=== PATIENT | female | born 1940 | race Caucasian/White ===

== ENCOUNTER → 2018-12-01 15:09 | Outpatient (CLI) | payer MEDICARE, OTHER, SELFPAY ==
[2018-12-01 16:13] LABS: Alanine Aminotransferase 44 U/L (12-78); Albumin/Globulin Ratio 1.3 (1.1-1.8); Alkaline Phosphatase 106 U/L (46-116); Anion Gap 15.4 mEq/L (5-15); Aspartate Amino Transferase 22 U/L (15-37); Bilirubin,Total 0.2 mg/dL (0.2-1.0); Blood Urea Nitrogen 13 mg/dL (7-18); Calcium 9.5 mg/dL (8.5-10.1); Carbon Dioxide 28 mmol/L (21.0-32.0); Chloride 101 mmol/L (98-107); Creatinine,Serum 0.69 mg/dL (0.55-1.02); Estimated Glomerular Filt Rate 83 ml/min (>60); GFR (African American) 100 ML/MIN (>60); Glucose 114 mg/dL (74-106); Potassium 5.4 mmoL/L (3.5-5.1); Sodium 139 mmol/L (136-145)
== END ==
PROVIDERS: Visit Provider Nurse Practitioner Family
DX: R10.32 Left lower quadrant pain (principal)
CPT/HCPCS: 36415; 80053

== ENCOUNTER → 2018-12-03 09:04 | Outpatient (CLI) | payer MEDICARE, OTHER, SELFPAY ==
--- NOTE | 2018-12-03 09:08 | CT_ITS ---
CT abdomen pelvis w con INDICATION: ITS.REASON: LLQ PAIN, HEMATOCHEZIA ORDERING PHYSICIAN: Jennifer Faulkner PATIENT AGE: 78 years COMPARISON: No previous . TECHNIQUE: 75 cc Optiray 350 followed IV contrast utilized. Oral contrast also utilized Axial images obtained with sagittal and coronal reformats. All CT scans at the facility use one or more dose reduction, viz: automated exposure control, ma/kV adjustment per patient size (including targeted exams where dose is matched to indication, i.e. head), or iterative reconstruction technique. FINDINGS: Lung bases. Nothing acute no significant findings. Abdomen/pelvis. Liver appears satisfactory. Spleen unremarkable. Previous cholecystectomy. No biliary duct dilatation. Pancreas. No significant findings. Modest volume and size pancreas with the upper normal caliber common duct as it passes of the head of pancreas likely reflecting postcholecystectomy changes. Diffuse at atherosclerotic calcification aorta and common iliac vessels with no dilatation Left adrenal mass, nodule measures up to 3.3 cm x 2.7 cm.. This is fairly low-density but does measure 60 hu on this postcontrast study-thus cannot confirm benign adenoma.. Will benefit from a follow-up CT with and without contrast on subsequent studies. Right adrenal unremarkable tract Kidneys appear normal size and appearance with no calculi nor obstruction. Ureters unremarkable Pelvis previous hysterectomy. No free fluid in cul-de-sac. Urinary bladder unremarkable GI TRACT The prominent colonic diverticulosis most pronounced & extensive throughout sigmoid colon. There are a few scattered diverticula at the descending colon. There is prominent diffuse wall thickening throughout the sigmoid colon. This involves up to over 12 cm length of colon. This diffuse involvement is more suggestive of a colitis however there are a few slightly slightly thickened diverticulum in some scant paracolic fat stranding superior to the proximal sigmoid colon, coronal 23 days 22 and sagittal slice 57, 56, which may reflect an area of diverticulitis associated with a more diffuse colitis. Once the current acute episode is resolved this segment warrants further evaluation with endoscopy to further evaluate. Proximal this point there is moderate to generous stool throughout the right and transverse colon and flexures. The terminal ileum appears normal. Appendix not discretely visualized but no appendicitis. Distal small bowel is normalProximal small bowel upper normal with increased fluid and gas in the moderate scattered air-fluid levels at the proximal small bowel. Stomach with upper normal wall thickness. Degenerative changes throughout the spine . Prominent degenerative disc space during most pronounced at L4/5 T12/L1 and L1/L2. IMPRESSION 1. Prominent colonic diverticulosis most extensive in pronounced at the sigmoid colon. 2. However there is very prominent diffuse wall thickening throughout the entire sigmoid colon. Suspect this reflects more diffuse underlying Sigmoid Inflammation/Colitis. . I would note minimal pericolic stranding above the proximal sigmoid colon, associated a few slightly thickened diverticulum. This may reflect may reflect an associated minimal acute diverticulitis component is well Follow-up endoscopy of this area was a current acute episode resolves recommended. 3. Incidental 3.3 cm left adrenal mass. Fairly low-density cannot confirm benign adenoma on this postcontrast study Recommend follow-up pre-and postcontrast CT study in follow-up to further evaluate. (Or follow-up CT adrenal protocol CT)
== END ==
PROVIDERS: PCP Nurse Practitioner Family; Visit Provider Nurse Practitioner Family
DX: R10.32 Left lower quadrant pain (principal); K92.1 Melena
CPT/HCPCS: 74177; Q9967

== ENCOUNTER → 2020-02-07 16:20 | Outpatient (CLI) | payer MEDICARE, OTHER, SELFPAY | PROVIDERS: Visit Provider Nurse Practitioner Family | DX: R19.7 Diarrhea, unspecified (principal) | CPT/HCPCS: 87045; 87177; 87493 ==

== ENCOUNTER 2020-02-15 10:27 | Observation (INO) | payer MEDICARE, OTHER, SELFPAY ==
--- NOTE | 2020-02-15 | US_ITS ---
APPROVED REPORT Exam Type: Ankle to Brachial Index Slater Apprentice: Maya Rios CRT Indications Claudication: Rest Pain: Current Smoker Risk Factors Hypertension Current Smoker Pressures/Indices Right Indices Left Indices Brachial 199.00 mmHg Brachial 194.00 mmHg Low Thigh 128.00 mmHg 0.64 Low Thigh 50.00 mmHg 0.25 Calf 131.00 mmHg 0.66 Calf 57.00 mmHg 0.29 Ankle(PT) 133.00 mmHg 0.67 Ankle(PT) 62.00 mmHg 0.31 Ankle(DP) 128.00 mmHg 0.64 Ankle(DP) 58.00 mmHg 0.29 Digit 86.00 mmHg 0.43 Digit Findings R ANTHONY 0.7 L ANTHONY 0.3 R TBI 0.4 L TBI Unobtainable Waveforms and pulses diminished Conclusion R ANTHONY 0.7 L ANTHONY 0.3 R TBI 0.4 L TBI Unobtainable Waveforms and pulses diminished Moderate right arterial disease Severe left arterial disease Critical Notification Critical Value: Yes Physician Notified Date: 02/15/2020 Time: 10:07 Physician Name: Jennifer Faulkner Report Read Back Electronically signed by : Roland Balbuena MD 02/15/2020 17:28:08
[2020-02-15 10:33] VITALS: BMI 17.1
--- NOTE | 2020-02-15 11:29 | ECG_ITS ---
APPROVED REPORT Exam: Resting ECG HR:69 bpm ECG Measurements Heart Rate 69 AXES OH 142 P 66 QRSd 78 QRS 83 QT 404 T 60 QTc 432 <Conclusion> Normal sinus rhythm Normal ECG Electronically signed by : Iglesia Silva, 02/16/2020 17:09:19
[2020-02-15 11:56] VITALS: PULSE 71; RESP 18; TEMP 36.6; O2SAT 97
--- NOTE | 2020-02-15 12:04 | P.CONPHA_ITS ---
[facility] Pharmacy VTE Monitoring - Patient Demographics Admission date: 02/15/20 Report Date: 02/15/20 Time: 12:04 Allergies/Adverse Reactions: Patient Allergies No Known Allergies Allergy (Verified 02/15/20 12:00) Height: 1.7 m Weight: 49.612 kg - VTE Risk VTE Score: 5 VTE Risk Level: Low Risk - Prophylaxis VTE Prophylaxis Ordered?: Yes Types of VTE Prophylaxis: TEDS Knee High Location of Applied Device: Bilateral Lower Extremeties
--- NOTE | 2020-02-15 12:20 | HMH.CNCARD ---
History of Present Illness Consult date: 02/15/20 Requesting physician: Iglesia Alcantar Chief complaint: Left leg pain Additional Medical History:: 1. Tobacco use 2. PAD A. ANTHONY, 02/15/2020, left 0.3, right 0.7 3. HTN 4. History of breast cancer, 2005 5. Colonic diverticulosis and possible colitis, CT of the abdomen 11/2018 6. 3.3 cm left adrenal mass, CT of the abdomen 11/2018 IMPRESSION 1. Prominent colonic diverticulosis most extensive in pronounced at the sigmoid colon. 2. However there is very prominent diffuse wall thickening throughout the entire sigmoid colon. Suspect this reflects more diffuse underlying Sigmoid Inflammation/Colitis. . I would note minimal pericolic stranding above the proximal sigmoid colon, associated a few slightly thickened diverticulum. This may reflect may reflect an associated minimal acute diverticulitis component is well Follow-up endoscopy of this area was a current acute episode resolves recommended. 3. Incidental 3.3 cm left adrenal mass. Fairly low-density cannot confirm benign adenoma on this postcontrast study Recommend follow-up pre-and postcontrast CT study in follow-up to further evaluate. (Or follow-up CT adrenal protocol CT) Dictated By: Terrance Zuniga Signed By: <Electronically signed by Terrance Zuniga in OV> 12/03/18 [id number] History of present illness: 79-year-old white female admitted by Dr. Alcantar after having an ANTHONY this morning for left leg pain with walking. Patient's ANTHONY on the left leg noted to be 0.3 and on the right leg 0.7. She relates increasing episodes of discomfort in the left ankle and lower calf area over the last several months (just walking from room to room in her house). She also relates discoloration of the ankle area. She denies any discomfort in the thighs or buttocks area. She does continue to smoke. She denies diabetes. [facility] History Medical History: Reports:: Cancer (BREAST IN 2005), Hypertension Denies:: Diabetes Mellitus Type 1, Diabetes Mellitus Type 2, MRSA *Have you ever received a pneumonia vaccine?: Yes *Have you received a flu vaccine this season?: Yes Other Surgeries: Yes: Cholecystectomy, Colonoscopy, Hysterectomy-Total Amputation: No - *Social History Smoking Status: Current every day smoker # Packs/Day (cigarettes): 1 Alcohol Intake: never *Occupational Status:: retired *Travel in the last 8 weeks: None Family Hx:: No significant family history Meds Home Medications Medication Instructions Recorded Confirmed Type Diphenoxylate HCl/Atropine 1 tab PO TIDP PRN 02/15/20 02/15/20 History [Lomotil 2.5-0.025 mg Tablet] Multivitamin 1 each PO DAILY 02/15/20 02/15/20 History atenoloL [Atenolol 100mg Tab] 100 mg PO DAILY 02/15/20 02/15/20 History Allergies Allergy/AdvReac Type Severity Reaction Status Date / Time No Known Allergies Allergy Verified 02/15/20 12:00 Review of Systems - Review of Systems Review of systems:: pertinent systems reviewed and negative unless documented below - *Cardiovascular Reports shortness of breath with activity, Denies chest pain - *Respiratory Reports shortness of breath with activity, Denies cough - *Gastrointestinal Denies bright, red blood in stools, Denies nausea, Denies vomiting - *Genitourinary Denies blood in urine - *Musculoskeletal Denies joint pain, Denies back pain - *Neurologic Denies dizziness, Denies fainting Exam Vital signs and Labs for Last 24 Hours: Temp Pulse Resp Pulse Ox 97.9 F 71 18 97 02/15/20 11:56 02/15/20 11:56 02/15/20 11:56 02/15/20 11:56 I & O for Last 24 hours: Intake & Output 02/13/20 02/14/20 02/15/20 02/16/20 11:59 11:59 11:59 11:59 Weight 109 lb 6 oz - *Routine HEENT Exam Head: Present: normocephalic Eye: Present: EOMI, PERRL ENT: Present: mucous membranes moist - *Routine Neck Exam Present: supple. Absent: JVD, carotid bruit - *Routine Respiratory Exam Present: CTA b
[2020-02-15 12:28] LABS: Basophils % 0.4 % (0.1-2.0); Chloride 96 mmol/L (98-107); Eosinophils # 0.1 K/mm3 (0.0-0.4); Eosinophils % 0.7 % (0.1-12.0); Hematocrit 51.4 % (37.0-47.0); Hemoglobin 17.6 g/dL (12.2-16.2); Lymphocytes # 1.9 K/mm3 (0.7-4.5); Lymphocytes % 16.9 % (10-50); Mean Corpuscular HGB Conc 34.3 g/dL (31.8-35.4); Mean Corpuscular Hemoglobin 35.3 pg (27.0-31.2); Mean Corpuscular Volume 102.9 fl (81-99); Mean Platelet Volume 7.6 fl (7.4-10.4); Monocytes # 0.6 K/mm3 (0.1-1.0); Monocytes % 4.9 % (1.7-9.3); Neutrophils # 8.6 K/mm3 (1.8-7.8); Neutrophils % 77.2 % (37.0-80.0); Platelet Count 453 K/mm3 (142-424); Potassium 4.2 mmoL/L (3.5-5.1); Red Blood Count 4.99 M/mm3 (4.20-5.40); Red Cell Distribution Width 12.7 % (11.5-17.5); Sodium 135 mmol/L (136-145); White Blood Count 11.2 K/mm3 (4.8-10.8)
[2020-02-15 12:31] LABS: Anion Gap 12.2 mEq/L (5-15); Blood Urea Nitrogen 13 mg/dl (7-17); Carbon Dioxide 31 mmol/L (22.0-30.0); Creatinine Clearance Estimated 37 mL/min (50-200); Estimated Glomerular Filt Rate 97 ml/min (>60); GFR (African American) 117 ML/MIN (>60)
[2020-02-15 12:32] LABS: Calcium 9.4 mg/dl (8.4-10.2); Glucose 102 mg/dl (74-100)
--- NOTE | 2020-02-15 12:52 | PC.NURSE ---
Jesus AGUILAR CALLED THIS RN AND STATED PT WOULD NOT HAVE PROCEDURE TODAY SO SHE CAN HAVE A REGULAR DIET TRAY. PROCEDURE IS PLANNED FOR TOMORROW.
[2020-02-15 16:00] VITALS: BP 145/95; PULSE 72; RESP 14; TEMP 36.6; O2SAT 98
--- NOTE | 2020-02-15 16:50 | HMH.HP ---
*Admission Date: 02/15/20 *Chief complaint: Left foot pain *History of present illness: 79-year-old female with history of hypertension and cigarette use was admitted to the hospital after abnormal ANTHONY revealed severe peripheral arterial disease in the left lower leg. Patient does not have rest pain but does have pain in the left lower leg with standing and light activity. She has no personal history of ulcerations or vascular disease. Due to severity of disease patient was admitted for cardiology consultation. Patient has been evaluated by cardiology and is scheduled for catheterization and potential intervention in the morning [facility] History I have reviewed the patient's past medical history: Yes Medical History: Reports:: Cancer (BREAST IN 2005), Hypertension Denies:: Diabetes Mellitus Type 1, Diabetes Mellitus Type 2, MRSA *Have you ever received a pneumonia vaccine?: Yes *Have you received a flu vaccine this season?: Yes Other Surgeries: Yes: Cholecystectomy, Colonoscopy, Hysterectomy-Total Amputation: No - *Social History Smoking Status: Current every day smoker # Packs/Day (cigarettes): 1 Alcohol Intake: never *Occupational Status:: retired *Travel in the last 8 weeks: None Family Hx:: No significant family history Review of Systems - Review of Systems Review of systems:: pertinent systems reviewed and negative unless documented below - *Neurologic Denies dizziness, Denies fainting Meds Home Medications Medication Instructions Recorded Confirmed Type Diphenoxylate HCl/Atropine 1 tab PO TIDP PRN 02/15/20 02/15/20 History [Lomotil 2.5-0.025 mg Tablet] Multivitamin 1 each PO DAILY 02/15/20 02/15/20 History atenoloL [Atenolol 100mg Tab] 100 mg PO DAILY 02/15/20 02/15/20 History Allergies Allergy/AdvReac Type Severity Reaction Status Date / Time No Known Allergies Allergy Verified 02/15/20 12:00 Exam Vital signs and Labs for Last 24 Hours: Temp Pulse Resp BP Pulse Ox 97.8 F 72 14 145/95 H 98 02/15/20 16:00 02/15/20 16:00 02/15/20 16:00 02/15/20 16:00 02/15/20 16:00 Laboratory Results - last 24 hr 02/15/20 11:30: WBC 11.2 H, RBC 4.99, Hgb 17.6 H, Hct 51.4 H, MCV 102.9 H, MCH 35.3 H, MCHC 34.3, RDW 12.7, Plt Count 453 H, MPV 7.6, Neut % (Auto) 77.2, Lymph % (Auto) 16.9, [place] % (Auto) 4.9, Eos % (Auto) 0.7, Baso % (Auto) 0.4, Neut # (Auto) 8.6 H, Lymph # (Auto) 1.9, [place] # (Auto) 0.6, Eos # (Auto) 0.1, Baso # (Auto) 0.0 02/15/20 11:30: Sodium 135 L, Potassium 4.2, Chloride 96 L, Carbon Dioxide 31 H, Anion Gap 12.2, BUN 13, Creatinine 0.60, Estimated Creat Clear 37, Estimated GFR 97, Est GFR ( Amer) 117, Glucose 102 H, Calcium 9.4 I & O for Last 24 hours: Intake & Output 02/13/20 02/14/20 02/15/20 02/16/20 11:59 11:59 11:59 11:59 Weight 109 lb 6 oz Narrative: Patient is awake and alert sitting up in bed. Lungs are clear. Heart has a regular rate and rhythm. Abdomen is soft. Patient has active range of motion in the lower extremities. There is some faint erythema of the skin of the left foot and ankle. Patient has palpable pulses in both femoral arteries, right popliteal artery at 1+, I am unable to elicit a left popliteal arterial pulse, faintly palpable dorsalis pedis pulse in the right foot, nonpalpable pulse in the left foot Assessment and Plan (1) Claudication of both lower extremities Current visit: Yes Status: Acute Category: Medical Code(s): I73.9 - Peripheral vascular disease, unspecified (2) Peripheral arterial disease Current visit: Yes Status: Acute Category: Medical Code(s): I73.9 - Peripheral vascular disease, unspecified (3) Tobacco use Current visit: Yes Status: Acute Category: Social Hx Code(s): Z72.0 - Tobacco use (4) Hypertension Current visit: Yes Status: Acute Category: Medical Code(s): I10 - Essential (primary) hypertension - Assessment and plan all Dx Assessment and Plan for all problems:: Stacey
[2020-02-15 19:52] VITALS: BP 158/82; PULSE 73; RESP 16; TEMP 36.9; O2SAT 96
[2020-02-15 20:00] VITALS: O2SAT 96
[2020-02-16] VITALS (45 sets, daily range): BP systolic 105–186; BP diastolic 58–104; PULSE 56–78; RESP 16–18; TEMP 36.3–36.8; O2SAT 91–100; BMI 17.4
--- NOTE | 2020-02-16 | IR_ITS ---
APPROVED REPORT Patient Location: Inpatient PROCEDURES Right femoral arterial access Right retrograde femoral angiogram Catheter placement in the abdominal aorta Abdominal aortography Repositioning of the catheter in the abdominal aorta Bilateral iliofemoral runoff Left femoral arterial access Left retrograde femoral angiogram Bare-metal stent deployment to the distal abdominal aorta extending to the right and left common iliac artery Bare-metal stent deployment to the left external iliac artery INDICATION Limb threatening ischemia left leg 0.3 [place] class IV, Occluded left common and external iliac artery, Severe stenosis in the right common iliac artery, Peripheral artery disease Informed consent was obtained prior to the procedure. COMPLICATIONS none Estimated Blood Loss: less than 10 mls TECHNIQUE 1% lidocaine used anesthetize the right groin the right femoral artery was accessed via the Salinger technique and retrograde angiography was performed. An advantage wire was used to traverse the tortuosity and atherosclerosis in the right common iliac artery and the pigtail catheter was placed into the distal abdominal aorta. Abdominal aortography was performed. Following this bilateral runoff was performed. The catheter was repositioned for the bilateral iliofemoral runoff. Following this 1% lidocaine was used to anesthetize the left groin and the left femoral artery was accessed via the Salinger technique. Retrograde angiography was performed. Therapeutic heparin was administered. 6 Nepali sheaths were placed over the wire into the right and left femoral artery. Two 8 mm x 100 mm self-expanding stents were deployed in the distal abdominal aorta extending into the bilateral common iliac arteries. An additional 7 mm x 80 mm self-expanding stent was placed in the left external iliac artery followed by an additional 6 mm x 40 mm self-expanding stent into the distal portion of the left external iliac artery. Following this to 7 mm x 80 mm balloons were deployed in the distal abdominal aorta at 12 janice each to post dilate. A 7 mm x 20 mm balloon was deployed at 14 janice in the right common iliac artery to post dilate the eccentric lesion. Excellent angiographic results were obtained. At the end of the procedure the patient was transferred to the postop holding her in stable condition for sheath removal ANGIOGRAPHIC RESULTS The distal abdominal aorta is mildly calcified with no significant stenosis greater than 20%. The left common internal and external iliac artery is completely occluded. There is reconstitution at the left common femoral artery. The right common iliac artery has an ostial complex calcified concentric 80% stenosis followed by 40% additional stenoses right internal iliac arteries patent and the right external iliac artery has a 50% eccentric stenosis. The right profunda femoris artery is a small atretic artery barely visualized. The right superficial femoral artery is a large-caliber vessel giving branches out to the thigh muscles. Proximally there are 30 and 40% stenoses with mid vessel 50% stenosis. The SFA is a large caliber vessel which extends into a widely patent right popliteal artery with mild atheromatous plaque. Distally the anterior tibialis posterior tibialis and peroneal artery are severely diseased. There appears to be scant two-vessel flow into the foot from the peroneal artery and posterior tibialis artery. The left profunda femoris artery is widely patent. The left superficial femoral artery is proximally occluded and occluded through its entire course. There is reconstitution at Terry's canal. The left popliteal artery is a small caliber artery but mac
--- NOTE | 2020-02-16 03:27 | PC.NURSE ---
Pt is A&Ox4 and has ambulated independently in room and tolerated well. Pt denies any pain, N/V/D, or SOA. LLE foot cool to touch, light purple in color, and increased cap refill time compared to right foot. Doppler used to detect dorsalis pedis and posterior tibia artery pulses. Faint pulses noted to right foot. Lungs CTA and sats 96-98% on room air. Pt has been NPO for anticipated BLE angiogram in am. VSS, call light within reach, will continue to monitor.
--- NOTE | 2020-02-16 07:23 | P.PN_ITS ---
Internal Medicine - PN: Subj *Date: 02/16/20 *Time: 07:23 Interval history: Patient has no complaints. She denies any discomfort from the left foot overnight. Exam Vital signs and Labs for Last 24 Hours: Temp Pulse Resp BP Pulse Ox 97.7 F 60 16 156/64 H 94 L 02/16/20 04:00 02/16/20 04:00 02/16/20 04:00 02/16/20 04:00 02/16/20 04:00 Laboratory Results - last 24 hr 02/15/20 11:30: WBC 11.2 H, RBC 4.99, Hgb 17.6 H, Hct 51.4 H, MCV 102.9 H, MCH 35.3 H, MCHC 34.3, RDW 12.7, Plt Count 453 H, MPV 7.6, Neut % (Auto) 77.2, Lymph % (Auto) 16.9, [place] % (Auto) 4.9, Eos % (Auto) 0.7, Baso % (Auto) 0.4, Neut # (Auto) 8.6 H, Lymph # (Auto) 1.9, [place] # (Auto) 0.6, Eos # (Auto) 0.1, Baso # (Auto) 0.0 02/15/20 11:30: Sodium 135 L, Potassium 4.2, Chloride 96 L, Carbon Dioxide 31 H, Anion Gap 12.2, BUN 13, Creatinine 0.60, Estimated Creat Clear 37, Estimated GFR 97, Est GFR ( Amer) 117, Glucose 102 H, Calcium 9.4 I & O for Last 24 hours: Intake & Output 02/13/20 02/14/20 02/15/20 02/16/20 11:59 11:59 11:59 11:59 Intake Total 260 / 260 Balance 260 / 260 Weight 109 lb 6 oz 111 lb 1 oz Narrative: Patient appears comfortable. Lungs are distant but clear. Heart has a regular rate and rhythm. Assessment and Plan (1) Claudication of both lower extremities Current visit: Yes Status: Acute Category: Medical Code(s): I73.9 - Peripheral vascular disease, unspecified (2) Peripheral arterial disease Current visit: Yes Status: Acute Category: Medical Code(s): I73.9 - Peripheral vascular disease, unspecified (3) Tobacco use Current visit: Yes Status: Acute Category: Social Hx Code(s): Z72.0 - Tobacco use (4) Hypertension Current visit: Yes Status: Acute Category: Medical Code(s): I10 - Essential (primary) hypertension - Assessment and plan all Dx Assessment and Plan for all problems:: Patient will have angiogram with bilateral runoffs today with attention to the left lower leg.
--- NOTE | 2020-02-16 09:08 | HMH.PNCARD ---
Subjective Date: 02/16/20 Time: 09:05 Principal diagnosis: severe PAD Interval history: This is a 79-year-old white female who was admitted to the hospital with severe PAD, abnormal ANTHONY and claudication. The patient states that she has been having discomfort in her left leg, ankle and lower calf over the last several months. She states that she has the pain in her left lower extremity when she is just walking around her house from room to room. She states that the pain does start with walking about 50 yards or so. She states that she does have some discoloration in her left ankle area at times. The patient states that she does have aching in her right lower extremity as well but it is not as bad as her left lower extremity. She denies any chest pain or pressure. She denies any shortness of breath or edema. She denies any fever, chills, nausea, vomiting, diarrhea, PND or orthopnea. She does continue to smoke. ANTHONY showed left leg noted to be 0.3 and on the right leg 0.7. Exam Vital signs and Labs for Last 24 Hours: Temp Pulse Resp BP Pulse Ox 98.2 F 69 16 155/79 H 95 02/16/20 08:00 02/16/20 08:00 02/16/20 08:00 02/16/20 08:00 02/16/20 08:00 Laboratory Results - last 24 hr 02/15/20 11:30: WBC 11.2 H, RBC 4.99, Hgb 17.6 H, Hct 51.4 H, MCV 102.9 H, MCH 35.3 H, MCHC 34.3, RDW 12.7, Plt Count 453 H, MPV 7.6, Neut % (Auto) 77.2, Lymph % (Auto) 16.9, [place] % (Auto) 4.9, Eos % (Auto) 0.7, Baso % (Auto) 0.4, Neut # (Auto) 8.6 H, Lymph # (Auto) 1.9, [place] # (Auto) 0.6, Eos # (Auto) 0.1, Baso # (Auto) 0.0 02/15/20 11:30: Sodium 135 L, Potassium 4.2, Chloride 96 L, Carbon Dioxide 31 H, Anion Gap 12.2, BUN 13, Creatinine 0.60, Estimated Creat Clear 37, Estimated GFR 97, Est GFR ( Amer) 117, Glucose 102 H, Calcium 9.4 I & O for Last 24 hours: Intake & Output 02/13/20 02/14/20 02/15/20 02/16/20 23:59 23:59 23:59 23:59 Intake Total 260 / 260 0 / 0 Balance 260 / 260 0 / 0 Weight 109 lb 6 oz 111 lb 1 oz - Constitutional no acute distress, thin - *Routine HEENT Exam Head: Present: normocephalic, atraumatic Eye: Present: EOMI, PERRL ENT: Present: mucous membranes moist - *Routine Neck Exam Present: supple, full ROM, normal carotid upstroke. Absent: JVD, carotid bruit, lymphadenopathy - *Routine Respiratory Exam Present: CTA bilaterally - *Routine Cardiovascular Exam Present: RRR, Normal S1, Normal S2. Absent: murmur - *Routine Abdominal Exam Present: soft, normoactive bowel sounds. Absent: tenderness, distended - *Routine Extremities Exam Present: full ROM, pulses intact (Except right and left PT and DP pulses are diminished), normal capillary refill. Absent: cyanosis, clubbing, edema - *Routine Skin Exam Present: intact, warm. Absent: erythema, rash - *Routine Neurological Exam Present: alert, oriented X3, CN II-XII intact. Absent: sensory deficit, motor deficit Progress Note: A&P (1) Claudication of both lower extremities Status: Acute Current Visit: Yes (2) Abnormal ankle brachial index (ANTHONY) Status: Acute Current Visit: Yes (3) Peripheral arterial disease Status: Acute Current Visit: Yes (4) Tobacco use Status: Acute Current Visit: Yes (5) Hypertension Status: Acute Current Visit: Yes Assessment and Plan for All Diagnoses:: Plan 1. The patient was admitted to the hospital secondary to claudication and PAD. She does have an abnormal ANTHONY, Patient's ANTHONY on the left leg noted to be 0.3 and on the right leg 0.7. She is scheduled to undergo bilateral iliofemoral runoff today secondary to her claudication, severe PAD and abnormal ANTHONY. If the patient requires any intervention will start on her left leg first as her left leg is more painful than her right. 2. The patient is educated the risk and benefits of proceeding with bilateral iliofemoral runoff. The patient verbalized understanding and is agreeable to proceeding with the procedure. 3. PAD is present.
--- NOTE | 2020-02-16 12:12 | PC.NURSE ---
1202 patient off floor
[2020-02-16 15:11] LABS: Microscopic, Urine URINE MICROSCOPIC (MICROSCOPIC)
[2020-02-16 15:18] LABS: Appearance,Urine CLEAR (Clear); Bilirubin,Urine Negative (Negative); Blood, Urine TRACE-L (Negative); Color,Urine YELLOW (Yellow); Glucose,Urine (UA) Negative (Negative); Ketones,Urine Negative (Negative); Leukocyte Esterase,Urine Negative (Negative); Nitrate,Urine Negative (Negative); Protein,Urine Negative (Negative); Specific Gravity, Urine <= 1.005 (1.005-1.030); Urobilinogen,Urine 0.2 EU/dl (0.2)
--- NOTE | 2020-02-16 15:21 | PC.NURSE ---
1500 PATIENT BACK ON FLOOR. A&O X4, LUNGS DIMINSHED, BUE PULSES +2, BLE PULSES +1. DRESSING ON RIGHT GROIN IS CLEAN, DRY AND INTACT. DRESSING ON LEFT GROIN HAS A SCANT AMOUNT OF BLOODY DRAINAGE. THIS RN ENCIRCLED AREA TO BETTER MONITOR. SPOUSE AT BEDSIDE. NO NEEDS OR CONCERNS AT THIS TIME.
[2020-02-16 15:42] LABS: Bacteria,Urine Trace /lpf; Squamous Epithelial Cell,Urine Occasional #/hpf (0-5)
[2020-02-16 16:03] LABS: CATHL Activated Clotting Time 286 SEC (74-125)
--- NOTE | 2020-02-16 19:11 | PC.NURSE ---
report given to hiram
[2020-02-17 04:00] VITALS: BP 134/75; PULSE 66; RESP 17; TEMP 36.8; O2SAT 94
[2020-02-17 05:00] VITALS: BMI 17.4
[2020-02-17 06:45] LABS: Basophils # 0.1 K/mm3 (0-0.2); Basophils % 0.4 % (0.1-2.0); Eosinophils # 0.1 K/mm3 (0.0-0.4); Eosinophils % 0.8 % (0.1-12.0); Hematocrit 43.9 % (37.0-47.0); Hemoglobin 14.9 g/dL (12.2-16.2); Lymphocytes # 1.8 K/mm3 (0.7-4.5); Lymphocytes % 13.9 % (10-50); Mean Corpuscular HGB Conc 34.1 g/dL (31.8-35.4); Mean Corpuscular Hemoglobin 35.7 pg (27.0-31.2); Mean Corpuscular Volume 104.9 fl (81-99); Mean Platelet Volume 6.7 fl (7.4-10.4); Monocytes # 0.6 K/mm3 (0.1-1.0); Monocytes % 4.8 % (1.7-9.3); Neutrophils # 10.4 K/mm3 (1.8-7.8); Neutrophils % 80.1 % (37.0-80.0); Platelet Count 319 K/mm3 (142-424); Red Blood Count 4.18 M/mm3 (4.20-5.40); Red Cell Distribution Width 12.8 % (11.5-17.5); White Blood Count 12.9 K/mm3 (4.8-10.8)
[2020-02-17 06:58] LABS: Chloride 102 mmol/L (98-107); Potassium 4.1 mmoL/L (3.5-5.1); Sodium 135 mmol/L (136-145)
[2020-02-17 07:00] LABS: Alanine Aminotransferase 30 U/L (12-78); Anion Gap 6.1 mEq/L (5-15); Aspartate Amino Transferase 43 U/L (14-36); Bilirubin,Unconjugated 0.4 mg/dL (0.0-1.1); Blood Urea Nitrogen 15 mg/dl (7-17); Carbon Dioxide 31 mmol/L (22.0-30.0); Creatinine Clearance Estimated 37 mL/min (50-200); Estimated Glomerular Filt Rate 120 ml/min (>60); GFR (African American) 145 ML/MIN (>60)
--- NOTE | 2020-02-17 07:00 | PC.NURSE ---
Pt is A&Ox4 and has ambulated well in room. Bilateral groin cath sites remain soft, slight bruising noted below dressings, and right groin site is C/D/I. The left groin site has some bleeding on previous shift and 2 border lines are marked. No further bleeding this shift.
[2020-02-17 07:01] LABS: Alkaline Phosphatase 81 U/L (38-126); Bilirubin,Direct 0.1 mg/dl (0.0-0.4); Bilirubin,Indirect 0.4 mg/dL (0.0-0.9); Bilirubin,Total 0.5 mg/dl (0.2-1.3); Calcium 8.9 mg/dl (8.4-10.2); Chol/HDL Ratio 2.6 (1-3.5); Cholesterol 166 mg/dl (140-200); Glucose 112 mg/dl (74-100); HDL Cholesterol 64 mg/dl (40-60); Total Protein,Serum 6.5 g/dl (6.3-8.2); Triglycerides 105 mg/dl (30-150); VLDL Cholesterol 21 mg/dL (0-40)
[2020-02-17 07:12] LABS: Direct LDL Cholesterol 83.24 mg/dL (100-129)
--- NOTE | 2020-02-17 07:15 | HMH.DCSUM ---
General - General Admission date:: 02/15/20 Discharge date: 02/17/20 HPI HPI: 79-year-old female with history of hypertension and cigarette use was admitted to the hospital after abnormal ANTHONY revealed severe peripheral arterial disease in the left lower leg. Patient does not have rest pain but does have pain in the left lower leg with standing and light activity. She has no personal history of ulcerations or vascular disease. Due to severity of disease patient was admitted for cardiology consultation. Patient has been evaluated by cardiology and is scheduled for catheterization and potential intervention in the morning Hospital Course Hospital Course: Patient was admitted. Cardiology was consulted. Angiogram with bilateral runoff with attention to the left was scheduled. On February 15 patient had angiogram by Dr. Coates. Findings are as follows: NGIOGRAPHIC RESULTS The distal abdominal aorta is mildly calcified with no significant stenosis greater than 20%. The left common internal and external iliac artery is completely occluded. There is reconstitution at the left common femoral artery. The right common iliac artery has an ostial complex calcified concentric 80% stenosis followed by 40% additional stenoses right internal iliac arteries patent and the right external iliac artery has a 50% eccentric stenosis. The right profunda femoris artery is a small atretic artery barely visualized. The right superficial femoral artery is a large-caliber vessel giving branches out to the thigh muscles. Proximally there are 30 and 40% stenoses with mid vessel 50% stenosis. The SFA is a large caliber vessel which extends into a widely patent right popliteal artery with mild atheromatous plaque. Distally the anterior tibialis posterior tibialis and peroneal artery are severely diseased. There appears to be scant two-vessel flow into the foot from the peroneal artery and posterior tibialis artery. The left profunda femoris artery is widely patent. The left superficial femoral artery is proximally occluded and occluded through its entire course. There is reconstitution at Terry's canal. The left popliteal artery is a small caliber artery but patent and gives rise to a small but patent anterior tibialis artery and posterior tibialis artery. The peroneal artery is barely identifiable. There does appear to be some scant flow with two-vessel runoff into the left foot. IMPRESSION Peripheral artery disease as described above most notably with occluded left common iliac artery internal and external iliac artery with successful reconstruction of the common and external iliac artery reducing the complete occlusion to less than 10% with 3 self-expanding stents as described above Successful reconstruction of the right common iliac artery severe disease reduced to less than 10% with one self-expanding bare-metal stent PLAN 1. Aspirin Plavix for 1 month followed by aspirin 81 daily combined with Xarelto 2.5 twice daily 2. Medical management 3. Physical therapy with rehabilitation 4. LDL less than 55 5. Avoidance of tobacco products 6. No attempt will be made to open the left superficial femoral artery unless limb threatening ischemia persists. By increasing inflow through the common and external iliac artery there should be significant improvement in the lower extremity ischemia Patient was observed overnight. She reported improvement in warmth of the foot. She denied any pain with ambulation. Patient was discharged home. She will follow-up in my office in [address] Coates as instructed Objective Vital signs: Temp Pulse Resp BP Pulse Ox 98.2 F 66 17 134/75 94 L 02/17/20 04:00 02/17/20 04:00 02/17/20 04:00 02/17/20 04:00 02/17/20 04:00 no acute distress - *Routine Respiratory Exam Present: CTA bilaterally - *Routine Cardiovascular Exam Present: RRR
[2020-02-17 07:32] VITALS: BP 131/55; PULSE 70; RESP 17; TEMP 36.6; O2SAT 94
--- NOTE | 2020-02-17 08:19 | HMH.PHACLD ---
April Leary has received discharge medication counseling on the following medications: NEW MEDICATIONS FOR PERIPHERAL STENT: ASPIRIN, PLAVIX, LIPITOR ANSWERED PATIENT'S QUESTIONS ABOUT SIDE EFFECTS.
[2020-06-13 09:29] LABS: CATHL Activated Clotting Time 164 SEC (74-125)
== END 2020-02-17 08:26 | disposition home or self-care (01) ==
LOC: 2ND 10:27
PROVIDERS: Internal Medicine; Nurse Practitioner Family; Admitting Provider Family Medicine; PCP Nurse Practitioner Family; Visit Provider Family Medicine
DX: I70.223 Atherosclerosis of native arteries of extremities with rest pain, bilateral legs (principal); I70.213 Atherosclerosis of native arteries of extremities with intermittent claudication, bilateral legs; I10 Essential (primary) hypertension; Z72.0 Tobacco use; I74.5 Embolism and thrombosis of iliac artery; I70.92 Chronic total occlusion of artery of the extremities; Z79.899 Other long term (current) drug therapy; I77.1 Stricture of artery
CPT/HCPCS: 36415; 37221; 37223; 80048; 80061; 80076; 81001; 85025; 85347; 93005; 93923; 99152; 99153; C1725; C1769; C1876; C1894; G0378; J1644; Q9966

== ENCOUNTER → 2021-04-16 15:22 | Outpatient (CLI) | payer MEDICARE, OTHER, SELFPAY ==
--- NOTE | 2021-04-16 15:29 | XR_ITS ---
PROCEDURE: XR CHEST 2V CLINICAL HISTORY: HTN,COUGH COMPARISON: CT ABDPELW CT abdomen pelvis w con from 12/03/2018 FINDINGS: The cardiomediastinal silhouette and pulmonary vascularity are within normal limits. There is hyperinflation with attenuation of the peripheral pulmonary vessels consistent with COPD/small airway disease. No lobar consolidation or collapse. Degenerative changes thoracolumbar junction. IMPRESSION: No acute findings. Dictated by: Roland Balbuena MD 04/16/2021 16:18 Roland Balbuena MD in [facility] 04/16/2021 16:18
== END ==
PROVIDERS: PCP Nurse Practitioner Family; Visit Provider Nurse Practitioner Family
DX: I10 Essential (primary) hypertension (principal); R05 Cough
CPT/HCPCS: 71046

== ENCOUNTER → 2021-04-24 09:04 | Outpatient (CLI) | payer MEDICARE, OTHER, SELFPAY ==
--- NOTE | 2021-04-24 09:08 | XR_ITS ---
PROCEDURE: XR DEXA AXIAL SKELETON CLINICAL HISTORY: OSTEOPOROSIS,SCREENING COMPARISON: No exams were available for comparison FINDINGS: The right hip BMD is 0.790 with a T-score of -1.2. The left hip BMD is 0.711 with a T-score of -1.9. The lumbar spine BMD is 1.123 with a T-score of 0.7. IMPRESSION: This patient is considered osteopenic according to the World Health Organization criteria. Bone density is between 10 and 25 percent below young normal. Fracture risk is moderate. Treatment is advised. Based on these results a follow-up exam is recommended in 2 year. Dictated by: Roland Balbuena MD 04/24/2021 15:34 Roland Balbuena MD in [facility] 04/24/2021 15:34
--- NOTE | 2021-04-24 09:26 | CA_ITS ---
APPROVED REPORT Recreation Programmer: EDOUARD Laterality: Bilateral Study Quality: Good Indications: bilateral bruits, PAD Risk Factors Hypertension: Hyperlipidemia PAD Smoking Doppler Spectral Velocity Analysis ECA (R) 135.40/12.00 cm/s ECA (L) 80.30/9.60 cm/s dICA (R) 99.40/34.30 cm/s dICA (L) 116.50/33.70 cm/s Una (R) 87.40/27.40 cm/s Una (L) 81.90/19.30 cm/s pICA (R) 53.10/16.30 cm/s pICA (L) 59.10/18.60 cm/s dCCA (R) 58.30/17.10 cm/s dCCA (L) 91.80/12.80 cm/s pCCA (R) 76.30/15.40 cm/s pCCA (L) 78.80/17.10 cm/s Vert (R) 64.30/8.60 cm/s Vert (L) 29.50/7.70 cm/s ICA/CCA 1.71 ICA/CCA 1.27 Findings Duplex evaluation demonstrates stenosis of the right proximal internal carotid artery <20%. Duplex evaluation demonstrates stenosis of the left proximal internal carotid artery <20%. Conclusion Duplex evaluation demonstrates stenosis of the right proximal internal carotid artery <20%. Duplex evaluation demonstrates stenosis of the left proximal internal carotid artery <20%. Electronically signed by : Roland Balbuena MD 04/24/2021 16:42:28
== END ==
PROVIDERS: PCP Nurse Practitioner Family; Visit Provider Nurse Practitioner Family
DX: R42 Dizziness and giddiness (principal); I73.9 Peripheral vascular disease, unspecified; Z13.6 Encounter for screening for cardiovascular disorders; Z13.820 Encounter for screening for osteoporosis; Z78.0 Asymptomatic menopausal state
CPT/HCPCS: 77080; 93880

== ENCOUNTER → 2021-06-25 07:16 | Outpatient (CLI) | payer MEDICARE, OTHER, SELFPAY ==
--- NOTE | 2021-06-25 | CA_ITS ---
APPROVED REPORT Exam: Pharmacologic Technologist: Elen Paez, Ht: 5 ft 7 in Wt: 110 lbs BSA: 1.57 m2 HR: 59 bpm BP: 160/90 mmHg Medical History Medications: Aspirin,,,,, Atenolol,,,,, Atorvastatin,,,,, XaRELTO,,,,, Multivitamin,,,,, VitaminC,,,,, Stress Test Details Test: LEXISCAN HR Resting HR: 64 bpm Max Heart Rate (APMHR): 142.498891 bpm Max HR Achieved: 85 bpm Target HR (85% APMHR): 120.795369 bpm % of APMHR: 59.86 Recovery HR: 82 bpm BP Resting BP: 160/90 mmHg Max BP: 160/90 mmHg Recovery BP: 133.0/74.0 mmHg ECG Resting ECG: Sinus Shay Clinical Reason for Termination: Completed Protocol Exercise duration: 04:04 min Highest Stage Achieved: Exercise capacity: 1.0 METs Stress ECG Conclusion Symptoms: None. Arrhythmias/Ectoy: None. ST-T Changes: <1.5mm ST Segment changes. Conclusion: Non-Diagnostic. Electronically signed by : Kevne Coates MD 06/27/2021 13:56:07
--- NOTE | 2021-06-25 07:16 | NM_ITS ---
APPROVED REPORT Exam: Nuclear Stress Test Indication: HTN, High cholesterol, Tobacco use, Chest pain, SOB Patient Location: Outpatient Stress Tech: Elen Paez [place] Tech:Elizabeth Parker, ARRT, RT (R)(N) Ht: 5 ft 6 in Wt: 112 lbs Bra Size: 34B HR: 64 bpm BP: 160/90 mmHg BSA: 1.56 m2 BMI: 18.0 History: HTN, High cholesterol, Tobacco use, Chest pain, SOB Procedure: Patient received a 0.4 mg of intravenous Lexiscan, resting heart rate 64 bpm, resting blood pressure 160/90 mmHg, with Lexiscan maximum heart rate achived was 85 bpm which is Less than 85 % of the maximum predicted heart rate and blood pressure was 160/90 mmHg. With Lexiscan, patient denied any complaint of chest pain. Electrocardiogram Resting electrocardiogram shows sinus rhythm, with Lexiscan there is less than 1.[address] segment depression noted from the baseline EKG. The EKG portion of the Lexiscan is nondiagnostic. Cardiac Stress and Resting SPECT Images: Cardiac Stress and Resting SPECT images were obtained using technetium 99m Myoview 30.5 mCi stress and 10.11 mCi at rest. Gated SPECT for analysis of segmental wall motion calculation of the ejection fraction also done. Prone images were also obtained. Cardiac stress and resting SPECT images show uniform myocardial activity without segmental perfusion abnormality, computer derived ejection fraction is 58% with no regional wall motion abnormality, right ventricle is normal size and contractility. Conclusion: 1. The EKG portion of the Lexiscan is nondiagnostic. 2. No scintigraphic evidence of reversible ischemia seen, computer derived ejection fraction 58% with no regional wall motion abnormality, right ventricle is normal size and contractility. 3. Normal Lexiscan Myoview study. Electronically signed by : Jemal Castañeda MD 07/05/2021 10:25:48
--- NOTE | 2021-06-25 09:14 | HMH.ITSHM ---
Current Home Medications as stated by this patient April Leary or veterans employment representative. []VITAMIN C RIVAROXABAN ATENOLOL MULTIVITAMIN ATORVASTATIN ASA
== END ==
PROVIDERS: PCP Nurse Practitioner Family; Visit Provider Physician Assistant
DX: R06.02 Shortness of breath (principal)
CPT/HCPCS: 78452; 93017; 93306; A9502; J2785

== ENCOUNTER 2022-08-08 20:54 | Emergency (ER) | payer MEDICARE, OTHER, SELFPAY ==
[2022-08-08 20:56] VITALS: BP 182/98; PULSE 62; RESP 16; TEMP 37; O2SAT 97; BMI 18.1
--- NOTE | 2022-08-08 21:23 | CT_ITS ---
PROCEDURE INFORMATION: Exam: CT Head Without Contrast Exam date and time: 08/08/2022 9:39 PM Age: 81 years old Clinical indication: Injury or trauma; Fall; Additional info: Head injury TECHNIQUE: Imaging protocol: Computed tomography of the head without contrast. Radiation optimization: All CT scans at this facility use at least one of these dose optimization techniques: automated exposure control; mA and/or kV adjustment per patient size (includes targeted exams where dose is matched to clinical indication); or iterative reconstruction. COMPARISON: US CA CAROTID DUPLEX BI 04/24/2021 9:34 AM FINDINGS: Brain: A nonacute lacunar infarct is visualized within the left thalamus. Artifact limits evaluation of the filemon. No acute intracranial hemorrhage is visualized. Hypodensity is identified within the anterior right temporal lobe, likely contributed by artifact, although edema/infarction cannot be excluded. Artifact also limits evaluation of the anterior left temporal lobe. There are scattered foci/areas of white matter hypodensity, likely representing small vessel ischemic disease. The acuity of the white matter disease is indeterminate. There is no midline shift. There is mild prominence of sulci, compatible with atrophy. Cerebral ventricles: No ventriculomegaly. Paranasal sinuses: Visualized sinuses are unremarkable. No fluid levels. Mastoid air cells: Minimal effusions within left mastoid air cells. Bones/joints: The calvarium demonstrates no evidence for a depressed fracture. Soft tissues: Soft tissue swelling/hematoma of the right parietal scalp. Vasculature: Nonspecific increased density of the intracranial arteries, with symmetric density of the middle cerebral arteries. This is of indeterminate clinical significance. Intracranial atherosclerosis visualized. IMPRESSION: 1. No acute intracranial hemorrhage. 2. Soft tissue swelling/hematoma of the right parietal scalp. 3. Hypodensity is identified within the anterior right temporal lobe, likely contributed by artifact, although edema/infarction cannot be excluded. If further evaluation is clinically indicated, an MRI of the brain is recommended. 4. A nonacute lacunar infarct is visualized within the left thalamus. 5. There are scattered foci/areas of white matter hypodensity, likely representing small vessel ischemic disease. 6. Mild atrophy. 7. Additional findings described above.
--- NOTE | 2022-08-08 21:41 | HMH.EDGENADL ---
Discharge Plan Disposition Patient Disposition: Home, Self-Care Condition: Good Prescriptions Prescriptions: No Action vit C-vitamin D3-herb no.313 250 mg-3.75 mcg -212.5 mg capsule PO Xarelto 2.5 mg tablet See Rx Instructions .ROUTE .COMPLEX Qty: 180 1RF Dose Instruction: Take 1 tablet by mouth twice daily Rx Instructions: Take 1 tablet by mouth twice daily atenolol 100 MG tablet 100 mg PO DIRECTED Rx Instructions: PT STATES SHE TAKES 100MG IN AM, AND 50MG IN THE EVENING. multivitamin 1 EACH tablet 1 each PO DAILY aspirin 81 MG tablet,chewable 81 mg PO DAILY atorvastatin 40 MG tablet 40 mg PO HS Referrals Follow up/Referrals: Deanne Sanon MD [Primary Care Provider] - See instructions Activity Restrictions/Add. Instructions Additional Instructions/Restrictions: Follow-up with your family doctor within 72 hours to ensure improvement symptoms. Careful monitoring over the next 24 to 48 hours will be important, delayed bleeds are uncommon, but happen. Look for symptoms of confusion, numbness/weakness/tingling anywhere in your body, vision changes, extreme sleepiness, or other changes from patient's baseline. Return to the ED if you have any other concerning signs or symptoms. Clinical Impressions Clinical Impression: Closed head injury Discharge ED Provider: Logan Morales General Adult HPI General Chief complaint: Head Injury Stated complaint: ao 08/08@2030 fell hit head on concreate Time Seen by Provider: 08/08/22 21:00 Mode of Arrival: Ambulatory Source of Information: Patient Limitations: No Limitations Description of Symptoms (Recalled from ER Triage Doc. by RN): pt fell off stair and hit back of the head on the concrete the pt states that she is on xerelto does have a goose egg on the top of the right side of her head. pt states no LOC no vison changes History of Present Illness HPI narrative: This is a 81-year-old female with history of ACS, tobacco use, hypertension, PAD status post lower extremity stenting on Xarelto who is presenting with fall from standing. Patient states that she was walking up steps when she lost her footing and fell backwards striking the right side of her posterior head. Did not lose consciousness. Denies vision changes, neurologic deficits, confusion, headache, nausea, vomiting, neck or back pain, or any other concerns. It was a mechanical fall, denies feelings of dizziness, lightheadedness, or any other findings. Related Data Home Medications Medication Instructions Recorded Confirmed atenolol 100 mg tablet 100 mg PO DIRECTED High blood 02/15/20 06/11/21 pressure multivitamin 1 each PO DAILY Supplement 02/15/20 06/11/21 aspirin 81 mg chewable tablet 81 mg PO DAILY Blood thinner 06/01/20 06/11/21 atorvastatin 40 mg tablet 40 mg PO HS Heartburn 06/01/20 06/11/21 vitamin C 250 mg-vitamin D3 3.75 cap PO 06/11/21 06/11/21 mcg-herbal complex 212.5 mg capsule Previous Rx's Medication Instructions Recorded rivaroxaban 2.5 mg tablet (Xarelto) See Rx Instructions .Route 07/08/22 .COMPLEX #180 tabs Allergies Allergy/AdvReac Type Severity Reaction Status Date / Time No Known Allergies Allergy Verified 06/11/21 14:29 [facility] Disclaimer: The information contained in this section may have been updated after the patient was seen, as this information can be updated by other users. Social History Smoking Status: Current every day smoker tobacco type: cigarettes packs per day: 1 alcohol intake: current current occupational status: retired Travel in the last 8 weeks: Inside the [place] caffeine: No ROS Obtained: Yes All systems reviewed & no additional complaints except as documented Physical Exam General General appearance: alert and in no apparent distress Head Head exam: normocephalic, normal inspection and other (Traumatic hematoma overlying occipitoparietal scalp withou
--- NOTE | 2022-08-08 21:59 | PC.NURSE ---
Dr. Morales speaking with [facility]
[2022-08-08 22:25] VITALS: BP 180/88; PULSE 91; RESP 18; TEMP 36.6; O2SAT 99
== END 2022-08-08 22:28 | disposition home or self-care (01) ==
PROVIDERS: Emergency Provider Emergency Medicine; PCP Family Medicine
DX: S09.90XA Unspecified injury of head, initial encounter (principal); I10 Essential (primary) hypertension; I24.9 Acute ischemic heart disease, unspecified; I73.9 Peripheral vascular disease, unspecified; F17.210 Nicotine dependence, cigarettes, uncomplicated; Z79.01 Long term (current) use of anticoagulants; Z79.82 Long term (current) use of aspirin; Z79.899 Other long term (current) drug therapy; Z95.5 Presence of coronary angioplasty implant and graft; W10.9XXA Fall (on) (from) unspecified stairs and steps, initial encounter
CPT/HCPCS: 70450; 99285

== ENCOUNTER 2023-08-16 16:35 | Emergency (ER) | payer MEDICARE, OTHER, SELFPAY ==
[2023-08-16] VITALS (10 sets, daily range): BP systolic 142–174; BP diastolic 69–90; PULSE 68–92; RESP 18–25; TEMP 36.4–36.7; O2SAT 64–100; BMI 17.4
--- NOTE | 2023-08-16 16:45 | ECG_ITS ---
APPROVED REPORT Exam: Resting ECG HR:82 bpm ECG Measurements Heart Rate 82 AXES QRSd 116 QRS 98 QT 383 T 50 QTc 422 Conclusion ATRIAL FIBRILLATION BORDERLINE RIGHT AXIS DEVIATION [QRS AXIS > 90] PATTERN CONSISTENT WITH PULMONARY DISEASE MODERATE INTRAVENTRICULAR CONDUCTION DELAY [110+ ms QRS DURATION] ABNORMAL ECG UNCONFIRMED REPORT Electronically signed by : Iglesia Silva MD 08/17/2023 07:33:51
--- NOTE | 2023-08-16 16:52 | XR_ITS ---
PROCEDURE INFORMATION: Exam: XR Chest Exam date and time: 08/16/2023 4:55 PM Age: 82 years old Clinical indication: Shortness of breath; Additional info: SOA, decreased L lung sounds TECHNIQUE: Imaging protocol: Radiologic exam of the chest. Views: 1 view. COMPARISON: CR XR CHEST 2V 04/16/2021 3:30 PM FINDINGS: Tubes, catheters and devices: EKG leads. Lungs: Right lung clear. Left lung atelectasis. Pleural spaces: Very large left pneumothorax. Heart/Mediastinum: Unremarkable. No cardiomegaly. Vasculature: Atherosclerosis. Bones/joints: Degenerative changes of the spine. Thoracolumbar junction region spinal dextrocurvature. IMPRESSION: Very large left pneumothorax.
--- NOTE | 2023-08-16 16:57 | HMH.EDCP ---
Discharge Plan Disposition Patient Disposition: Home, Self-Care Chief Complaint: Shortness of Breath/Dyspnea Prescriptions Prescriptions: No Action multivitamin Tablet 1 tab PO DAILY cholecalciferol (vitamin D3) 10 mcg (400 unit) capsule 10 mcg PO DAILY atenolol 100 mg tablet 50 mg PO TID 90 Days Qty: 135 0RF aspirin 81 mg tablet,chewable 81 mg PO DAILY 90 Days Qty: 90 1RF atorvastatin 40 mg tablet 40 mg PO HS 90 Days Qty: 90 1RF clopidogrel 75 mg tablet 75 mg PO DAILY 90 Days Qty: 90 1RF citalopram 20 mg tablet 20 mg PO DAILY 90 Days Qty: 90 1RF hydroxyzine HCl 25 mg tablet 25 mg PO Q8H PRN (Reason: anxiety) 90 Days Qty: 270 1RF multivitamin 1 EACH tablet 1 each PO DAILY Referrals Follow up/Referrals: Jennifer Faulkner APRN [Primary Care Provider] - See instructions Clinical Impressions Clinical Impression: Acute respiratory failure with hypoxia and hypercapnia, Elevated troponin Multiple fractures of ribs of left side Qualifiers: Encounter type: initial encounter Fracture type: closed Qualified Code(s): S22.42XA - Multiple fractures of ribs, left side, initial encounter for closed fracture Pneumothorax, traumatic Qualifiers: Encounter type: initial encounter Qualified Code(s): S27.0XXA - Traumatic pneumothorax, initial encounter Discharge ED Provider: Logan Morales HPI General Chief Complaint: Shortness of Breath/Dyspnea Stated Complaint: shortness of breath and rib pain Time Seen by Provider: 08/16/23 16:39 History of Present Illness HPI narrative: 82-year-old female history of hypertension, high blood, see, PAD on Plavix presenting with shortness of breath. Started 2 days ago when she fell. Landed on her left side. Has had difficulty breathing since that time. Denies loss of consciousness or pain at this time. States that her hands look a little more blue than usual. No fevers or chills, productive cough, nausea or vomiting, or any other concerns. Related Data Home Medications Medication Instructions Recorded Confirmed multivitamin 1 each PO DAILY Supplement 02/15/20 07/04/23 cholecalciferol (vitamin D3) 10 10 mcg PO DAILY 07/04/23 07/04/23 mcg (400 unit) capsule multivitamin 1 tab PO DAILY 07/04/23 07/04/23 Previous Rx's Medication Instructions Recorded aspirin 81 mg chewable tablet 81 mg PO DAILY Blood thinner 90 07/04/23 days #90 tabs atenolol 100 mg tablet 50 mg PO TID High blood pressure 07/04/23 90 days #135 tabs atorvastatin 40 mg tablet 40 mg PO HS Heartburn 90 days #90 07/04/23 tabs citalopram 20 mg tablet 20 mg PO DAILY 90 days #90 tabs 07/04/23 clopidogrel 75 mg tablet 75 mg PO DAILY 90 days #90 tabs 07/04/23 hydroxyzine HCl 25 mg tablet 25 mg PO Q8H PRN anxiety 90 days 07/04/23 #270 tabs Allergies Allergy/AdvReac Type Severity Reaction Status Date / Time acetaminophen [From Lortab] Allergy Intermediate Hives Verified 07/04/23 13:57 hydrocodone [From Lortab] Allergy Intermediate Hives Verified 07/04/23 13:57 PFSH PFSH Disclaimer: The information contained in this section may have been updated after the patient was seen, as this information can be updated by other users. Medical History (Updated 08/16/23 @ 19:12 by Logan Morales MD) Breast cancer Surgical History (Updated 07/04/23 @ 13:59 by Whit Carranza CMA) H/O knee surgery History of hysterectomy Hx of cholecystectomy Social History Smoking Status: Current every day smoker tobacco type: cigarettes packs per day: 1 alcohol intake: current current occupational status: retired Travel in the last 8 weeks: Inside the [place] caffeine: No ROS Obtained: Yes All systems reviewed & no additional complaints except as documented Physical Exam General General appearance: alert and in distress (resp) Neck Neck exam: Present normal inspection, full ROM and trachea midli
--- NOTE | 2023-08-16 17:00 | PC.NURSE ---
XR AT BEDSIDE
--- NOTE | 2023-08-16 17:00 | PC.NURSE ---
rad at bedside
[2023-08-16 17:04] LABS: Basophils # 0.1 K/mm3 (0-0.2); Basophils % 0.3 % (0.1-2.0); Eosinophils % 0.2 % (0.1-12.0); Hematocrit 51.7 % (37.0-47.0); Hemoglobin 16.9 g/dL (12.2-16.2); Lymphocytes # 1.3 K/mm3 (0.7-4.5); Lymphocytes % 5.7 % (10-50); Mean Corpuscular HGB Conc 32.6 g/dL (31.8-35.4); Mean Corpuscular Hemoglobin 33.9 pg (27.0-31.2); Mean Corpuscular Volume 104.1 fl (81-99); Mean Platelet Volume 7.6 fl (7.4-10.4); Monocytes # 1.1 K/mm3 (0.1-1.0); Monocytes % 4.9 % (1.7-9.3); Neutrophils # 20.1 K/mm3 (1.8-7.8); Neutrophils % 88.8 % (37.0-80.0); Platelet Count 399 K/mm3 (142-424); Red Blood Count 4.96 M/mm3 (4.20-5.40); Red Cell Distribution Width 12.8 % (11.5-17.5); White Blood Count 22.6 K/mm3 (4.8-10.8)
[2023-08-16 17:05] LABS: MANUAL DIFFERENTIAL MANUAL DIFFERENTIAL (MANUAL DIFF)
[2023-08-16 17:05] LABS: VBG Base Excess -6.1 mmol/L (-2.4-2.3); VBG HCO3 22.7 mmol/L (23-30); VBG PO2 35.5 mmol/L (28-40); VBG Total CO2 24.7 mmol/L (23-27)
[2023-08-16 17:07] LABS: VBG PCO2 66.1 mmol/L (35-51); VBG PH 7.15 mmol/L (7.31-7.41)
[2023-08-16 17:08] LABS: Chloride 93 mmol/L (98-107); Potassium 4.9 mmoL/L (3.5-5.1); Sodium 131 mmol/L (136-145)
[2023-08-16 17:10] LABS: Alanine Aminotransferase 67 U/L (12-78); Aspartate Amino Transferase 78 U/L (14-36); Blood Urea Nitrogen 31 mg/dl (7-17); Estimated Glomerular Filt Rate 81 ml/min (>60); GFR (African American) 97 ML/MIN (>60)
[2023-08-16 17:11] LABS: Albumin Level 4.8 g/dl (3.5-5.0); Albumin/Globulin Ratio 1.5 (1.1-1.8); Alkaline Phosphatase 106 U/L (38-126); Anion Gap 16.9 mEq/L (5-15); Bilirubin,Total 0.7 mg/dl (0.2-1.3); Calcium 8.9 mg/dl (8.4-10.2); Carbon Dioxide 26 mmol/L (22.0-30.0); Globulin 3.3 g/dL (1.3-3.2); Glucose 236 mg/dl (74-100); Total Protein,Serum 8.1 g/dl (6.3-8.2)
[2023-08-16 17:17] LABS: Lactic Acid 4.6 mmol/L (0.7-2.1)
--- NOTE | 2023-08-16 17:19 | PC.NURSE ---
Dr Morales spoke with dhara
[2023-08-16 17:23] LABS: Lymphocytes % 11 % (10-50); Macrocytosis 1+; Monocytes % 3 % (2-9); Neutrophils % 86 % (42-76); Platelet Estimate Normal; Total Cells Counted 100
--- NOTE | 2023-08-16 18:08 | PC.NURSE ---
Dr Morales and RNs at bedside for Chest tube placement
--- NOTE | 2023-08-16 18:35 | XR_ITS ---
PROCEDURE INFORMATION: Exam: XR Chest Exam date and time: 08/16/2023 6:35 PM Age: 82 years old Clinical indication: Device placement; Chest tube; Additional info: CT placement TECHNIQUE: Imaging protocol: Radiologic exam of the chest. Views: 1 view. COMPARISON: CR XR CHEST PORTABLE 08/16/2023 4:55 PM FINDINGS: Tubes, catheters and devices: Placement of left pleural pigtail catheter at the mid to upper chest. Lungs: Unremarkable. No consolidation. Pleural spaces: Small residual left pneumothorax. Heart/Mediastinum: Unremarkable. No cardiomegaly. Vasculature: Atherosclerosis. Bones/joints: Osteopenia. Degenerative changes of the spine. Thoracolumbar junction region spinal dextrocurvature. Intraperitoneal space: Right upper quadrant clips. IMPRESSION: 1. Placement of left pleural pigtail catheter at the mid to upper chest. 2. Small residual left pneumothorax.
--- NOTE | 2023-08-16 18:51 | CT_ITS ---
PROCEDURE INFORMATION: Exam: CT Chest Without Contrast; Diagnostic Exam date and time: 08/16/2023 6:55 PM Age: 82 years old Clinical indication: Pain; Shortness of breath; Other: Pneumo; Additional info: Pneumo and ribs TECHNIQUE: Imaging protocol: Diagnostic computed tomography of the chest without contrast. Radiation optimization: All CT scans at this facility use at least one of these dose optimization techniques: automated exposure control; mA and/or kV adjustment per patient size (includes targeted exams where dose is matched to clinical indication); or iterative reconstruction. REPORTING DATA: Count of CT and Cardiac NM exams in prior 12 months: This patient has received 0 known CTs and 0 known cardiac nuclear medicine studies in the 12 months prior to the current study. COMPARISON: 1. CR XR CHEST PORTABLE 08/16/2023 6:35 PM 2. CR XR CHEST PORTABLE 08/16/2023 4:55 PM 3. CR XR CHEST 2V 04/16/2021 3:30 PM FINDINGS: Tubes, catheters and devices: Left chest pigtail catheter in place. Lungs: Calcified granuloma at the left lung base. There are scattered areas of emphysema throughout the lungs. Scattered areas of bronchial wall thickening which are likely chronic inflammatory. A few areas of subpleural reticulation are noted, nonspecific. Pleural spaces: Trace left anterior and apical pneumothorax. Heart: The heart size is within normal limits, and the pericardium appears clear with no signs of pericardial effusion or thickening. Coronary arteries: There is moderate coronary atherosclerotic disease/calcification although evaluation is limited secondary to the non gated nature of the study. Mediastinal space: The mediastinum appears unremarkable with no evidence of masses, lymphadenopathy, or mediastinal widening. Hilar structures including the major bronchi and vessels appear intact. Lymph nodes: Unremarkable. No enlarged lymph nodes. Vasculature: Partially visualized endograft repair of the aorta. There is atherosclerotic disease of the visualized aorta and its major branch vessels. Gallbladder and bile ducts: The patient is status post cholecystectomy. Bones/joints: There is diffuse degenerative disease of the visualized osseous structures. Soft tissues: Subcutaneous emphysema over the anterior left chest wall. Other findings: Motion artifact mildly limits evaluation. IMPRESSION: Left-sided pigtail catheter with a tiny residual pneumothorax.
--- NOTE | 2023-08-16 18:51 | PC.NURSE ---
Dr. Morales s/w Dr. Downs for consult.
--- NOTE | 2023-08-16 19:00 | PC.NURSE ---
placed call to [facility] for trauma surgeon for transfer
--- NOTE | 2023-08-16 19:02 | PC.NURSE ---
Dr Morales speaking with Dr Alicea
--- NOTE | 2023-08-16 19:29 | PC.NURSE ---
Gave report to Humaira Kerr ER Charge Nurse
--- NOTE | 2023-08-16 19:39 | PC.NURSE ---
called EMS spoke to Kyle about tx to . He advised other truck was out on a transfer to [place] and when they get back they will come up
[2023-08-16 20:55] LABS: Reflex Lactic Add Lactic Reflex
--- NOTE | 2023-08-19 06:27 | PC.NURSE ---
Addendum entered by Brittney Osorio RN 08/19/23 10:22: aware, no further action at this time needed Original Note: received call of positive blood cultures on the prelim result. phoned [employer], spoke with ICU, faxed a copy to [phone]
== END 2023-08-16 21:06 | disposition home or self-care (01) ==
PROVIDERS: Emergency Provider Emergency Medicine; PCP Nurse Practitioner Family
DX: J96.01 Acute respiratory failure with hypoxia (principal); J96.02 Acute respiratory failure with hypercapnia; S27.0XXA Traumatic pneumothorax, initial encounter; R77.8 Other specified abnormalities of plasma proteins; S22.42XA Multiple fractures of ribs, left side, initial encounter for closed fracture; I10 Essential (primary) hypertension; I73.9 Peripheral vascular disease, unspecified; F17.210 Nicotine dependence, cigarettes, uncomplicated; Z79.02 Long term (current) use of antithrombotics/antiplatelets; W19.XXXA Unspecified fall, initial encounter
CPT/HCPCS: 32551; 71045; 71250; 80053; 82803; 83605; 84484; 85007; 85025; 87040; 93005; 96361; 96365; 96366; 96367; 96375; 99291; J3370

== ENCOUNTER 2023-11-13 12:55 | Outpatient (CLI) | payer MEDICARE, OTHER, SELFPAY ==
--- NOTE | 2023-11-13 12:57 | CA_ITS ---
FINAL REPORT TECHNIQUE: Axial and color Doppler waveform evaluation of the left and right upper extremity was performed. Spectral analysis was performed. CLINICAL HISTORY: PAD, HTN, HLD, current smoker, cold hands with discoloration bilaterally. COMPARISON: None FINDINGS: Right upper extremity Velocities cm/sec: Subcla: 85 Axil A: 52 Brach A P: 61 Brach A M: 46 Brach A D: 25 Rad A P: 35 Rad A M: 32 Rad A D: 34 Uln A P: 40 Uln A M: 30 Uln A D: 32 Waveforms are biphasic. Left upper extremity Velocities cm/sec: Subcla: 79 Axil A: 66 Brach A P: 49 Brach A M: 61 Brach A D: 58 Rad A P: 66 Rad A M: 50 Rad A D: 44 Uln A P: 46 Uln A M: 52 Uln A D: 35 Waveforms are biphasic. IMPRESSION: No evidence of significant peripheral vascular disease. Reviewed, Interpreted and Dictated by Ramesh Ortega III, MD Transcribed by Maira Curtis Authenticated and [facility][1]
--- NOTE | 2023-11-13 12:57 | CA_ITS ---
FINAL REPORT CLINICAL HISTORY: PAD, history of peripheral stents 20+ years ago, current smoker, HTN, HLD, cold hands and feet, bilateral claudication. COMPARISON: None FINDINGS: BILATERAL LOWER EXTREMITY DUPLEX DOPPLER Color Doppler and duplex Doppler of the bilateral lower extremity was performed. Spectral analysis was also performed. Velocities were measured at multiple levels. All velocities are in centimeters per second. RIGHT AUTO HAULER: 159 Prof A: 45 SFA Prox: 99 SFA Mid: 208 SFA Distal: 96 EMERGENCY ROOM NURSE: 46 Per A Dist: 35 Waveforms are biphasic throughout. Some waveforms are suboptimal. LEFT AUTO HAULER: 430 Prof A: 134 SFA Prox: 71 SFA Mid: 96 SFA Distal: 75 EMERGENCY ROOM NURSE: 44 Per A Dist: 16 Waveforms are monophasic. Findings consistent with inflow disease. IMPRESSION: Biphasic waveforms on the right and monophasic waveforms on the left. Findings consistent with inflow disease on the left. This could be further evaluated with CTA or catheter angiogram. Reviewed, Interpreted and Dictated by Ramesh Ortega III, MD Transcribed by Maira Curtis Authenticated and [facility]
== END 2023-11-13 23:59 ==
LOC: RT 12:57
PROVIDERS: PCP Nurse Practitioner Family; Visit Provider Nurse Practitioner Family
DX: I73.9 Peripheral vascular disease, unspecified (principal)
CPT/HCPCS: 93925; 93930

== ENCOUNTER 2023-12-17 12:31 | Outpatient (CLI) | payer MEDICARE, OTHER, SELFPAY ==
--- NOTE | 2023-12-17 12:31 | CT_ITS ---
FINAL REPORT CLINICAL HISTORY: PAD, Abn art duplex COMPARISON: None FINDINGS: Post contrast axial imaging of the aorta and bilateral lower extremity was obtained and reviewed. This study was performed with techniques to keep radiation doses as low as reasonably achievable (ALARA). Individualized dose reduction techniques using automated exposure control or adjustment of mA and/or kV according to the patient's size were employed. The origins of the celiac, SMA, and renal artery are outside the [id number]. There is dense calcification of the distal abdominal aorta. There appear to be vascular stents in the distal abdominal aorta. There are moderate vascular calcifications throughout the iliac vessels. A vascular stent is noted in the left external iliac system. Right: There is moderate calcification of the common femoral artery with approximately 50% stenosis. There are scattered calcifications throughout the superficial femoral artery with up to 50% stenosis at the adductor canal. The popliteal artery is patent. The trifurcation is patent with three-vessel runoff to the foot. Left: There is calcification of the common femoral artery with high-grade stenosis of 80 to 90%. The superficial femoral artery is occluded. There is constitution of the proximal left popliteal artery via multiple profunda collaterals. The popliteal artery is patent. The trifurcation is patent with three-vessel runoff to the foot. Review of the remaining abdomen and pelvis demonstrates incomplete visualization of the liver and spleen but the appearance is unremarkable. The pancreas is unremarkable. There is a probable left adrenal mass, incompletely visualized but measuring up to 3.3 cm. The kidneys are unremarkable. In the pelvis, there is relative lack of intra-abdominal fat. There are scattered diverticula throughout the sigmoid colon. The urinary bladder is decompressed. 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 50% stenosis right common femoral artery and right adductor canal. 3.3 cm partially visualized left adrenal mass favored to represent adenoma. Dedicated pre and postinfusion CT recommended. Reviewed, Interpreted and Dictated by Farhat Marcial MD Transcribed by Maira Curtis Authenticated and [facility]
[2023-12-17 13:12] LABS: Blood Urea Nitrogen 15 mg/dl (7-17); Estimated Glomerular Filt Rate 96 ml/min (>60); GFR (African American) 116 ML/MIN (>60)
[2023-12-17] MEDS: SODIUM CHLORIDE 0.9% 10ML SYR (RAD ONLY) 10 ML IV (13:48)
[2023-12-17] MEDS: 0.9 % SODIUM CHLORIDE 50 ML VIAL 100 ML IV (13:48)
[2023-12-17] MEDS: IOPAMIDOL-370 (76%);100ML BOTTLE 120 ML IV (13:48)
== END 2023-12-17 23:59 | disposition home or self-care (01) ==
LOC: RAD 12:31
PROVIDERS: PCP Nurse Practitioner Family; Visit Provider Nurse Practitioner Family
DX: I73.9 Peripheral vascular disease, unspecified (principal)
CPT/HCPCS: 36415; 73706; 82565; 84520; Q9967

== ENCOUNTER 2024-02-06 10:12 | Outpatient (CLI) | payer MEDICARE, OTHER, SELFPAY ==
--- NOTE | 2024-02-06 10:12 | CT_ITS ---
FINAL REPORT TECHNIQUE: Pre- and postcontrast images of the abdomen were performed by computed tomography. CLINICAL HISTORY: left adrenal mass COMPARISON: FINDINGS: The lung bases are clear. The liver is normal in size and attenuation. Patient is status postcholecystectomy. The spleen is unremarkable. There is a 3.4 cm cystic and solid left adrenal mass which demonstrates contrast-enhancement in appearance not consistent with atypical adenoma but is stable for 5 years. Findings represent a benign lesion such as atypical adenoma or other benign neoplasm. There are diffuse vascular calcifications. The pancreas is unremarkable. The kidneys enhance appropriately. Bilateral iliac stents are in place. IMPRESSION: 3.4 cm left adrenal mass, stable for 5 years consistent with benign lesion. Reviewed, Interpreted and Dictated by Ramesh Ortega III, MD Transcribed by Meghann Mc Authenticated and [facility]
[2024-02-06 10:36] LABS: Blood Urea Nitrogen 8 mg/dl (7-17); Estimated Glomerular Filt Rate 96 ml/min (>60); GFR (African American) 116 ML/MIN (>60)
== END 2024-02-06 23:59 | disposition home or self-care (01) ==
LOC: RAD 10:12
PROVIDERS: PCP Nurse Practitioner Family; Visit Provider Nurse Practitioner Family
DX: E27.8 Other specified disorders of adrenal gland (principal)
CPT/HCPCS: 36415; 74170; 82565; 84520; Q9967

== ENCOUNTER 2024-04-09 16:43 | Outpatient (CLI) | payer MEDICARE, OTHER, SELFPAY ==
[2024-04-09 17:02] LABS: Basophils % 0.6 % (0.1-2.0); Eosinophils # 0.1 K/mm3 (0.0-0.4); Eosinophils % 0.9 % (0.1-12.0); Hematocrit 51.1 % (37.0-47.0); Hemoglobin 16.3 g/dL (12.2-16.2); Lymphocytes # 1.4 K/mm3 (0.7-4.5); Lymphocytes % 20.5 % (10-50); Mean Corpuscular Hemoglobin 34.2 pg (27.0-31.2); Mean Corpuscular Volume 106.7 fl (81-99); Mean Platelet Volume 7.8 fl (7.4-10.4); Monocytes # 0.5 K/mm3 (0.1-1.0); Monocytes % 6.9 % (1.7-9.3); Neutrophils # 4.7 K/mm3 (1.8-7.8); Platelet Count 463 K/mm3 (142-424); Red Blood Count 4.79 M/mm3 (4.20-5.40); Red Cell Distribution Width 13.2 % (11.5-17.5); White Blood Count 6.6 K/mm3 (4.8-10.8)
[2024-04-09 17:25] LABS: Alanine Aminotransferase 26 U/L (12-78); Albumin Level 4.3 g/dl (3.5-5.0); Albumin/Globulin Ratio 1.7 (1.1-1.8); Alkaline Phosphatase 95 U/L (38-126); Anion Gap 8.4 mEq/L (5-15); Aspartate Amino Transferase 37 U/L (14-36); Bilirubin,Total 0.5 mg/dl (0.2-1.3); Blood Urea Nitrogen 12 mg/dl (7-17); Calcium 9.4 mg/dl (8.4-10.2); Carbon Dioxide 32 mmol/L (22.0-30.0); Chloride 99 mmol/L (98-107); Chol/HDL Ratio 1.8 (1-3.5); Cholesterol 133 mg/dl (140-200); Estimated Glomerular Filt Rate 118 ml/min (>60); GFR (African American) 143 ML/MIN (>60); Globulin 2.5 g/dL (1.3-3.2); Glucose 73 mg/dl (74-100); HDL Cholesterol 72 mg/dl (40-60); Potassium 4.4 mmoL/L (3.5-5.1); Sodium 135 mmol/L (136-145); Total Protein,Serum 6.8 g/dl (6.3-8.2); Triglycerides 83 mg/dl (30-150); VLDL Cholesterol 17 mg/dL (0-40)
[2024-04-09 18:34] LABS: Thyroid Stimulating Hormone 2.51 uIU/mL (0.465-4.68)
[2024-04-09 18:39] LABS: Ferritin 246 ng/ml (11.1-264)
== END 2024-04-09 23:59 | disposition home or self-care (01) ==
LOC: LAB.DROPOF 16:43
PROVIDERS: PCP Nurse Practitioner Family; Visit Provider Nurse Practitioner Family
DX: I10 Essential (primary) hypertension (principal); D64.9 Anemia, unspecified; R63.4 Abnormal weight loss; Z68.1 Body mass index [BMI] 19.9 or less, adult; F17.210 Nicotine dependence, cigarettes, uncomplicated
CPT/HCPCS: 80053; 80061; 82728; 84443; 85025

== ENCOUNTER 2024-05-14 13:10 | Outpatient (CLI) | payer MEDICARE, OTHER, SELFPAY ==
[2024-05-14 16:52] LABS: Basophils % 0.5 % (0.1-2.0); Eosinophils # 0.1 K/mm3 (0.0-0.4); Eosinophils % 0.8 % (0.1-12.0); Hematocrit 49.5 % (37.0-47.0); Hemoglobin 15.5 g/dL (12.2-16.2); Lymphocytes # 1.2 K/mm3 (0.7-4.5); Lymphocytes % 13.2 % (10-50); Mean Corpuscular HGB Conc 31.4 g/dL (31.8-35.4); Mean Corpuscular Hemoglobin 33.5 pg (27.0-31.2); Mean Corpuscular Volume 106.8 fl (81-99); Mean Platelet Volume 8.3 fl (7.4-10.4); Monocytes # 0.5 K/mm3 (0.1-1.0); Monocytes % 5.7 % (1.7-9.3); Neutrophils # 7.1 K/mm3 (1.8-7.8); Neutrophils % 79.8 % (37.0-80.0); Platelet Count 534 K/mm3 (142-424); Red Blood Count 4.63 M/mm3 (4.20-5.40); Red Cell Distribution Width 13.5 % (11.5-17.5); White Blood Count 8.9 K/mm3 (4.8-10.8)
== END 2024-05-14 23:59 | disposition home or self-care (01) ==
LOC: LAB.DROPOF 05-17 09:24
PROVIDERS: PCP Nurse Practitioner Family; Visit Provider Nurse Practitioner Family
DX: R79.89 Other specified abnormal findings of blood chemistry (principal)
CPT/HCPCS: 85025

== ENCOUNTER 2024-06-03 14:10 | Outpatient (CLI) | payer MEDICARE, OTHER, SELFPAY ==
[2024-06-03 14:43] LABS: Basophils # 0.1 K/mm3 (0-0.2); Basophils % 1.1 % (0.1-2.0); Eosinophils # 0.1 K/mm3 (0.0-0.4); Eosinophils % 0.6 % (0.1-12.0); Hemoglobin 16.3 g/dL (12.2-16.2); Lymphocytes % 9.1 % (10-50); Mean Corpuscular HGB Conc 32.5 g/dL (31.8-35.4); Mean Corpuscular Hemoglobin 33.9 pg (27.0-31.2); Mean Corpuscular Volume 104.2 fl (81-99); Mean Platelet Volume 6.2 fl (7.4-10.4); Monocytes # 0.4 K/mm3 (0.1-1.0); Monocytes % 3.7 % (1.7-9.3); Neutrophils # 9.4 K/mm3 (1.8-7.8); Neutrophils % 85.5 % (37.0-80.0); Platelet Count 445 K/mm3 (142-424); Red Cell Distribution Width 13.3 % (11.5-17.5)
[2024-06-03 14:48] LABS: MANUAL DIFFERENTIAL MANUAL DIFFERENTIAL (MANUAL DIFF)
[2024-06-03 15:17] LABS: Iron 176 ug/dL (37-170)
[2024-06-03 15:27] LABS: Total Iron Binding Capacity 261 ug/dL (265-497)
[2024-06-03 16:04] LABS: Vitamin B12 653 pg/mL (239-931)
[2024-06-03 16:43] LABS: Anisocytosis 1+; Eosinophils % 1 % (0-3); Lymphocytes % 12 % (10-50); Macrocytosis 1+; Monocytes % 5 % (2-9); Neutrophils % 82 % (42-76); Platelet Estimate Normal; Total Cells Counted 100
[2024-06-05 14:26] LABS: Peripheral Smear Review Scanned Result
== END 2024-06-03 23:59 | disposition home or self-care (01) ==
LOC: LAB 14:12
PROVIDERS: PCP Nurse Practitioner Family; Visit Provider Internal Medicine Medical Oncology
DX: D75.839 Thrombocytosis, unspecified (principal)
CPT/HCPCS: 36415; 82607; 82746; 83540; 83550; 85007; 85025; 85027

== ENCOUNTER 2024-11-19 13:49 | Outpatient (CLI) | payer MEDICARE, OTHER, SELFPAY ==
[2024-11-19 14:18] LABS: Basophils # 0.1 K/mm3 (0-0.2); Basophils % 0.6 % (0.1-2.0); Eosinophils % 0.3 % (0.1-12.0); Hematocrit 47.3 % (37.0-47.0); Hemoglobin 16.6 g/dL (12.2-16.2); Lymphocytes # 1.2 K/mm3 (0.7-4.5); Lymphocytes % 11.9 % (10-50); Mean Corpuscular HGB Conc 35.1 g/dL (31.8-35.4); Mean Corpuscular Hemoglobin 33.7 pg (27.0-31.2); Mean Corpuscular Volume 95.9 fl (81-99); Mean Platelet Volume 8.2 fl (7.4-10.4); Monocytes # 0.6 K/mm3 (0.1-1.0); Monocytes % 5.7 % (1.7-9.3); Neutrophils # 8.3 K/mm3 (1.8-7.8); Neutrophils % 81.1 % (37.0-80.0); Platelet Count 389 K/mm3 (142-424); Red Blood Count 4.93 M/mm3 (4.20-5.40); Red Cell Distribution Width 13.3 % (11.5-17.5); White Blood Count 10.3 K/mm3 (4.8-10.8)
[2024-11-19 14:43] LABS: Alanine Aminotransferase 29 U/L (12-78); Albumin Level 4.7 g/dl (3.5-5.0); Alkaline Phosphatase 92 U/L (38-126); Anion Gap 9.3 mEq/L (5-15); Aspartate Amino Transferase 38 U/L (14-36); Bilirubin,Total 0.6 mg/dl (0.2-1.3); Blood Urea Nitrogen 11 mg/dl (7-17); Calcium 9.5 mg/dl (8.4-10.2); Carbon Dioxide 30 mmol/L (22.0-30.0); Chloride 98 mmol/L (98-107); Estimated Glomerular Filt Rate 118 ml/min (>60); GFR (African American) 143 ML/MIN (>60); Globulin 2.3 g/dL (1.3-3.2); Glucose 113 mg/dl (74-100); Potassium 4.3 mmoL/L (3.5-5.1); Sodium 133 mmol/L (136-145)
[2024-11-19 15:21] LABS: Ferritin 279 ng/ml (11.1-264)
[2024-11-19 16:08] LABS: Iron 267 ug/dL (37-170)
[2024-11-19 16:16] LABS: Total Iron Binding Capacity 264 ug/dL (265-497)
== END 2024-11-19 23:59 | disposition home or self-care (01) ==
LOC: LAB 13:50
PROVIDERS: PCP Nurse Practitioner Family; Visit Provider Internal Medicine Medical Oncology
DX: D75.839 Thrombocytosis, unspecified (principal)
CPT/HCPCS: 36415; 80053; 82728; 83540; 83550; 85025

== ENCOUNTER 2025-02-02 23:17 | Inpatient (IN) | payer MEDICARE, OTHER, SELFPAY ==
[2025-02-02 23:18] VITALS: BP 112/73; PULSE 86; RESP 26; TEMP 36.2; O2SAT 93; BMI 15.5
--- NOTE | 2025-02-02 23:27 | ECG_ITS ---
APPROVED REPORT Exam: Resting ECG HR:86 bpm ECG Measurements Heart Rate 86 AXES OR 161 P 85 QRSd 129 QRS 92 QT 379 T 78 QTc 422 Conclusion SINUS RHYTHM BORDERLINE RIGHT AXIS DEVIATION [QRS AXIS > 90] MODERATE INTRAVENTRICULAR CONDUCTION DELAY [110+ ms QRS DURATION] MINIMAL ST DEPRESSION [0.025+ mV ST DEPRESSION] No STEMI Electronically signed by : NOLA MATAMOROS, 02/03/2025 06:40:35
--- NOTE | 2025-02-02 23:39 | XR_ITS ---
PROCEDURE INFORMATION: Exam: XR Chest Exam date and time: 02/03/2025 12:06 AM Age: 84 years old Clinical indication: Shortness of breath TECHNIQUE: Imaging protocol: Radiologic exam of the chest. Views: 1 view. COMPARISON: CT CHEST WO CON 08/16/2023 6:55 PM FINDINGS: Lungs: Unremarkable. No consolidation. Pleural spaces: Unremarkable. No pleural effusion. No pneumothorax. Heart/Mediastinum: Unremarkable. No cardiomegaly. Bones/joints: Unremarkable. IMPRESSION: No acute findings.
[2025-02-02 23:58] LABS: Coronavirus 19, PCR Not Detected (NotDetected); Influenza A, PCR Not Detected (NotDetected); Influenza B, PCR Not Detected (NotDetected)
[2025-02-02 23:59] LABS: Basophils # 0.1 K/mm3 (0-0.2); Basophils % 0.6 % (0.1-2.0); Eosinophils # 0.3 Kmm3 (0.0-0.4); Eosinophils % 1.3 % (0.1-12.0); Hematocrit 46.3 % (37.0-47.0); Hemoglobin 15.8 g/dL (12.2-16.2); Immature Granulocytes # 0.09 10^3uL; Immature Granulocytes % 0.5 %; Lymphocytes # 0.7 K/mm3 (0.7-4.5); Lymphocytes % 3.4 % (10-50); Mean Corpuscular HGB Conc 34.1 g/dL (31.8-35.4); Mean Corpuscular Hemoglobin 33.8 pg (27.0-31.2); Mean Corpuscular Volume 99.1 fl (81-99); Mean Platelet Volume 8.6 fl (7.4-10.4); Monocytes # 1.6 K/mm3 (0.1-1.0); Monocytes % 8.3 % (1.7-9.3); Neutrophils # 16.4 K/mm3 (1.8-7.8); Neutrophils % 85.9 % (37.0-80.0); Nucleated Red Blood Cells # 0 10^3/uL; Nucleated Red Blood Cells % 0 %; Platelet Count 385 K/mm3 (142-424); Red Blood Count 4.67 M/mm3 (4.20-5.40); Red Cell Distribution Width 13.1 % (11.5-17.5); Red Cell Distribution Width-SD 47.7 fL; White Blood Count 19.1 K/mm3 (4.8-10.8)
[2025-02-03] VITALS (31 sets, daily range): BP systolic 112–185; BP diastolic 51–124; PULSE 66–92; RESP 15–28; TEMP 36.4–37.4; O2SAT 90–99; BMI 16.6; BMI 16.5
[2025-02-03 00:02] LABS: MANUAL DIFFERENTIAL MANUAL DIFFERENTIAL (MANUAL DIFF)
[2025-02-03 00:07] LABS: VBG HCO3 25.5 mmol/L (23-30); VBG Oxygen Saturation 65.9 % (50-70); VBG PO2 35.3 mmol/L (28-40); VBG Total CO2 27.7 mmol/L (23-27)
[2025-02-03 00:15] LABS: Lactate Venous 4.7 mmol/L (0.4-2.0); VBG PCO2 71.3 mmol/L (35-51); VBG PH 7.17 mmol/L (7.31-7.41)
--- NOTE | 2025-02-03 00:15 | PC.NURSE ---
Received critical VBG results from RT. MD sergio Arshad.
[2025-02-03 00:21] LABS: Alanine Aminotransferase 34 U/L (12-78); Albumin Level 4.5 g/dl (3.5-5.0); Albumin/Globulin Ratio 1.5 (1.1-1.8); Alkaline Phosphatase 105 U/L (38-126); Anion Gap 16.5 mEq/L (5-15); Aspartate Amino Transferase 59 U/L (14-36); Blood Urea Nitrogen 17 mg/dl (7-17); Calcium 9.2 mg/dl (8.4-10.2); Carbon Dioxide 26 mmol/L (22.0-30.0); Chloride 92 mmol/L (98-107); Creatinine Clearance Estimated 30 mL/min (50-200); Estimated Glomerular Filt Rate 153 ml/min (>60); GFR (African American) 185 ML/MIN (>60); Glucose 207 mg/dl (74-100); Potassium 5.5 mmoL/L (3.5-5.1); Sodium 129 mmol/L (136-145); Total Protein,Serum 7.5 g/dl (6.3-8.2)
[2025-02-03] MEDS: IPRATROPIUM/ALBUTEROL 3 ML NEB IH ×5 (00:24→22:25)
[2025-02-03 00:29] LABS: Lymphocytes % 6 % (10-50); Monocytes % 9 % (2-9); Neutrophils % 85 % (42-76); Total Cells Counted 100
[2025-02-03 00:33] LABS: Troponin I 0.03 ng/ml (0.00-0.034)
[2025-02-03] MEDS: IPRATROPIUM/ALBUTEROL 3 ML NEB 6 ML IH (00:44)
--- NOTE | 2025-02-03 01:03 | ED_ITS ---
Discharge Plan Disposition Patient Disposition: Admitted Condition: Serious Clinical Impressions Clinical Impression: COPD exacerbation, Sepsis, Hyponatremia, Hyperkalemia, Acute respiratory failure with hypoxia and hypercarbia, Acidosis, lactic Discharge ED Provider: Samantha Fisher General Chief Complaint: Shortness of Breath/Dyspnea Stated Complaint: SOA Time Seen by Provider: 02/03/25 00:22 Mode of Arrival: Ambulatory Source of Information: Patient Description of Symptoms (Recalled from ER Triage Doc. by RN): Pt presents for evaluation of shortness of breath x 2 days and has a wet cough History of Present Illness HPI narrative: 84-year-old female who reportedly has no history of COPD but has previously used Trelegy and smokes presents to the ER with cough, shortness of breath. Family is at bedside and helps provide history. Patient is reportedly been ill for the last 2 to 3 days but had reported the family she actually became sick about 3 days prior to that, in total about 5 to 7 days of illness including cough and congestion. Patient does not have a baseline oxygen requirement at home but was placed on nasal cannula in the ER. She has had a wet, productive cough. She has become progressively short of breath despite patient's family picking up an inhaler from the PCP today which did not offer improvement of symptoms. Reportedly no abdominal pain or diarrhea, no documented fevers, no headache, dizziness, or numbness, tingling, or focal weakness. Patient states she does not feel well. No chest pain. Related Data Previous Rx's ?Medication ?Instructions ?Recorded hydroxyzine HCl 25 mg tablet 25 mg PO Q8H PRN anxiety 90 days 07/04/23 #270 tabs fluticasone fur. 100 mcg-umeclid 1 inh inhalation VANNESSA Y 30 days #60 10/03/23 62.5 mcg-vilant 25 mcg ea inhalat.powder (Trelegy Ellipta) albuterol 90 mcg-budesonide 80 2 inh inhalation 6XD UT N Asthma 04/09/24 mcg/actuation HFA aerosol inhaler #5.9 grams (Airsupra) aspirin 81 mg tablet,delayed 81 mg PO DAILY #90 tabs 1 release (Adult Low Dose Aspirin) atorvastatin 40 mg tablet 40 mg PO HS Heartburn 90 day s #90 07/02/24 tabs clopidogrel 75 mg tablet See Rx Instructions .Route 0 12/27/24 .COMPLEX #90 tabs atenolol 100 mg tablet See Rx Instructions .Route 0 01/05/25 .COMPLEX #135 tabs citalopram 20 mg tablet See Rx Instructions .Route 0 01/05/25 .COMPLEX #90 tabs albuterol sulfate 90 mcg/actuation 2 puff inhalation Q 4-6H PRN 02/02/25 aerosol inhaler shortness of breath or wheez ing #8.5 grams Allergies Allergy/AdvReac Type Severity Reaction Status Date / Time acetaminophen (From Lortab) Allergy Intermediate Hives Verified 11/19/24 13:29 hydrocodone (From Lortab) Allergy Intermediate Hives Verified 11/19/24 13:29 [facility] Disclaimer: The information contained in this section may have been updated after the patient was seen, as this information can be updated by other users. Medical History Breast cancer Surgical History Hx of cholecystectomy History of hysterectomy H/O knee surgery Social History Smoking Status: Current every day smoker tobacco type: cigarettes packs per day: 1 alcohol intake: current alcohol intake frequency: holidays/special occasions only current occupational status: retired Travel in the last 8 weeks?: Inside the [place] caffeine: No Have you lived/traveled outside [place] in past 30 days?: No Contact w/someone who lives/traveled outside US past 30 days?: No Exposure to someone with infectious disease in past 14 days?: No Do you have a fever (greater than 100.4 F or 38 C)?: No Have you tested positive for COVID-19?: No Exposed to someone with COVID-19 in past 14 days?: No Do you have a sore throat?: No Do you have a cough?: No Do you have any weakness?: Yes Do you have any diarrhea?: No Are you experiencing any unusual bleeding?: No Do you have any muscle aches/pain?: No Do you have any abdominal pain?: No Are you experiencing loss of taste or smell?: No Other Medical History Have you received the Flu Vaccine for this season: Yes Have you received the Pneumonia Vaccine: No ROS Obtained: Yes Systems reviewed as appropriate & no additional complaints except as documented Per HPI Physical Exam General General appearance: alert Comment: Ill-appearing Head Head exam: atraumatic and normocephalic Eye Eye exam: Present PERRL and EOMI ENT ENT exam: Present mucous membranes moist Neck Neck exam: Present normal inspection and full ROM Chest Chest inspection: Present symmetric chest wall rise Respiratory Respiratory exam: Present respiratory distress (Mild), wheezes and prolonged expiratory phase; Absent normal lung sounds bilaterally (Breath sounds diminished throughout with scattered rhonchi) or stridor Cardiovascular Cardiovascular exam: Present regular rate and normal rhythm Abdominal Exam Abdominal exam: Present soft; Absent distention, tenderness, guarding or rebound Extremities Exam Extremities exam: Present full ROM; Absent edema Neurological Exam Neurological exam: Present alert and other (GCS 14); Absent oriented X3 (Oriented to self and location, disoriented to time) or motor sensory deficit Psychiatric Psychiatric exam: Present normal affect and normal mood Skin Skin exam: Present warm and dry HEART Score HEART Score HEART Score assessment performed?: Yes History (anamnesis): Slightly suspicious ECG: Non-specific disturbance Age: >65 years Risk factors: 1-2 risk factors Troponin: </= normal limit HEART Score: 4 Critical Care Critical Care Time Critical Care Time: Yes Attestation: On 02/02/25, the high probability of a clinically significant, sudden or life threatening deterioration of the following system(s) (respiratory) required my full and direct attention, intervention and personal management. The time I documented below is in addition to time spent performing reported procedures but includes the following listed in this critical care notation. Total Time Total Critical Care Time: 35 Medical Decision Making Medical Records Medical records reviewed: Yes I reviewed the patient's medical records. MR Comment: Last office visit with Diandra Faulkner from April 2024 was reviewed demonstrating patient was there for follow-up of hypertension and COPD. She was on Trelegy inhaler at that time. She also had albuterol inhaler at that time and was newly prescribed Airsupra. Anirudh Inquiry Pt receiving controlled substance: No Vital Signs Vital Signs: 02/02/25 23:18 02/03/25 00:03 02/03/25 00:32 Temperature 97.1 F L Temperature Source Temporal Artery Scan Pulse Rate 83 86 Pulse Rate [Right] 86 Respiratory Rate 26 H 23 21 Blood Pressure 162/75 H 185/91 H Blood Pressure [Right Arm] 112/73 Blood Pressure Mean [Right Arm] 86 Blood Pressure Source [Right Arm] Automatic Cuff Blood Pressure Position [Right Arm] Sitting 02 Sat by Pulse Oximetry 93 L 95 98 Oxygen Delivery Method Room Air 02/03/25 01:01 Temperature Temperature Source Pulse Rate 84 Pulse Rate [Right] Respiratory Rate 19 Blood Pressure 112/94 H Blood Pressure [Right Arm] Blood Pressure Mean [Right Arm] Blood Pressure Source [Right Arm] Blood Pressure Position [Right Arm] 02 Sat by Pulse Oximetry 98 Oxygen Delivery Method Lab Data Labs: Lab Results 02/02/25 23:51: WBC 19.1 H, RBC 4.67, Hgb 15.8, Hct 46.3, MCV 99.1 H, MCH 33.8 H , MCHC 34.1, RDW 13.1, Plt Count 385, MPV 8.6, Neut % (Auto) 85.9 H, Lymph % (Auto) 3.4 L, [place] % (Auto) 8.3, Eos % (Auto) 1.3, Baso % (Auto) 0.6, Neut # (Auto) 16.4 H, Lymph # (Auto) 0.7, [place] # (Auto) 1.6 H, Eos # (Auto) 0.3, Baso # (Auto) 0.1, Total Counted 100, Neutrophils % (Manual) 85 H, Lymphocytes % (Manual) 6 L, Monocytes % (Manual) 9, Sodium 129 L, Potassium 5.5 H, Chloride 92 L, Carbon Dioxide 26, Anion Gap 16.5 H, BUN 17, Creatinine 0.40 L, Estimated Creat Clear 30, Estimated GFR 153, Est GFR ( Amer) 185, Glucose 207 H, Calcium 9.2, Total Bilirubin 1.0, AST 59 H, ALT 34, Alkaline Phosphatase 105, Troponin I 0.03, Total Protein 7.5, Albumin 4.5, Globulin 3.0, Albumin/Globulin Ratio 1.5, SARS-CoV-2 (PCR) Not detected, Influenza A Untype (PCR) Not detected, Influenza Type B (PCR) Not detected 02/03/25 00:00: VBG pH 7.17 L, VBG pCO2 71.3 H, VBG pO2 35.3, VBG HCO3 25.5, VBG Total CO2 27.7 H, VBG O2 Saturation 65.9, VBG Base Excess -3.0 L, VBG Lactic Acid 4.7 H 02/02/25 23:51 02/02/25 23:51 Response Orders (Tests/Meds): ED MEDICATIONS Generic Name Dose Route Start Last Admin Trade Name Aakashq PRN Reason Stop Dose Admin Albuterol/Ipratropium 3 ml 02/03/25 06:00 Ipratropium/Albuterol 3 Ml [facility] 03/05/25 05:59 Q6RT [facility] Azithromycin 250 mg 02/03/25 09:00 Azithromycin 250mg Tablet PO 02/13/25 08:59 DAILY ALIZA Budesonide 0.5 mg 02/03/25 06:00 Budesonide 0.5mg/2ml Neb 03/05/25 05:59 BIDRT [facility] Enoxaparin Sodium 40 mg 02/03/25 09:00 Enoxaparin 40mg/0.4ml Syringe SUBCUT 03/05/25 08:59 DAILY [facility] Guaifenesin 600 mg 02/03/25 09:00 Guaifenesin 600 Mg Tab.Er.12h PO 03/05/25 08:59 BID ALIZA Lactated Ringer's 1,310 mls @ 655 mls/hr 02/03/25 00:30 02/03/25 01:08 Lactated Ringer's 1000 Ml Bag 30 ml/kg infuse over 2 hr (1310 ml) 02/03/25 02:29 655 mls/hr IV Administration .Q2H ONE Ceftriaxone Sodium 1 gm/ 50 mls @ 100 mls/hr 02/03/25 00:30 02/03/25 01:05 Sodium Chloride IV 02/13/25 00:29 100 mls/hr Q24H ALIZA Administration Ceftriaxone Sodium 1 gm/ 50 mls @ 100 mls/hr 02/03/25 09:00 Sodium Chloride IV 02/13/25 08:59 Q24H ALIZA Sodium Chloride 1,000 mls @ 100 mls/hr 02/03/25 01:15 Sod Chlor 0.9% 1000ml Bag IV 03/05/25 01:14 .Q10H ALIZA Methylprednisolone Sodium Succinate 40 mg 02/03/25 01:15 Methylprednisolone Sod Succ 40mg Vial IV 03/05/25 09:00 Q12H ALIZA Montelukast Sodium 10 mg 02/03/25 21:00 Montelukast Sodium 10mg Tab PO 03/05/25 20:59 HS ALIZA Nicotine 21 mg 02/03/25 01:13 Nicotine 21mg/24hr Patch TD 03/05/25 01:12 DAILYP PRN Nicotine Cravings Ondansetron HCl 4 mg 02/03/25 01:13 Ondansetron 4mg/2ml Vial IV 03/05/25 01:12 Q8HP PRN Nausea Sodium Chloride 10 ml 02/03/25 01:13 Sodium Chloride 0.9% 10ml Flush Syringe IV 03/05/25 01:12 NEEDED PRN Maintain IV Site Discontinued Medications Generic Name Dose Route Start Last Admin Trade Name Freq PRN Reason Stop Dose Admin Albuterol/Ipratropium 3 ml 02/02/25 23:39 02/03/25 00:24 Ipratropium/Albuterol 3 Ml [facility] 02/02/25 23:40 3 ml ONCE ONE Administration Albuterol/Ipratropium 6 ml 02/03/25 00:30 02/03/25 00:44 Ipratropium/Albuterol 3 Ml [facility] 02/03/25 00:31 6 ml ONCE ONE Administration Azithromycin 500 mg 02/03/25 00:30 02/03/25 01:07 Azithromycin 250mg Tablet PO 02/03/25 00:31 500 mg ONCE ONE Administration Methylprednisolone Sodium Succinate 125 mg 02/03/25 00:30 02/03/25 01:05 Methylprednisolone Sod Succ 125mg Vial IV 02/03/25 00:31 125 mg ONCE ONE Administration ORDERS Category Date Time Status XR chest portable Stat Exams 02/02/25 23:39 Completed Complete Blood Count Auto Diff Stat Lab 02/02/25 23:51 Completed Comprehensive Metabolic Panel Stat Lab 02/02/25 23:51 Completed Rapid PCR Covid and Flu A/B Stat Lab 02/02/25 23:51 Completed Troponin I Q3H Lab 02/03/25 02:45 Ordered Troponin I Q3H Lab 02/03/25 05:45 Ordered Troponin I Stat Lab 02/02/25 23:51 Completed Urinalysis and Microscopic Stat Lab 02/03/25 00:32 Ordered Blood Culture Stat Micro 02/03/25 01:00 Received Venous Blood Gas Stat RT 02/03/25 00:00 Completed Tissue Perfus/Sepsis Re-Eval Sepsis Re-Evaluation Performed: Yes Date Performed: 02/03/25 Time Performed: 01:37 MDM Narrative Medical Decision Narrative: In summary, this 84 year old female with comorbidities described in the HPI not at goal therapy presents to the emergency department today with shortness of breath, productive cough. On initial evaluation patient is hemodynamically stable, afebrile, mild respiratory distress with new nasal cannula requirement, prolonged expiratory phase, wheezes, rhonchi throughout, GCS 14 with slight confusion but no localizing neurologic deficits. Differential diagnosis includes but is not limited to ACS, pneumonia, COPD exacerbation, hypercarbia, lactic acidosis, electrolyte abnormality, sepsis, viral syndrome, among others. Based on these concerns, I ordered serum labs, cardiac workup, chest x-ray, VBG. ECG personally interpreted demonstrates sinus rhythm, rate 86, borderline right axis deviation, normal UT and QTc, no STEMI. Patient received DuoNeb initially for treatment. Labs personally reviewed demonstrate leukocytosis WBC 19.1, no anemia, normal platelets, CMP with hyponatremia and hyperkalemia but no hyperacute changes appreciated on ECG, initial troponin 0.03, repeat troponin pending. VBG notable for respiratory and metabolic acidosis with pH 7.17, elevated pCO2, elevated lactic. With findings of elevated lactic, significant leukocytosis in the setting of suspected respiratory infection and new oxygen requirement meet criteria for sepsis. Patient was started on sepsis fluid bolus and appropriate broad-spectrum antibiotics for suspected respiratory infection after blood cultures were drawn. Patient was also placed on BiPAP and is receiving additional DuoNebs and IV steroids for COPD exacerbation. Chest x-ray personally interpreted does not demonstrate lobar infiltrate, see radiology read for final interpretation. On reassessment patient is tolerating BiPAP, she is resting comfortably at this time. I had extensive discussion with patient's family at bedside to indicate that she should be DNR, okay to intubate. I spent time counseling and educating them about sepsis, COPD exacerbation, etc. They were agreeable to my recommendation for admission. I discussed this case with the hospitalist and patient was accepted for admission in serious but improving condition.
[2025-02-03] MEDS: METHYLPREDNISOLONE SOD SUCC 125MG VIAL 125 MG IV (01:05)
[2025-02-03] MEDS: CEFTRIAXONE 1 GM 1 GM in 0.9 % SODIUM CHLORIDE 50 ML IV ×2 (01:05→20:15)
[2025-02-03] MEDS: AZITHROMYCIN 250MG TABLET 500 MG PO (01:07)
[2025-02-03] MEDS: LACTATED RINGERS 655 ML IV (01:08)
--- NOTE | 2025-02-03 01:16 | P.HP_ITS ---
<Statement entered by Hussein Aparicio MD - 02/07/25 17:40> Personally evaluated the patient and agree with the plan of care as outlined by the BUILDING COORDINATOR. History of Present Illness *Admission Date: 02/03/25 *Reason for visit:: Shortness of air *History of present illness: This is an 84-year-old female who has a past medical history significant for breast cancer and heart tension who presents with a chief complaint of shortness of breath. Due to patient's symptoms, patient presented to the emergency room for evaluation. While in emergency room, chest x-ray per my read shows chronic changes-is pending final read by radiologist. Patient had an elevated white blood cell count, elevated lactic acid, and her pCO2 was 71. Patient was placed on the BiPAP and hospital medicine was consulted for further management. During my evaluation of the patient, patient was resting comfortably on the BiPAP. The majority of information was obtained from family member at the bedside. Family at the bedside states patient has had a 2-4-day history of shortness of air that has progressively gotten worse. She mentions that patient has a 50-year pack and 1/2-day smoking history. Review of ER documentation shows family voiced patient's prior use of Trelegy-family member did not discuss this with me. Family member did state that she has noticed patient complaining of being feverish when she normally states that she is cold by nature. Patient herself endorses shortness of air with some wheezing. It is also worth mentioning that patient is normally not dependent on supplemental oxygen. Recently, she was evaluated by her primary care physician who prescribed her an inhaler which did not improve her symptomology. Patient is currently denying any chest pain, lightheadedness, dizziness, PND, orthopnea, nausea, vomiting, or diarrhea. Additional pertinent vitals obtained include a pH of 7.17, PCO2 of 71.3, white blood cell count of 19.1, neutrophils 85.9%, venous lactic acid of 4.7, sodium 129, potassium of 5.5, chloride of 92, blood glucose of 207, and AST of 59. [facility] Disclaimer: The information contained in this section may have been updated after the patient was seen, as this information can be updated by other users. Medical History Breast cancer Surgical History Hx of cholecystectomy History of hysterectomy H/O knee surgery Social History Smoking Status: Current every day smoker tobacco type: cigarettes packs per day: 1 alcohol intake: current alcohol intake frequency: holidays/special occasions only current occupational status: retired Travel in the last 8 weeks?: Inside the [place] caffeine: No Have you lived/traveled outside US in past 30 days?: No Contact w/someone who lives/traveled outside US past 30 days?: No Exposure to someone with infectious disease in past 14 days?: No Do you have a fever (greater than 100.4 F or 38 C)?: No Have you tested positive for COVID-19?: No Exposed to someone with COVID-19 in past 14 days?: No Do you have a sore throat?: No Do you have a cough?: No Do you have any weakness?: Yes Do you have any diarrhea?: No Are you experiencing any unusual bleeding?: No Do you have any muscle aches/pain?: No Do you have any abdominal pain?: No Are you experiencing loss of taste or smell?: No Other Medical History Have you received the Flu Vaccine for this season: Yes Have you received the Pneumonia Vaccine: No Review of Systems Review of Systems Review of systems:: pertinent systems reviewed and negative unless documented below Constitutional Constitutional: Reports chills Eyes Eyes: Reports system reviewed and no additional complaints, except as documented ENT Ears, Nose, Mouth, and Throat: Reports system reviewed and no additional complaints, except as documented *Cardiovascular Cardiovascular: Reports system reviewed and no additional complaints, except as documented and Reports dyspnea *Respiratory Respiratory: Reports cough, Reports dyspnea and Reports wheezing *Gastrointestinal Gastrointestinal: Reports system reviewed and no additional complaints, except as documented *Genitourinary Genitourinary: Reports system reviewed and no additional complaints, except as documented *Musculoskeletal Musculoskeletal: Reports system reviewed and no additional complaints, except as documented Integumentary/Breasts Skin/Breast: Reports system reviewed and no additional complaints, except as documented *Neurologic Neurologic: Reports system reviewed and no additional complaints, except as documented Psychiatric Psychiatric: Reports system reviewed and no additional complaints, except as documented Endocrine Endocrine: Reports system reviewed and no additional complaints, except as documented Hematologic/Lymphatic Hematologic/Lymphatic: Reports system reviewed and no additional complaints, except as documented Allergic/Immunologic Allergic/Immunologic: Reports system reviewed and no additional complaints, except as documented and Reports wheezing Meds Home Medications and Allergies Home Medications ?Medication ?Instructions ?Recorded ?Confirmed ?Type hydroxyzine HCl 25 mg tablet 25 mg PO Q8H PRN anxiety 90 days 07/04/23 02/03/25 Rx #270 tabs fluticasone fur. 100 mcg-umeclid 1 inh inhalation VANNESSA Y 30 days #60 10/03/23 02/03/25 Rx 62.5 mcg-vilant 25 mcg ea inhalat.powder (Trelegy Ellipta) albuterol 90 mcg-budesonide 80 2 inh inhalation 6XD RI N Asthma 04/09/24 02/03/25 Rx mcg/actuation HFA aerosol inhaler #5.9 grams (Airsupra) aspirin 81 mg tablet,delayed 81 mg PO DAILY #90 tabs 1 02/03/25 Rx release (Adult Low Dose Aspirin) atorvastatin 40 mg tablet 40 mg PO HS Heartburn 90 day s #90 07/02/24 02/03/25 Rx tabs clopidogrel 75 mg tablet See Rx Instructions .Route 0 12/27/24 02/03/25 Rx .COMPLEX #90 tabs atenolol 100 mg tablet See Rx Instructions .Route 0 01/05/25 02/03/25 Rx .COMPLEX #135 tabs citalopram 20 mg tablet See Rx Instructions .Route 0 01/05/25 02/03/25 Rx .COMPLEX #90 tabs albuterol sulfate 90 mcg/actuation 2 puff inhalation Q 4-6H PRN 02/02/25 02/03/25 Rx aerosol inhaler shortness of breath or wheez ing #8.5 grams New Prescriptions to Start Prescriptions: Allergies Allergy/AdvReac Type Severity Reaction Status Date / Time acetaminophen (From Lortab) Allergy Intermediate Hives Verified 11/19/24 13:29 hydrocodone (From Lortab) Allergy Intermediate Hives Verified 11/19/24 13:29 Exam Data for Last 24 hours Vital signs and Labs for Last 24 Hours: Temp Pulse Resp BP Pulse Ox O2 Del Method 97.1 F L 84 19 112/94 H 98 Room Air 02/02/25 23:18 02/03/25 01:01 02/03/25 01:01 02/03/25 01:01 02/03/25 01:01 02/02/25 23:18 Laboratory Results - last 24 hr 02/02/25 23:51: WBC 19.1 H, RBC 4.67, Hgb 15.8, Hct 46.3, MCV 99.1 H, MCH 33.8 H , MCHC 34.1, RDW 13.1, Plt Count 385, MPV 8.6, Neut % (Auto) 85.9 H, Lymph % (Auto) 3.4 L, [place] % (Auto) 8.3, Eos % (Auto) 1.3, Baso % (Auto) 0.6, Neut # (Auto) 16.4 H, Lymph # (Auto) 0.7, [place] # (Auto) 1.6 H, Eos # (Auto) 0.3, Baso # (Auto) 0.1, Total Counted 100, Neutrophils % (Manual) 85 H, Lymphocytes % (Manual) 6 L, Monocytes % (Manual) 9, Sodium 129 L, Potassium 5.5 H, Chloride 92 L, Carbon Dioxide 26, Anion Gap 16.5 H, BUN 17, Creatinine 0.40 L, Estimated Creat Clear 30, Estimated GFR 153, Est GFR ( Amer) 185, Glucose 207 H, Calcium 9.2, Total Bilirubin 1.0, AST 59 H, ALT 34, Alkaline Phosphatase 105, Troponin I 0.03, Total Protein 7.5, Albumin 4.5, Globulin 3.0, Albumin/Globulin Ratio 1.5 02/03/25 00:00: VBG pH 7.17 L, VBG pCO2 71.3 H, VBG pO2 35.3, VBG HCO3 25.5, VBG Total CO2 27.7 H, VBG O2 Saturation 65.9, VBG Base Excess -3.0 L, VBG Lactic Acid 4.7 H I & O for Last 24 hours: Intake & Output 01/31/25 02/01/25 02/02/25 02/03/25 23:59 23:59 23:59 23:59 Weight 43.545 kg Constitutional Constitutional: mild distress and thin *Routine HEENT Exam Head: Present normocephalic and atraumatic Eye: Present EOMI and PERRL ENT: Present mucous membranes moist *Routine Neck Exam Neck: Present supple, full ROM and trachea midline *Routine Respiratory Exam Respiratory: Present decreased breath sounds, respiratory distress, wheezes and diminished air movement *Routine Cardiovascular Exam Cardiovascular: Present RRR, Normal S1 and Normal S2 *Routine Abdominal Exam Abdominal: Present soft and normoactive bowel sounds *Routine Rectal Exam Rectal:: deferred *Routine Genitalia Exam Genitalia:: deferred *Routine Extremities Exam Extremities: Present full ROM and pulses intact Routine Back/Spine/Pelvis Exam Back/Spine: Present full ROM *Routine Skin Exam Skin: Present dry, warm and normal turgor *Routine Neurological Exam Neurological: Present alert, oriented X3, CN II-XII intact and normal speech Routine Psychiatric Exam Psychiatric: Present normal affect, normal thought process, cooperative, good insight and good judgment H&P: Result Impressions This is an 84-year-old female who presents with shortness of air has no formal diagnosis of COPD however was prescribed Trelegy in the past for home usage Assessment and Plan *Assessment and plan (1) Acute respiratory failure with hypoxia and hypercarbia: Status: Acute Category: Medical Code(s): J96.01 - Acute respiratory failure with hypoxia; J96.02 - Acute respiratory failure with hypercapnia (2) Acidosis, lactic: Status: Acute Category: Medical Code(s): E87.20 - Acidosis, unspecified (3) Hyperkalemia: Status: Acute Category: Medical Code(s): E87.5 - Hyperkalemia (4) Hyponatremia: Status: Acute Category: Medical Code(s): E87.1 - Hypo-osmolality and hyponatremia (5) COPD exacerbation: Status: Acute Category: Medical Code(s): J44.1 - Chronic obstructive pulmonary disease with (acute) exacerbation (6) Hyperglycemia: Status: Acute Category: Medical Code(s): R73.9 - Hyperglycemia, unspecified (7) Leukocytosis: Status: Acute Qualifiers: Leukocytosis type: unspecified Qualified Code(s): D72.829 - Elevated white blood cell count, unspecified Category: Medical Code(s): D72.829 - Elevated white blood cell count, unspecified Plan Assessment: Acute hypoxic hypercapnic respiratory failure COPD exacerbation - Will continue BiPAP with an inspiratory pressure of 16 and expiratory pressure of 8 and a rate of 20 - Will repeat venous blood gas in 2 hours - Will give IV Solu-Medrol 40 mg IV twice daily - DuoNebs every 6 hours - 0.5 mg of budesonide twice daily - 600 mg of Mucinex p.o. twice daily - 10 mg of Singulair p.o. daily - Patient may benefit from painter tumbling barrel consultation - Patient does have a 50-year pack a and 1/2-day smoking history; - Patient may benefit from pulmonary functions test as an outpatient for gold staging Lactic acidosis - Patient did receive fluid bolus challenge while in emergency room - Will continue normal saline at 100 mL an hour Hyperkalemia - Patient has mild elevation of potassium without any EKG changes - Will monitor for now - If serum potassium continues to rise, will give patient Jace cocktail Hyponatremia - Obtain urine sodium - Will monitor sodium daily Hyperglycemia - May be due to recent administration of exogenous steroids -Prior fasting studies have not been greater than 120 -Will obtain hemoglobin A1c Leukocytosis with left shift -Chest x-ray is currently without any findings consistent with pneumonia -Will obtain D-dimer and if elevated will perform CTA of the chest -More than likely this is reactive -Will continue 1 g Rocephin IV daily coupled with azithromycin 250 mg p.o. daily -Blood cultures x 2 -Obtain procalcitonin -Obtain mini respiratory panel Plan: Admit patient to the stepdown unit Vital signs every 2 hours Cardiac diet Urine Legionella was obtained CBC/BMP daily Repeat patient's venous lactic acid in a.m. Normal saline at 100 mL an hour 40 mg Lovenox subcu daily for DVT prophylax 21 mg nicotine patch daily 4 mg Zofran IV push every 8 hours pain nausea vomit Patient is a DNR but is amenable to intubation for short-term if needed Will repeat venous blood gas in 2 hours to ensure patient's pCO2 is improving I will discussed this case with attending physician Dr. Aparicio and I look forward to more input
--- NOTE | 2025-02-03 01:32 | PC.NURSE ---
care handoff to AMINA Harvey
[2025-02-03 03:01] LABS: VBG Base Excess -1.5 mmol/L (-2.4-2.3); VBG HCO3 25.3 mmol/L (23-30); VBG PH 7.28 mmol/L (7.31-7.41)
[2025-02-03 03:04] LABS: Lactate Venous 2.7 mmol/L (0.4-2.0); VBG PCO2 55.7 mmol/L (35-51)
[2025-02-03 03:10] LABS: Coronavirus 19, PCR Not Detected (NotDetected); Human Rhinovirus Not Detected (NotDetected); Influenza A, PCR Not Detected (NotDetected); Influenza B, PCR Not Detected (NotDetected); Respiratory Syncytial Virus Not Detected (NotDetected)
[2025-02-03 03:33] LABS: Troponin I 0.06 ng/ml (0.00-0.034)
[2025-02-03 04:14] LABS: Reflex Lactic Add Lactic Reflex
[2025-02-03 06:13] LABS: D-Dimer 0.84 ug/mL (0.0-0.5)
[2025-02-03 06:15] LABS: Chloride 95 mmol/L (98-107); Lactic Acid Follow Up (RFLX 1) 1.3 mmol/L (0.7-2.1)
[2025-02-03 06:16] LABS: Sodium 131 mmol/L (136-145)
[2025-02-03 06:19] LABS: Blood Urea Nitrogen 16 mg/dl (7-17); Calcium 8.9 mg/dl (8.4-10.2); Carbon Dioxide 31 mmol/L (22.0-30.0); Creatinine Clearance Estimated 32 mL/min (50-200); Estimated Glomerular Filt Rate 153 ml/min (>60); GFR (African American) 185 ML/MIN (>60); Glucose 155 mg/dl (74-100)
[2025-02-03 06:21] LABS: Hemoglobin A1C 5.4 % (4.0-6.0)
[2025-02-03 06:28] LABS: Troponin I 0.05 ng/ml (0.00-0.034)
[2025-02-03 06:31] LABS: Basophils # 0.1 K/mm3 (0-0.2); Basophils % 0.5 % (0.1-2.0); Eosinophils # 0.3 Kmm3 (0.0-0.4); Eosinophils % 1.5 % (0.1-12.0); Hematocrit 42.5 % (37.0-47.0); Hemoglobin 14.7 g/dL (12.2-16.2); Immature Granulocytes # 0.11 10^3uL; Immature Granulocytes % 0.6 %; Lymphocytes # 0.4 K/mm3 (0.7-4.5); Mean Corpuscular HGB Conc 34.6 g/dL (31.8-35.4); Mean Corpuscular Volume 98.4 fl (81-99); Mean Platelet Volume 9.4 fl (7.4-10.4); Monocytes # 1.4 K/mm3 (0.1-1.0); Neutrophils # 15.4 K/mm3 (1.8-7.8); Neutrophils % 87.4 % (37.0-80.0); Nucleated Red Blood Cells # 0 10^3/uL; Nucleated Red Blood Cells % 0 %; Platelet Count 332 K/mm3 (142-424); Red Blood Count 4.32 M/mm3 (4.20-5.40); Red Cell Distribution Width 12.9 % (11.5-17.5); Red Cell Distribution Width-SD 46.6 fL; White Blood Count 17.7 K/mm3 (4.8-10.8)
[2025-02-03] MEDS: BUDESONIDE 0.5MG/2ML NEB 0.5 MG IH ×2 (06:36→18:36)
[2025-02-03 07:57] LABS: Procalcitonin 0.087 ng/mL (0.0-2.0)
[2025-02-03] MEDS: METHYLPREDNISOLONE SOD SUCC 40MG VIAL 40 MG IV ×2 (08:48→20:15)
[2025-02-03] MEDS: ENOXAPARIN 40MG/0.4ML SYRINGE 40 MG SUBCUT (08:48)
[2025-02-03 09:18] LABS: Lactate Venous 1.1 mmol/L (0.4-2.0); VBG Base Excess 1.3 mmol/L (-2.4-2.3); VBG HCO3 27.5 mmol/L (23-30); VBG Oxygen Saturation 98.7 % (50-70); VBG PH 7.31 mmol/L (7.31-7.41); VBG PO2 121.2 mmol/L (28-40); VBG Total CO2 29.3 mmol/L (23-27)
[2025-02-03 09:23] LABS: VBG PCO2 55.7 mmol/L (35-51)
--- NOTE | 2025-02-03 12:15 | EXP.PULM.CON ---
History of Present Illness History of present illness: Ms. Leary is a 84-year-old female current smoker greater than [id number] smoking history, using ambulation therapies intermittently on as-needed basis presented today with worsening respiratory distress and pulmonary was called for further evaluation and management Patient blood gas upon admission showed hypercarbic respiratory failure needing noninvasive ventilatory therapy. [facility] Disclaimer: The information contained in this section may have been updated after the patient was seen, as this information can be updated by other users. Medical History Breast cancer Surgical History Hx of cholecystectomy History of hysterectomy H/O knee surgery Social History Smoking Status: Current every day smoker tobacco type: cigarettes packs per day: 1 alcohol intake: current alcohol intake frequency: holidays/special occasions only current occupational status: retired Travel in the last 8 weeks?: Inside the [place] caffeine: No Have you lived/traveled outside US in past 30 days?: No Contact w/someone who lives/traveled outside [place] past 30 days?: No Exposure to someone with infectious disease in past 14 days?: No Do you have a fever (greater than 100.4 F or 38 C)?: No Have you tested positive for COVID-19?: No Exposed to someone with COVID-19 in past 14 days?: No Do you have a sore throat?: No Do you have a cough?: No Do you have any weakness?: Yes Do you have any diarrhea?: No Are you experiencing any unusual bleeding?: No Do you have any muscle aches/pain?: No Do you have any abdominal pain?: No Are you experiencing loss of taste or smell?: No Review of Systems Review of Systems Review of systems:: pertinent systems reviewed and negative unless documented below Constitutional Constitutional: Reports chills Eyes Eyes: Reports system reviewed and no additional complaints, except as documented ENT Ears, Nose, Mouth, and Throat: Reports system reviewed and no additional complaints, except as documented *Cardiovascular Cardiovascular: Reports system reviewed and no additional complaints, except as documented and Reports dyspnea *Respiratory Respiratory: Reports chest congestion, Reports cough, Reports dyspnea, Denies excessive phlegm production, Denies hemoptysis, Denies pain on inspiration, Denies pain with cough and Reports wheezing *Gastrointestinal Gastrointestinal: Reports system reviewed and no additional complaints, except as documented *Genitourinary Genitourinary: Reports system reviewed and no additional complaints, except as documented *Musculoskeletal Musculoskeletal: Reports system reviewed and no additional complaints, except as documented Integumentary/Breasts Skin/Breast: Reports system reviewed and no additional complaints, except as documented *Neurologic Neurologic: Reports system reviewed and no additional complaints, except as documented Psychiatric Psychiatric: Reports system reviewed and no additional complaints, except as documented Endocrine Endocrine: Reports system reviewed and no additional complaints, except as documented Hematologic/Lymphatic Hematologic/Lymphatic: Reports system reviewed and no additional complaints, except as documented Allergic/Immunologic Allergic/Immunologic: Reports system reviewed and no additional complaints, except as documented and Reports wheezing Pulmonology Exam Inpatient Vital signs and Labs for Last 24 Hours: Temp Pulse Resp BP Pulse Ox O2 Del Method FiO2 97.5 F L 92 H 21 129/64 90 L BiPAP 35 02/03/25 02:00 02/03/25 11:36 02/03/25 10:00 02/03/25 10:00 02/03/25 11:36 02/03/25 11:36 02/03/25 11:36 Laboratory Results - last 24 hr 02/02/25 23:51: WBC 19.1 H, RBC 4.67, Hgb 15.8, Hct 46.3, MCV 99.1 H, MCH 33.8 H, MCHC 34.1, RDW 13.1, Plt Count 385, MPV 8.6, Neut % (Auto) 85.9 H, Lymph % (Auto) 3.4 L, [place] % (Auto) 8.3, Eos % (Auto) 1.3, Baso % (Auto) 0.6, Neut # (Auto) 16.4 H, Lymph # (Auto) 0.7, [place] # (Auto) 1.6 H, Eos # (Auto) 0.3, Baso # (Auto) 0.1, Total Counted 100, Neutrophils % (Manual) 85 H, Lymphocytes % (Manual) 6 L, Monocytes % (Manual) 9, Sodium 129 L, Potassium 5.5 H, Chloride 92 L, Carbon Dioxide 26, Anion Gap 16.5 H, BUN 17, Creatinine 0.40 L, Estimated Creat Clear 30, Estimated GFR 153, Est GFR ( Amer) 185, Glucose 207 H, Calcium 9.2, Total Bilirubin 1.0, AST 59 H, ALT 34, Alkaline Phosphatase 105, Troponin I 0.03, Total Protein 7.5, Albumin 4.5, Globulin 3.0, Albumin/Globulin Ratio 1.5, SARS-CoV-2 (PCR) Not detected, Influenza A Untype (PCR) Not detected, Influenza Type B (PCR) Not detected 02/03/25 00:00: VBG pH 7.17 L, VBG pCO2 71.3 H, VBG pO2 35.3, VBG HCO3 25.5, VBG Total CO2 27.7 H, VBG O2 Saturation 65.9, VBG Base Excess -3.0 L, VBG Lactic Acid 4.7 H 02/03/25 03:00: VBG pH 7.28 L, VBG pCO2 55.7 H, VBG pO2 68.0 H, VBG HCO3 25.3, VBG Total CO2 27.0, VBG O2 Saturation 94.0 H, VBG Base Excess -1.5, VBG Lactic Acid 2.7 H, Troponin I 0.06 H 02/03/25 03:03: SARS-CoV-2 (PCR) Not detected, Influenza Type A (PCR) Not detected, Influenza Type B (PCR) Not detected, RSV (PCR) Not detected, Rhinovirus (PCR) Not detected 02/03/25 05:26: WBC 17.7 H, RBC 4.32, Hgb 14.7, Hct 42.5, MCV 98.4, MCH 34.0 H, MCHC 34.6, RDW 12.9, Plt Count 332, MPV 9.4, Neut % (Auto) 87.4 H, Lymph % (Auto) 2.0 L, [place] % (Auto) 8.0, Eos % (Auto) 1.5, Baso % (Auto) 0.5, Neut # (Auto) 15.4 H, Lymph # (Auto) 0.4 L, [place] # (Auto) 1.4 H, Eos # (Auto) 0.3, Baso # (Auto) 0.1, D-Dimer 0.84 H, Sodium 131 L, Potassium 5.0, Chloride 95 L, Carbon Dioxide 31 H, Anion Gap 10.0, BUN 16, Creatinine 0.40 L, Estimated Creat Clear 32, Estimated GFR 153, Est GFR ( Amer) 185, Glucose 155 H D, Hemoglobin A1c 5.4, Lactate 1.3, Calcium 8.9, Troponin I 0.05 H, Procalcitonin 0.087 02/03/25 09:05: VBG pH 7.31, VBG pCO2 55.7 H, VBG pO2 121.2 H, VBG HCO3 27.5, VBG Total CO2 29.3 H, VBG O2 Saturation 98.7 H, VBG Base Excess 1.3, VBG Lactic Acid 1.1 I & O for Labs for Last 24 Hours: Intake & Output 01/31/25 02/01/25 02/02/25 02/03/25 23:59 23:59 23:59 23:59 Intake Total Balance Weight 96 lb 103 lb 1.6 oz Constitutional: Present moderate distress Head: Present normocephalic and atraumatic ENT: Present normal exam, normal oropharynx and mucous membranes moist Neck: Present normal inspection and full ROM Respiratory: Present prolonged expiratory phase, respiratory distress, wheezes, diminished air movement and able to speak in complete sentences Cardiac: Present S1/S2, Tachycardia and radial pulses present GI: Present soft and distention; Absent tenderness or guarding Rectal (female): Present deferred (female): Present deferred Skin: Present intact; Absent cyanosis or jaundice Neuro: Present alert, awake and oriented x 3 Extremities: Present normal inspection; Absent clubbing or cyanosis Psychiatric: Present normal affect and cooperative Meds Home Medications and Allergies Home Medications ?Medication ?Instructions ?Recorded ?Confirmed ?Type hydroxyzine HCl 25 mg tablet 25 mg PO Q8H PRN anxiety 90 days 07/04/23 02/03/25 Rx #270 tabs fluticasone fur. 100 mcg-umeclid 1 inh inhalation DAILY 30 days #60 10/03/23 02/03/25 Rx 62.5 mcg-vilant 25 mcg ea inhalat.powder (Trelegy Ellipta) albuterol 90 mcg-budesonide 80 2 inh inhalation 6XD PRN Asthma 04/09/24 02/03/25 Rx mcg/actuation HFA aerosol inhaler #5.9 grams (Airsupra) aspirin 81 mg tablet,delayed 81 mg PO DAILY #90 tabs 06/29/24 02/03/25 Rx release (Adult Low Dose Aspirin) albuterol sulfate 90 mcg/actuation 2 puff inhalation Q4-6H PRN 02/02/25 02/03/25 Rx aerosol inhaler shortness of breath or wheezing #8.5 grams atenolol 100 mg tablet 50 mg PO TID 02/03/25 02/03/25 History atorvastatin 40 mg tablet 40 mg PO HS 02/03/25 02/03/25 History citalopram 20 mg tablet 20 mg PO DAILY 02/03/25 02/03/25 History clopidogrel 75 mg tablet 75 mg PO DAILY 02/03/25 02/03/25 History New Prescriptions to Start Prescriptions: Allergies Allergy/AdvReac Type Severity Reaction Status Date / Time acetaminophen (From Lortab) Allergy Intermediate Hives Verified 11/19/24 13:29 hydrocodone (From Lortab) Allergy Intermediate Hives Verified 11/19/24 13:29 Results Laboratory Findings 02/03/25 05:26 02/03/25 05:26 PT/INR, D-dimer D-Dimer 0.84 ug/mL (0.0-0.5) H 02/03/25 05:26 Abnormal lab findings: Abnormal Labs 02/02/25 02/03/25 02/03/25 23:51 00:00 03:00 WBC 19.1 H MCV 99.1 H MCH 33.8 H Neut % (Auto) 85.9 H Lymph % (Auto) 3.4 L Neut # (Auto) 16.4 H Lymph # (Auto) [place] # (Auto) 1.6 H Neutrophils % (Manual) 85 H Lymphocytes % (Manual) 6 L D-Dimer VBG pH 7.17 L 7.28 L VBG pCO2 71.3 H 55.7 H VBG pO2 68.0 H VBG Total CO2 27.7 H VBG O2 Saturation 94.0 H VBG Base Excess -3.0 L VBG Lactic Acid 4.7 H 2.7 H Sodium 129 L Potassium 5.5 H Chloride 92 L Carbon Dioxide Anion Gap 16.5 H Creatinine 0.40 L Glucose 207 H AST 59 H Troponin I 0.06 H 02/03/25 02/03/25 05:26 09:05 WBC 17.7 H MCV MCH 34.0 H Neut % (Auto) 87.4 H Lymph % (Auto) 2.0 L Neut # (Auto) 15.4 H Lymph # (Auto) 0.4 L [place] # (Auto) 1.4 H Neutrophils % (Manual) Lymphocytes % (Manual) D-Dimer 0.84 H VBG pH VBG pCO2 55.7 H VBG pO2 121.2 H VBG Total CO2 29.3 H VBG O2 Saturation 98.7 H VBG Base Excess VBG Lactic Acid Sodium 131 L Potassium Chloride 95 L Carbon Dioxide 31 H Anion Gap Creatinine 0.40 L Glucose 155 H D AST Troponin I 0.05 H Assessment and Plan *Assessment and plan (1) Acute respiratory failure with hypoxia and hypercarbia: Status: Acute Category: Medical Code(s): J96.01 - Acute respiratory failure with hypoxia; J96.02 - Acute respiratory failure with hypercapnia (2) COPD exacerbation: Status: Acute Category: Medical Code(s): J44.1 - Chronic obstructive pulmonary disease with (acute) exacerbation Plan Ms. Leary is a 84-year-old female current smoker greater than [id number] smoking history, using ambulation therapies intermittently on as-needed basis presented today with worsening respiratory distress and pulmonary was called for further evaluation and management Patient blood gas upon admission showed hypercarbic respiratory failure needing noninvasive ventilatory therapy. Chest x-ray on admission no dense consolidative/airspace changes. Hyperinflated lungs. Afebrile. Hemodynamically stable. COVID-19 and flu PCR panel negative. Blood gas upon admission hypercarbic respiratory failure pH 7.17PCO 271.3. Improved the most recent prednisone 0.32, 53.7 Plan: DuoNebs every 4 hours along with Pulmicort every 12 scheduled Prednisone 40 mg daily Continue azithromycin. Discontinue ceftriaxone from pulmonary standpoint Continue nasal cannula oxygen supplementation to maintain O2 saturation goal of 90% and above. Resume NIV tonight
[2025-02-03 13:11] LABS: Lactate Venous 1.2 mmol/L (0.4-2.0); VBG Base Excess 1.1 mmol/L (-2.4-2.3); VBG HCO3 27.2 mmol/L (23-30); VBG Oxygen Saturation 98.9 % (50-70); VBG PH 7.32 mmol/L (7.31-7.41); VBG PO2 138.8 mmol/L (28-40); VBG Total CO2 28.8 mmol/L (23-27)
[2025-02-03 13:12] LABS: VBG PCO2 53.7 mmol/L (35-51)
[2025-02-03] MEDS: AZITHROMYCIN 250MG TABLET 250 MG PO (13:26)
--- NOTE | 2025-02-03 14:08 | PC.NURSE ---
Changed pt. to 4lpm nc. 02 sat was 95%. Pt. will be returned to bipap at bedtime per .
--- NOTE | 2025-02-03 14:29 | SW/DCPLANNER ---
Addendum entered by Yenni Pandya 02/07/25 09:27: Patient discharged to [facility] over the weekend 02/06 SNF Level of care. Original Note: I spoke w/ this patient regarding plans once medically stable for discharge. PT evaluated patient and recommended SNF level of care. Patient/daughter are agreeable to placement and prefer [facility]. I will fax [facility] information to [facility] today. I did inform patient/daughter regarding possibility of no bed availability and they requested additional time to come up w/ a second facility choice. CM will continue to follow up [facility], patient, family and MD. Discharge date is unknown at this time.
--- NOTE | 2025-02-03 14:36 | HMH.PTEV ---
Physical Therapy Evaluation Rehab PT IP Evaluation Start: 02/03/25 09:51 Freq: ONCE Status: Active Protocol: Document 02/03/25 11:18 KANWAL (Rec: 02/03/25 14:36 KANWAL [id number]) Subjective/History History History Per H&P: This is an 84-year-old female who has a past medical history significant for breast cancer and heart tension who presents with a chief complaint of shortness of breath. Due to patient's symptoms, patient presented to the emergency room for evaluation. While in emergency room, chest x-ray per my read shows chronic changes-is pending final read by radiologist. Patient had an elevated white blood cell count, elevated lactic acid, and her pCO2 was 71. Patient was placed on the BiPAP and hospital medicine was consulted for further management. During my evaluation of the patient, patient was resting comfortably on the BiPAP. The majority of information was obtained from family member at the bedside. Family at the bedside states patient has had a 2-4-day history of shortness of air that has progressively gotten worse. She mentions that patient has a 50-year pack and 1/2-day smoking history. Review of ER documentation shows family voiced patient's prior use of Trelegy-family member did not discuss this with me. Family member did state that she has noticed patient complaining of being feverish when she normally states that she is cold by nature. Patient herself endorses shortness of air with some wheezing. It is also worth mentioning that patient is normally not dependent on supplemental oxygen. Recently, she was evaluated by her primary care physician who prescribed her an inhaler which did not improve her symptomology. Patient is currently denying any chest pain, lightheadedness, dizziness, PND, orthopnea, nausea, vomiting, or diarrhea. Additional pertinent vitals obtained include a pH of 7.17, PCO2 of 71.3, white blood cell count of 19.1, neutrophils 85.9%, venous lactic acid of 4.7, sodium 129, potassium of 5.5 , chloride of 92, blood glucose of 207, and AST of 59. Subjective Subjective Family at bedside to provide hx. Pt lives with her grandson. Pt normally completely IND with mobility without AD use . Not driving. Lives in a single story home with [address] [place] [address] How much help from another person do you currently need... Turning from your A little back to your side while in a flat bed without using bedrails? Moving from lying on A little back to sitting on the side of a flat bed without using bedrails? Moving to and from a A little bed to a chair ( including a wheelchair)? Standing up from a A little chair using your arms? (e.g., wheelchair, bedside chair) Walking in hospital A lot room? Climbing 3-5 steps A lot with a railing? Mobility Score 16 Mobility Level [facility] Mobility 5 Stand (1 or more minutes) Mobility Calculator Rehab PT IP Eval Objective Appearance Patient Behavior Appropriate,Fatigued Difficulty following none instructions Speech Pattern Clear Ambulation Patient Able to No Ambulate Balance Ability to Arise Able, uses arms to help Sitting Balance Steady, safe Standing Balance Unsteady Transfers Bed Transfer Ability Supervision/Stand by Sit to Stand Bed Minimal x 1 (25% assist) Transfer Ability Rehab PT IP prob,goals,plan Problems Date of Evaluation: 02/03/25 PT IP Problems Bed Mobility,Transfers,Gait,Balance,Self care,Safety Rehab Potential Rehab Potential Good Plan PT Intervention Plan Bed Mobility,Transfers,Gait,Balance,Self care,Safety, Therapeutic Exercise Other Intervention 1-2 times Plan PT Plan Frequency Daily Duration LOS Discharge Goals Bed Transfer Ability Minimal x 1 (25% assist) Sit to Stand Chair Minimal x 1 (25% assist) Transfer Ability Discharge Plan PT Discharge Plan Initial physical therapy evaluation performed. Pt able to perform stand with Min A for steadying. Pt with impaired endurance. At this time, pt not safe to return home d/t current level of functional mobility. PT recommending short-term rehabilitation stay upon d/c from [facility]. Pt would benefit from skilled PT while at [facility] to prevent further functional decline and maximize safety with mobility. Eval Complexity Eval Charge Codes 34223 - Moderate Complexity PHYSICIAN CERTIFICATION: I certify the specified therapy services for April Leary are required, authorized, and reviewed every 30 days.
--- NOTE | 2025-02-03 14:49 | HMH.OTEV ---
OT Inpatient Evaluation Rehab OT IP Evaluation Start: 02/03/25 09:51 Freq: ONCE Status: Active Protocol: Document 02/03/25 14:34 ELFEGO (Rec: 02/03/25 14:49 ELFEGO [id number]) Rehab OT IP Assessment Subjective History PER HPI narrative: 84-year-old female who reportedly has no history of COPD but has previously used Trelegy and smokes presents to the ER with cough, shortness of breath. Family is at bedside and helps provide history. Patient is reportedly been ill for the last 2 to 3 days but had reported the family she actually became sick about 3 days prior to that, in total about 5 to 7 days of illness including cough and congestion. Patient does not have a baseline oxygen requirement at home but was placed on nasal cannula in the ER. She has had a wet, productive cough. She has become progressively short of breath despite patient's family picking up an inhaler from the PCP today which did not offer improvement of symptoms. Reportedly no abdominal pain or diarrhea, no documented fevers, no headache, dizziness, or numbness, tingling, or focal weakness. Patient states she does not feel well. No chest pain. Subjective I am gonna take a break. Pt was sitting on EOB when therapy entered room. Pt's daughter present for session. Pt agreed to participate in initial OT evaluation. Pt orient x3 with min cues for birthday. Pt's daughter able to help with background and hx. Pt lives with grandson with one step up to enter home. pt PLOF ind in ADL and reports can assist with IADLs, but reports back hurting and weakness during completion. Pt reports having a walker to use for functional mobility but does not use it often. Pt does not drive. pt reports having shower chair and potty chair in bedroom. Pt reports not being on O2 at home, currently on O2 at [facility]. Pt reports grandson works and can not be present 24/03. Pt agreed to complete a sit to stand transfer. Pt able to scoot to EOB with Min A. Pt able to complete sit to stand transfer with Mod A x2. Pt able to hold static sitting balance for less than 30 seconds with Mod A x2 before sitting back on EOB. Pt able to scoot back into bed with Min A. Pt left with call light and all other needs within reach. Therapy stated to daughter about skilled rehab placement if no one is present 24/, to which daughter reported she could be present if needed. Objective Patient Orientation Person,Place,Birthday Right Upper Min Limitation <25% Extremity Gross ROM Left Upper Extremity Min Limitation <25% Gross ROM Shoulder ROM Muscle Weakness Limitations Elbow ROM Muscle Weakness Limitations Bed Mobility bed mobility-scooting,bed mobility - supine/sit Assist Level Minimal x 1 (25% assist) Transfer Training Sit/Stand Transfer Assist Level Moderate x 1 (50% assist) Decrease in Yes Endurance Rehab OT IP prob,goals,plan Problems Date of Evaluation: 02/03/25 OT IP Problems Bed Mobility,Transfers,Balance,Self care,Safety Rehab Potential Rehab Potential Good Equipment Needs Assistive Devices Standard Walker Plan OT intervention Plan Bed Mobility,Transfers,Balance,Self care,Safety, Therapeutic Exercise OT Plan Frequency Daily Duration LOS Discharge Goals Bed Mobility Ability Standby Assistance Sit to Stand Chair Minimal x 1 (25% assist) Transfer Ability Feeding Ability Assist with Tray Set Up Commode/Toilet Sit to/from Ambulatory Transfer Technique Commode/Toilet Raised Toilet Seat,Toilet Rails,Grab Bars Transfer Assistive Devices Decrease in No Endurance Discharge Plan OT Discharge Plan At this time, pt would benefit from skilled acute OT services and interventions to address functional limitations in occupational performance. Once DC from [facility], it is strongly recommended pt would benefit from skilled rehab placement to further address functional limitations in occupational performance including ADLs, endurance, and safety. If family member can be present 24/7 to assist with pt and pt improves significantly while here at [facility], pt can be DC home with home health services- again with only 24/7 assist and significant improvements in occupational performance. Eval Complexity Eval Charge Codes 85474 - Moderate Complexity PHYSICIAN CERTIFICATION: I certify the specified therapy services for April Leary are required, authorized, and reviewed every 30 days.
[2025-02-03 15:13] LABS: Microscopic, Urine URINE MICROSCOPIC (MICROSCOPIC)
[2025-02-03 15:22] LABS: Appearance,Urine CLOUDY (Clear); Bilirubin,Urine Negative (Negative); Blood, Urine 2+ (Negative); Color,Urine YELLOW (Yellow); Glucose,Urine (UA) Negative (Negative); Ketones,Urine Negative (Negative); Leukocyte Esterase,Urine Negative (Negative); Nitrate,Urine POSITIVE (Negative); Protein,Urine 2+ (Negative); Urobilinogen,Urine 0.2 EU/dl (0.2)
[2025-02-03 15:24] LABS: Specific Gravity, Urine 1.023 (1.005-1.030)
[2025-02-03 16:13] LABS: Bacteria,Urine 4+ /lpf; WBC,Urine 20-50 #/hpf (0-3)
--- NOTE | 2025-02-03 16:27 | PC.NURSE ---
Patient has done better as the shift has progressed. She is more oriented. Lung sounds remain very wheezy with a non-productive cough although her couch sounds wet. She has been turning in the bed independently. She did not participate well with therapy this am but did better this afternoon. She was a 1 assist to the bedside commode. She is very fidgety. Doing well on 4L nasal cannula with sats 90-95%.
[2025-02-03] MEDS: MONTELUKAST SODIUM 10MG TAB 10 MG PO (20:15)
[2025-02-03] MEDS: guaiFENesin 600 MG TAB.ER.12H PO (20:15)
[2025-02-03 23:41] LABS: Sodium,Urine Random < 5.0 mmol/L (30-90)
[2025-02-04] VITALS (19 sets, daily range): BP systolic 125–174; BP diastolic 55–92; PULSE 77–130; RESP 16–22; TEMP 36.7–37.8; O2SAT 90–97; BMI 16.6
[2025-02-04] MEDS: IPRATROPIUM/ALBUTEROL 3 ML NEB IH ×2 (01:46→06:09)
[2025-02-04 06:07] LABS: Chloride 96 mmol/L (98-107); Sodium 129 mmol/L (136-145)
[2025-02-04 06:08] LABS: Potassium 4.4 mmoL/L (3.5-5.1)
[2025-02-04] MEDS: BUDESONIDE 0.5MG/2ML NEB 0.5 MG IH (06:09)
[2025-02-04 06:10] LABS: Blood Urea Nitrogen 20 mg/dl (7-17); Creatinine Clearance Estimated 32 mL/min (50-200); Estimated Glomerular Filt Rate 96 ml/min (>60); GFR (African American) 116 ML/MIN (>60)
[2025-02-04 06:11] LABS: Anion Gap 4.4 mEq/L (5-15); Calcium 9.1 mg/dl (8.4-10.2); Carbon Dioxide 33 mmol/L (22.0-30.0); Glucose 103 mg/dl (74-100)
[2025-02-04 06:15] LABS: Basophils # 0.1 K/mm3 (0-0.2); Basophils % 0.4 % (0.1-2.0); Eosinophils # 0.1 Kmm3 (0.0-0.4); Immature Granulocytes % 0.4 %; Monocytes # 1.5 K/mm3 (0.1-1.0); Neutrophils # 13.5 K/mm3 (1.8-7.8); Nucleated Red Blood Cells # 0 10^3/uL; Nucleated Red Blood Cells % 0 %; Red Cell Distribution Width 12.9 % (11.5-17.5)
[2025-02-04 06:31] LABS: Eosinophils % 0.3 % (0.1-12.0); Hematocrit 37.1 % (37.0-47.0); Immature Granulocytes # 0.07 10^3uL; Lymphocytes # 0.6 K/mm3 (0.7-4.5); Lymphocytes % 3.7 % (10-50); Mean Corpuscular HGB Conc 34.2 g/dL (31.8-35.4); Mean Corpuscular Hemoglobin 34.1 pg (27.0-31.2); Mean Corpuscular Volume 99.7 fl (81-99); Mean Platelet Volume 8.8 fl (7.4-10.4); Monocytes % 9.6 % (1.7-9.3); Neutrophils % 85.6 % (37.0-80.0); Platelet Count 353 K/mm3 (142-424); Red Blood Count 3.72 M/mm3 (4.20-5.40); Red Cell Distribution Width-SD 47.5 fL; White Blood Count 15.8 K/mm3 (4.8-10.8)
[2025-02-04 06:33] LABS: Hemoglobin 12.7 g/dL (12.2-16.2)
--- NOTE | 2025-02-04 06:49 | ECG_ITS ---
APPROVED REPORT Exam: Resting ECG HR:127 bpm ECG Measurements Heart Rate 127 AXES QRSd 86 QRS 89 QT 309 T 30 QTc 384 Conclusion ATRIAL FIBRILLATION WITH RAPID VENTRICULAR RESPONSE WITH ABERRANT CONDUCTION OR VENTRICULAR PREMATURE COMPLEXES NONSPECIFIC ST & T-WAVE ABNORMALITY ABNORMAL RHYTHM ECG UNCONFIRMED REPORT Electronically signed by : Iglesia Silva MD 02/07/2025 08:45:11
--- NOTE | 2025-02-04 06:53 | PC.NURSE ---
Nurse noticed patient rate change from NSR with a stable rate of 70-90's to after her breathing tx elevating up to the 150's looking irregular. No history noted for patient having afib, Nurse called RT to obtain EKG and pt was confirmed to be in afib. RT is switching breathing treatments to not affect heart rate with future treatments and garbage collection supervisor coverage MD bello was notified of change and ekg results. No orders given at this time, will relay to dayshift. Patient sitting up in bed on 2LNC with no complaints besides heart beating fast .
--- NOTE | 2025-02-04 07:53 | CA_ITS ---
APPROVED REPORT EXAM: Comprehensive 2D, Doppler, and color-flow Echocardiogram Process Area Supervisor: Ada Huber RVT Ht: 5 ft 6 in Wt: 103lbs BSA: 1.51 BP: 151/88 mmHg Indications: NSTEMI,A-FIB,SHORTNESS OF BREATH 2D Dimensions IVSd 1.33 cm F: 0.6-1.0 LVEF (Visual) 66.70 % PWd 0.66 cm F: 0.6 - 1.0 LVDd 3.18 cm F: 3.9 - 5.3 LVDs 2.04 cm F: 2.2 - 3.5 M-Mode Dimensions LA Diam 3.31 cm (1.9-4.0) LV Diastology E Decel Time 150 (160-240 msec) E/A Ratio 1.3 Aortic Valve DUSTIN Index 1.45 cm2/m2 AoV Peak Justin. 117.0 (50-130 cm/s) AO Peak GR. 5.50 mmHg AO Mean GR. 2.70 (<5 mmHg) AO VTI 23.6 (18-25 cm) DUSTIN (VTI) 2.24 (2.5-4.5 cm2) Mitral Valve MV E Max Justin. 70.0 (40-130 cm/s) MV A Velocity 52.0 (40-130 cm/s) E/A Ratio 1.34 MV PHT 44.0 ms Pulmonary Valve PV Peak Velocity 31.0 (50-150 cm/s) Tricuspid Valve TR P. Velocity 372.00 cm/s RAP Estimate 10.00 mmHg RVSP 65.30 mmHg Left Ventricle The left ventricle is normal size. The left ventricular systolic function is normal. The left ventricular ejection fraction is within the normal range. There is increased LV wall thickness. There is normal LV segmental wall motion. Grade 2 diastolic dysfunction is present. LVEF is 55%. Right Ventricle Right ventricle is mildly dilated. Right ventricle is mildly hypokinetic. Atria Left atrium is moderately dilated. Right atrium is moderately dilated. There is no Doppler evidence of interatrial shunt. Aortic Valve The aortic valve is mildly thickened. There is no aortic valvular stenosis. Trace aortic regurgitation. Mitral Valve The mitral valve is normal in structure. Trace mitral regurgitation. Tricuspid Valve Tricuspid valve is grossly normal in structure and function. Moderate tricuspid regurgitation. RVSP is 50-55 mmHg. Pulmonic Valve The pulmonary valve is normal in structure. Trace pulmonic regurgitation. Great Vessels The aortic root is normal in size. IVC is normal in size and collapses >50% with inspiration. Pericardium There is no pericardial effusion. Other Information Study Quality: Fair Conclusion Normal LV systolic function. Grade 2 diastolic dysfunction. Mild RV dilation with mild reduction in RV function. Biatrial dilation. Moderate TR. Elevated RVSP is 50-55 mmHg. Electronically signed by : Italia Vidales MD 02/04/2025 15:33:51
[2025-02-04 08:09] LABS: Magnesium 1.8 mg/dl (1.6-2.3)
[2025-02-04 08:16] LABS: Lactate Venous 1.5 mmol/L (0.4-2.0); VBG Base Excess 3.2 mmol/L (-2.4-2.3); VBG HCO3 27.6 mmol/L (23-30); VBG Oxygen Saturation 98.8 % (50-70); VBG PCO2 42.8 mmol/L (35-51); VBG PH 7.43 mmol/L (7.31-7.41); VBG PO2 124.9 mmol/L (28-40); VBG Total CO2 28.9 mmol/L (23-27)
[2025-02-04] MEDS: METOPROLOL TARTRATE 5MG/5ML VIAL 5 MG IV (08:48)
--- NOTE | 2025-02-04 09:06 | EXP.CARD.CON ---
History of Present Illness History of Present Illness Consult date: 02/04/25 Requesting physician: Hussein Aparicio Consult reason: shortness of breath Chief complaint: shortness of breath History of present illness: Hospitalist note: This is an 84-year-old female who has a past medical history significant for breast cancer and heart tension who presents with a chief complaint of shortness of breath. Due to patient's symptoms, patient presented to the emergency room for evaluation. While in emergency room, chest x-ray per my read shows chronic changes-is pending final read by radiologist. Patient had an elevated white blood cell count, elevated lactic acid, and her pCO2 was 71. Patient was placed on the BiPAP and hospital medicine was consulted for further management. During my evaluation of the patient, patient was resting comfortably on the BiPAP. The majority of information was obtained from family member at the bedside. Family at the bedside states patient has had a 2-4-day history of shortness of air that has progressively gotten worse. She mentions that patient has a 50-year pack and 1/2-day smoking history. Review of ER documentation shows family voiced patient's prior use of Trelegy-family member did not discuss this with me. Family member did state that she has noticed patient complaining of being feverish when she normally states that she is cold by nature. Patient herself endorses shortness of air with some wheezing. It is also worth mentioning that patient is normally not dependent on supplemental oxygen. Recently, she was evaluated by her primary care physician who prescribed her an inhaler which did not improve her symptomology. Patient is currently denying any chest pain, lightheadedness, dizziness, PND, orthopnea, nausea, vomiting, or diarrhea. Additional pertinent vitals obtained include a pH of 7.17, PCO2 of 71.3, white blood cell count of 19.1, neutrophils 85.9%, venous lactic acid of 4.7, sodium 129, potassium of 5.5, chloride of 92, blood glucose of 207, and AST of 59. Cardiology note: This is a 84-year-old white female with past medical history of COPD who is currently admitted for COPD exacerbation. Cardiology was asked to evaluate patient for new onset A-fib RVR after administration of albuterol nebulizer treatment for COPD exacerbation. This morning patient remains in A-fib RVR and rate of 120. Morning labs are as follow: WBC 15.8, sodium 129, potassium 4.4, BUN 20, creatinine 0.3 and a troponin of 0.05. Echo is pending. [facility] Disclaimer: The information contained in this section may have been updated after the patient was seen, as this information can be updated by other users. Medical History Breast cancer Surgical History Hx of cholecystectomy History of hysterectomy H/O knee surgery Social History Smoking Status: Current every day smoker tobacco type: cigarettes packs per day: 1 alcohol intake: current alcohol intake frequency: holidays/special occasions only current occupational status: retired Travel in the last 8 weeks?: Inside the [place] caffeine: No Have you lived/traveled outside [place] in past 30 days?: No Contact w/someone who lives/traveled outside [place] past 30 days?: No Exposure to someone with infectious disease in past 14 days?: No Do you have a fever (greater than 100.4 F or 38 C)?: No Have you tested positive for COVID-19?: No Exposed to someone with COVID-19 in past 14 days?: No Do you have a sore throat?: No Do you have a cough?: No Do you have any weakness?: Yes Do you have any diarrhea?: No Are you experiencing any unusual bleeding?: No Do you have any muscle aches/pain?: No Do you have any abdominal pain?: No Are you experiencing loss of taste or smell?: No Review of Systems Review of Systems Review of systems:: pertinent systems reviewed and negative unless documented below *Neurologic Neurologic: Reports system reviewed and no additional complaints, except as documented Exam Data for Last 24 hours Vital signs and Labs for Last 24 Hours: Temp Pulse Resp BP Pulse Ox O2 Del Method O2 Flow Rate 98.1 F 122 H 22 137/77 90 L Nasal Cannula 2 02/04/25 08:01 02/04/25 08:01 02/04/25 08:01 02/04/25 08:01 02/04/25 08:01 02/04/25 08:01 02/04/25 08:01 FiO2 35 02/04/25 02:00 Laboratory Results - last 24 hr 02/03/25 09:05: VBG pH 7.31, VBG pCO2 55.7 H, VBG pO2 121.2 H, VBG HCO3 27.5, VBG Total CO2 29.3 H, VBG O2 Saturation 98.7 H, VBG Base Excess 1.3, VBG Lactic Acid 1.1 02/03/25 12:52: VBG pH 7.32, VBG pCO2 53.7 H, VBG pO2 138.8 H, VBG HCO3 27.2, VBG Total CO2 28.8 H, VBG O2 Saturation 98.9 H, VBG Base Excess 1.1, VBG Lactic Acid 1.2 02/03/25 13:05: Urine Color Yellow, Urine Appearance Cloudy, Urine pH 6.0, Ur Specific [place] 1.023, Urine Protein 2+ A, Urine Glucose (UA) Negative, Urine Ketones Negative, Urine Blood 2+ A, Urine Nitrate Positive A, Urine Bilirubin Negative, Urine Urobilinogen 0.2, Ur Leukocyte Esterase Negative, Urine RBC 5-10, Urine WBC 20-50, Ur Squamous Epith Cells 10-20, Urine Bacteria 4+, Urine Sodium < 5.0 L 02/04/25 04:50: WBC 15.8 H, RBC 3.72 L, Hgb 12.7 D, Hct 37.1, MCV 99.7 H, MCH 34.1 H, MCHC 34.2, RDW 12.9, Plt Count 353, MPV 8.8, Neut % (Auto) 85.6 H, Lymph % (Auto) 3.7 L, Nash % (Auto) 9.6 H, Eos % (Auto) 0.3, Baso % (Auto) 0.4, Neut # (Auto) 13.5 H, Lymph # (Auto) 0.6 L, Nash # (Auto) 1.5 H, Eos # (Auto) 0.1, Baso # (Auto) 0.1, Sodium 129 L, Potassium 4.4, Chloride 96 L, Carbon Dioxide 33 H, Anion Gap 4.4 L, BUN 20 H, Creatinine 0.60 D, Estimated Creat Clear 32, Estimated GFR 96, Est GFR ( Amer) 116 D, Glucose 103 H D, Calcium 9.1, Magnesium 1.8 02/04/25 07:40: VBG pH 7.43 H, VBG pCO2 42.8, VBG pO2 124.9 H, VBG HCO3 27.6, VBG Total CO2 28.9 H, VBG O2 Saturation 98.8 H, VBG Base Excess 3.2 H, VBG Lactic Acid 1.5 I & O for Last 24 hours: Intake & Output 02/01/25 02/02/25 02/03/25 02/04/25 23:59 23:59 23:59 23:59 Intake Total 405 / 405 105 / 105 Output Total 400 / 400 500 / 500 Balance 5 / 5 -395 / -395 Weight 96 lb 103 lb 1.41 oz 103 lb 9.6 oz Microbiology Reports for the Last 24 Hours: Microbiology 02/03/25 00:45 Blood Blood Culture - Preliminary NO GROWTH AFTER 24 HOURS 02/03/25 01:00 Blood Blood Culture - Preliminary NO GROWTH AFTER 24 HOURS Constitutional Constitutional: no acute distress *Routine Respiratory Exam Respiratory: Present wheezes and symmetric chest movement *Routine Cardiovascular Exam Cardiovascular: Present RRR, Normal S1 and Normal S2 *Routine Abdominal Exam Abdominal: Present soft and normoactive bowel sounds; Absent tenderness *Routine Extremities Exam Extremities: Present full ROM and normal capillary refill; Absent edema *Routine Skin Exam Skin: Present intact, dry and warm Detailed Neck Exam: Thyroids Thyroid: Absent bruit Meds Home Medications and Allergies Home Medications ?Medication ?Instructions ?Recorded ?Confirmed ?Type hydroxyzine HCl 25 mg tablet 25 mg PO Q8H PRN anxiety 90 days 07/04/23 02/03/25 Rx #270 tabs fluticasone fur. 100 mcg-umeclid 1 inh inhalation DAILY 30 days #60 10/03/23 02/03/25 Rx 62.5 mcg-vilant 25 mcg ea inhalat.powder (Trelegy Ellipta) albuterol 90 mcg-budesonide 80 2 inh inhalation 6XD PRN Asthma 04/09/24 02/03/25 Rx mcg/actuation HFA aerosol inhaler #5.9 grams (Airsupra) aspirin 81 mg tablet,delayed 81 mg PO DAILY #90 tabs 06/29/24 02/03/25 Rx release (Adult Low Dose Aspirin) albuterol sulfate 90 mcg/actuation 2 puff inhalation Q4-6H PRN 02/02/25 02/03/25 Rx aerosol inhaler shortness of breath or wheezing #8.5 grams atenolol 100 mg tablet 50 mg PO TID 02/03/25 02/03/25 History atorvastatin 40 mg tablet 40 mg PO HS 02/03/25 02/03/25 History citalopram 20 mg tablet 20 mg PO DAILY 02/03/25 02/03/25 History clopidogrel 75 mg tablet 75 mg PO DAILY 02/03/25 02/03/25 History New Prescriptions to Start Prescriptions: Allergies Allergy/AdvReac Type Severity Reaction Status Date / Time acetaminophen (From Lortab) Allergy Intermediate Hives Verified 11/19/24 13:29 hydrocodone (From Lortab) Allergy Intermediate Hives Verified 11/19/24 13:29 Assessment and Plan *Assessment and plan (1) COPD exacerbation: Status: Acute Category: Medical Code(s): J44.1 - Chronic obstructive pulmonary disease with (acute) exacerbation (2) Elevated troponin: Status: Acute Category: Medical Code(s): R79.89 - Other specified abnormal findings of blood chemistry (3) Atrial fibrillation with RVR: Status: Acute Category: Medical Code(s): I48.91 - Unspecified atrial fibrillation Plan Acute COPD exacerbation Elevated troponin in the setting of acute illness New onset A-fib RVR Troponin 0.03 trending up to 0.06 in the setting of acute illness with COPD exacerbation Denies chest pain EKG negative for STEMI D-dimer was elevated on admission. Recommend obtaining a CTA PE protocol to rule out pulmonary embolism. Start Toprol 12.5 mg p.o. daily for rate control Start Eliquis 5 mg p.o. daily twice daily Echocardiogram is pending. Prelim shows normal EF, RV mildly dysfunctional, biatrial dialtion. Recommend outpatient ischemic eval. CV summary 02/04/2025: Start Toprol 12.5 mg p.o. daily for A-fib rate control. Start Eliquis 5 mg p.o. twice daily for anticoagulation. Prelim echo shows normal EF, mildly dysfunctional RV, biatrial dilation. CTA chest pending.
--- NOTE | 2025-02-04 09:27 | CT_ITS ---
PROCEDURE INFORMATION: Exam: CTA Chest With Contrast Exam date and time: 02/04/2025 10:19 AM Age: 84 years old Clinical indication: Abnormal findings; Abnormal diagnostic tests; Elevated d-dimer; Additional info: Elevated d dimer TECHNIQUE: Imaging protocol: Computed tomographic angiography of the chest with contrast. Exam focused on the arteries. 3D rendering (Not supervised by radiologist): MIP and/or 3D reconstructed images were created by the technologist. Radiation optimization: All CT scans at this facility use at least one of these dose optimization techniques: automated exposure control; mA and/or kV adjustment per patient size (includes targeted exams where dose is matched to clinical indication); or iterative reconstruction. Contrast material: ISOVUE 370; Contrast volume: 70 ml; Contrast route: INTRAVENOUS (IV); COMPARISON: CT CHEST WO CON 08/16/2023 6:55 PM FINDINGS: Limitations: Motion artifact does moderately limit the sensitivity of this examination. Pulmonary arteries: No evidence of filling defects to suggest pulmonary emboli. Aorta: Infrarenal aorta stent grafts are partially imaged. Thoracic aorta is nonaneurysmal. Trachea: Main airways are patent. Lungs: Upper lobe predominant centrilobular emphysema noted. Grouped tree-in-bud opacities in lower lobes in keeping with bronchiolitis/aspiration pneumonitis. Pleural spaces: No pneumothorax. No pleural effusion. No pneumothorax. No pleural effusion. Heart: Cardiomegaly attributable to multi cardiac chamber enlargement. Heart RV/LV ratio: The RV/LV ratio is less than 1. Lymph nodes: Unremarkable. No enlarged lymph nodes. Adrenal glands: Indeterminate left adrenal lesion. Bones/joints: Unremarkable. No acute fracture. Soft tissues: Unremarkable. IMPRESSION: 1. No evidence of filling defects to suggest pulmonary emboli. 2. Grouped tree-in-bud opacities in lower lobes in keeping with bronchiolitis/aspiration pneumonitis. 3. Indeterminate 3 cm left adrenal lesion. Evaluation with non-emergent adrenal CT is recommended. (Reference: Fab) REFERENCES: Fab CONDON, et al. Management of Incidental Adrenal Masses: A White Paper of the ACR Incidental Findings Committee. J Am Annamaria Radiol. 2017;14(8):4205-3795.
[2025-02-04] MEDS: METOPROLOL SUCCINATE XL 25MG TABLET 12.5 MG PO (09:29)
[2025-02-04] MEDS: predniSONE 20MG TAB 40 MG PO (09:30)
[2025-02-04] MEDS: ASPIRIN EC 81MG TABLET 81 MG PO (09:30)
[2025-02-04] MEDS: AZITHROMYCIN 250MG TABLET 250 MG PO (09:30)
[2025-02-04] MEDS: guaiFENesin 600 MG TAB.ER.12H PO ×2 (09:31→21:13)
[2025-02-04] MEDS: ENOXAPARIN 40MG/0.4ML SYRINGE 40 MG SUBCUT (09:32)
--- NOTE | 2025-02-04 09:32 | P.PN_ITS ---
Subjective *Date: 02/04/25 *Time: 13:08 Interval history: No acute respiratory events overnight. Significant improvement in her respiratory symptoms. Pulmonology Exam Inpatient Vital signs and Labs for Last 24 Hours: Temp Pulse Resp BP Pulse Ox O2 Del Method O2 Flow Rate 98.1 F 122 H 22 137/77 90 L Nasal Cannula 2 02/04/25 08:01 02/04/25 08:01 02/04/25 08:01 02/04/25 08:01 02/04/25 08:01 02/04/25 08:01 02/04/25 08:01 FiO2 35 02/04/25 02:00 Laboratory Results - last 24 hr 02/03/25 12:52: VBG pH 7.32, VBG pCO2 53.7 H, VBG pO2 138.8 H, VBG HCO3 27.2, VBG Total CO2 28.8 H, VBG O2 Saturation 98.9 H, VBG Base Excess 1.1, VBG Lactic Acid 1.2 02/03/25 13:05: Urine Color Yellow, Urine Appearance Cloudy, Urine pH 6.0, Ur Specific [place] 1.023, Urine Protein 2+ A, Urine Glucose (UA) Negative, Urine Ketones Negative, Urine Blood 2+ A, Urine Nitrate Positive A, Urine Bilirubin Negative, Urine Urobilinogen 0.2, Ur Leukocyte Esterase Negative, Urine RBC 5- 10, Urine WBC 20-50, Ur Squamous Epith Cells 10-20, Urine Bacteria 4+, Urine Sodium < 5.0 L 02/04/25 04:50: WBC 15.8 H, RBC 3.72 L, Hgb 12.7 D, Hct 37.1, MCV 99.7 H, MCH 34.1 H, MCHC 34.2, RDW 12.9, Plt Count 353, MPV 8.8, Neut % (Auto) 85.6 H, Lymph % (Auto) 3.7 L, [place] % (Auto) 9.6 H, Eos % (Auto) 0.3, Baso % (Auto) 0.4, Neut # (Auto) 13.5 H, Lymph # (Auto) 0.6 L, [place] # (Auto) 1.5 H, Eos # (Auto) 0.1, Baso # (Auto) 0.1, Sodium 129 L, Potassium 4.4, Chloride 96 L, Carbon Dioxide 33 H, Anion Gap 4.4 L, BUN 20 H, Creatinine 0.60 D, Estimated Creat Clear 32, Estimated GFR 96, Est GFR ( Amer) 116 D, Glucose 103 H D, Calcium 9.1, Magnesium 1.8 02/04/25 07:40: VBG pH 7.43 H, VBG pCO2 42.8, VBG pO2 124.9 H, VBG HCO3 27.6, VBG Total CO2 28.9 H, VBG O2 Saturation 98.8 H, VBG Base Excess 3.2 H, VBG Lactic Acid 1.5 Temp Pulse Resp BP Pulse Ox O2 Del Method FiO2 97.5 F L 92 H 21 129/64 90 L BiPAP 35 02/03/25 02:00 02/03/25 11:36 02/03/25 10:00 02/03/25 10:00 02/03/25 11:36 02/03/25 11:36 02/03/25 11:36 Laboratory Results - last 24 hr 02/02/25 23:51: WBC 19.1 H, RBC 4.67, Hgb 15.8, Hct 46.3, MCV 99.1 H, MCH 33.8 H , MCHC 34.1, RDW 13.1, Plt Count 385, MPV 8.6, Neut % (Auto) 85.9 H, Lymph % (Auto) 3.4 L, [place] % (Auto) 8.3, Eos % (Auto) 1.3, Baso % (Auto) 0.6, Neut # (Auto) 16.4 H, Lymph # (Auto) 0.7, [place] # (Auto) 1.6 H, Eos # (Auto) 0.3, Baso # (Auto) 0.1, Total Counted 100, Neutrophils % (Manual) 85 H, Lymphocytes % (Manual) 6 L, Monocytes % (Manual) 9, Sodium 129 L, Potassium 5.5 H, Chloride 92 L, Carbon Dioxide 26, Anion Gap 16.5 H, BUN 17, Creatinine 0.40 L, Estimated Creat Clear 30, Estimated GFR 153, Est GFR ( Amer) 185, Glucose 207 H, Calcium 9.2, Total Bilirubin 1.0, AST 59 H, ALT 34, Alkaline Phosphatase 105, Troponin I 0.03, Total Protein 7.5, Albumin 4.5, Globulin 3.0, Albumin/Globulin Ratio 1.5, SARS-CoV-2 (PCR) Not detected, Influenza A Untype (PCR) Not detected, Influenza Type B (PCR) Not detected 02/03/25 00:00: VBG pH 7.17 L, VBG pCO2 71.3 H, VBG pO2 35.3, VBG HCO3 25.5, VBG Total CO2 27.7 H, VBG O2 Saturation 65.9, VBG Base Excess -3.0 L, VBG Lactic Acid 4.7 H 02/03/25 03:00: VBG pH 7.28 L, VBG pCO2 55.7 H, VBG pO2 68.0 H, VBG HCO3 25.3, VBG Total CO2 27.0, VBG O2 Saturation 94.0 H, VBG Base Excess -1.5, VBG Lactic Acid 2.7 H, Troponin I 0.06 H 02/03/25 03:03: SARS-CoV-2 (PCR) Not detected, Influenza Type A (PCR) Not detected, Influenza Type B (PCR) Not detected, RSV (PCR) Not detected, Rhinovirus (PCR) Not detected 02/03/25 05:26: WBC 17.7 H, RBC 4.32, Hgb 14.7, Hct 42.5, MCV 98.4, MCH 34.0 H, MCHC 34.6, RDW 12.9, Plt Count 332, MPV 9.4, Neut % (Auto) 87.4 H, Lymph % (Auto) 2.0 L, [place] % (Auto) 8.0, Eos % (Auto) 1.5, Baso % (Auto) 0.5, Neut # (Auto) 15.4 H, Lymph # (Auto) 0.4 L, [place] # (Auto) 1.4 H, Eos # (Auto) 0.3, Baso # (Auto) 0.1, D-Dimer 0.84 H, Sodium 131 L, Potassium 5.0, Chloride 95 L, Carbon Dioxide 31 H, Anion Gap 10.0, BUN 16, Creatinine 0.40 L, Estimated Creat Clear 32, Estimated GFR 153, Est GFR ( Amer) 185, Glucose 155 H D, Hemoglobin A1c 5.4, Lactate 1.3, Calcium 8.9, Troponin I 0.05 H, Procalcitonin 0.087 02/03/25 09:05: VBG pH 7.31, VBG pCO2 55.7 H, VBG pO2 121.2 H, VBG HCO3 27.5, VBG Total CO2 29.3 H, VBG O2 Saturation 98.7 H, VBG Base Excess 1.3, VBG Lactic Acid 1.1 I & O for Labs for Last 24 Hours: Intake & Output 02/01/25 02/02/25 02/03/25 02/04/25 23:59 23:59 23:59 23:59 Intake Total 405 / 405 105 / 105 Output Total 400 / 400 500 / 500 Balance 5 / 5 -395 / -395 Weight 96 lb 103 lb 1.41 oz 103 lb 9.6 oz Intake & Output 01/31/25 02/01/25 02/02/25 02/03/25 23:59 23:59 23:59 23:59 Intake Total 10 / 10 Balance 10 / 10 Weight 96 lb 103 lb 1.6 oz Microbiology Reports for the Last 24 Hours: Microbiology 02/03/25 00:45 Blood Blood Culture - Preliminary NO GROWTH AFTER 24 HOURS 02/03/25 01:00 Blood Blood Culture - Preliminary NO GROWTH AFTER 24 HOURS Constitutional: Present moderate distress Head: Present normocephalic and atraumatic ENT: Present normal exam, normal oropharynx and mucous membranes moist Neck: Present normal inspection and full ROM Respiratory: Present prolonged expiratory phase, respiratory distress, diminished air movement and able to speak in complete sentences; Absent wheezes Cardiac: Present S1/S2, Tachycardia and radial pulses present GI: Present soft and distention; Absent tenderness or guarding Rectal (female): Present deferred (female): Present deferred Skin: Present intact; Absent cyanosis or jaundice Neuro: Present alert, awake and oriented x 3 Extremities: Present normal inspection; Absent clubbing or cyanosis Psychiatric: Present normal affect and cooperative Assessment and Plan *Assessment and plan (1) Acute respiratory failure with hypoxia and hypercarbia: Status: Acute Category: Medical Code(s): J96.01 - Acute respiratory failure with hypoxia; J96.02 - Acute respiratory failure with hypercapnia (2) COPD exacerbation: Status: Acute Category: Medical Code(s): J44.1 - Chronic obstructive pulmonary disease with (acute) exacerbation Plan Ms. Leary is a 84-year-old female current smoker greater than [id number] smoking history, using ambulation therapies intermittently on as-needed basis presented today with worsening respiratory distress and pulmonary was called for further evaluation and management Patient blood gas upon admission showed hypercarbic respiratory failure needing noninvasive ventilatory therapy. Chest x-ray on admission no dense consolidative/airspace changes. Hyperinflated lungs. Afebrile. Hemodynamically stable. COVID-19 and flu PCR panel negative. Blood gas upon admission hypercarbic respiratory failure pH 7.17PCO 271.3. Improved the most recent prednisone 0.32, 53.7 Interval update: No acute respiratory vents overnight. Venous Blood gas from this morning 7.43 and pCO2 42.8 Plan: Trelegy 100 inhaler along with DuoNebs 4 times daily. Prednisone 40 mg daily x 5 days Continue azithromycinx 5 days Continue nasal cannula oxygen supplementation to maintain O2 saturation goal of 90% and above. No need for NIV tonight.
--- NOTE | 2025-02-04 09:33 | ECG_ITS ---
APPROVED REPORT Exam: Resting ECG HR:88 bpm ECG Measurements Heart Rate 88 AXES NC 124 P 64 QRSd 87 QRS 81 QT 351 T 56 QTc 397 Conclusion SINUS RHYTHM NORMAL ECG UNCONFIRMED REPORT Electronically signed by : Iglesia Silva MD 02/07/2025 08:45:07
--- NOTE | 2025-02-04 10:14 | PC.NURSE ---
PT LEFT ROOM WITH RAD FOR CTA @1014 VIA WHEELCHAIR.
[2025-02-04] MEDS: IOPAMIDOL-370 (76%);100ML BOTTLE 75 ML IV (10:21)
[2025-02-04] MEDS: SODIUM CHLORIDE 0.9% 10ML SYR (RAD ONLY) 10 ML IV (10:24)
[2025-02-04] MEDS: 0.9 % SODIUM CHLORIDE 50 ML VIAL IV (10:26)
--- NOTE | 2025-02-04 10:40 | PC.NURSE ---
pt is back to room 264 from RAD @8581. family is at BS and call light is within reach.
[2025-02-04] MEDS: FLUTICASONE/UMECLIDIN/VILANTER 200/62.5/25MCG INHALER 1 PUFF IH (11:27)
--- NOTE | 2025-02-04 12:59 | PC.NURSE ---
pt oxygen saturation level is 95% on room air at rest.
--- NOTE | 2025-02-04 13:55 | PC.NURSE ---
pt from room 264 to room 215 on MS with MS SRNA via wheelchair @[id number]
[2025-02-04] MEDS: APIXABAN 5MG TABLET 5 MG PO (21:14)
[2025-02-04] MEDS: CEFTRIAXONE 1 GM 1 GM in 0.9 % SODIUM CHLORIDE 50 ML IV (21:14)
[2025-02-04] MEDS: MONTELUKAST SODIUM 10MG TAB 10 MG PO (21:14)
[2025-02-05] VITALS (10 sets, daily range): BP systolic 150–184; BP diastolic 81–98; PULSE 70–98; RESP 16–24; TEMP 36.4–36.8; O2SAT 83–100; BMI 15.7
[2025-02-05 06:10] LABS: Basophils # 0.1 K/mm3 (0-0.2); Basophils % 0.5 % (0.1-2.0); Eosinophils # 0.1 Kmm3 (0.0-0.4); Eosinophils % 0.3 % (0.1-12.0); Hematocrit 39.9 % (37.0-47.0); Hemoglobin 13.3 g/dL (12.2-16.2); Immature Granulocytes # 0.08 10^3uL; Immature Granulocytes % 0.5 %; Lymphocytes # 1.3 K/mm3 (0.7-4.5); Lymphocytes % 8.5 % (10-50); Mean Corpuscular HGB Conc 33.3 g/dL (31.8-35.4); Mean Corpuscular Hemoglobin 33.3 pg (27.0-31.2); Mean Platelet Volume 8.6 fl (7.4-10.4); Monocytes # 1.6 K/mm3 (0.1-1.0); Monocytes % 10.8 % (1.7-9.3); Neutrophils # 11.9 K/mm3 (1.8-7.8); Neutrophils % 79.4 % (37.0-80.0); Nucleated Red Blood Cells # 0 10^3/uL; Nucleated Red Blood Cells % 0 %; Platelet Count 342 K/mm3 (142-424); Red Blood Count 3.99 M/mm3 (4.20-5.40); Red Cell Distribution Width 12.9 % (11.5-17.5); Red Cell Distribution Width-SD 47.9 fL
--- NOTE | 2025-02-05 06:10 | ECG_ITS ---
APPROVED REPORT Exam: Resting ECG HR:116 bpm ECG Measurements Heart Rate 116 AXES QRSd 113 QRS 86 QT 307 T 53 QTc 376 Conclusion ATRIAL FIBRILLATION WITH RAPID VENTRICULAR RESPONSE MODERATE INTRAVENTRICULAR CONDUCTION DELAY [110+ ms QRS DURATION] MODERATE ST DEPRESSION [0.05+ mV ST DEPRESSION] ABNORMAL ECG UNCONFIRMED REPORT Electronically signed by : Iglesia Silva MD 02/07/2025 08:43:41
[2025-02-05] MEDS: FLUTICASONE/UMECLIDIN/VILANTER 200/62.5/25MCG INHALER 1 PUFF IH (06:19)
[2025-02-05] MEDS: METOPROLOL TARTRATE 5MG/5ML VIAL 5 MG IV (06:49)
[2025-02-05] MEDS: METOPROLOL TARTRATE 25MG TABLET 25 MG PO ×3 (06:49→21:30)
--- NOTE | 2025-02-05 06:55 | PC.NURSE ---
around 0600 patient had a rhythm change on tele from NSR to AFib with RVR, HR between 110s-130s, EKG was obtained to confirm, MD was notified and telphone orders were received and read back to give lopressor 25 mg PO Q8H to start now and lopressor 5 mg IVP once now. medications given per MD orders.
[2025-02-05 07:04] LABS: Anion Gap 7.1 mEq/L (5-15); Blood Urea Nitrogen 25 mg/dl (7-17); Carbon Dioxide 33 mmol/L (22.0-30.0); Chloride 95 mmol/L (98-107); Creatinine Clearance Estimated 30 mL/min (50-200); Estimated Glomerular Filt Rate 153 ml/min (>60); GFR (African American) 185 ML/MIN (>60); Glucose 137 mg/dl (74-100); Potassium 5.1 mmoL/L (3.5-5.1); Sodium 130 mmol/L (136-145)
[2025-02-05 07:06] LABS: MANUAL DIFFERENTIAL MANUAL DIFFERENTIAL (MANUAL DIFF)
--- NOTE | 2025-02-05 08:20 | P.PN_ITS ---
Subjective *Date: 02/04/25 *Time: 08:20 Interval history: Date of service 02/04/2025 Exam Data for Last 24 hours Vital signs and Labs for Last 24 Hours: Temp Pulse Resp BP Pulse Ox O2 Del Method O2 Flow Rate 97.5 F L 86 23 174/94 H 100 Nasal Cannula 2 02/05/25 04:00 02/05/25 04:00 02/05/25 04:00 02/05/25 04:00 02/05/25 06:20 02/05/25 07:00 02/05/25 07:00 FiO2 35 02/04/25 02:00 Laboratory Results - last 24 hr 02/05/25 05:28: WBC 15.0 H, RBC 3.99 L, Hgb 13.3, Hct 39.9, MCV 100.0 H, MCH 33.3 H, MCHC 33.3, RDW 12.9, Plt Count 342, MPV 8.6, Neut % (Auto) 79.4, Lymph % (Auto) 8.5 L, [place] % (Auto) 10.8 H, Eos % (Auto) 0.3, Baso % (Auto) 0.5, Neut # (Auto) 11.9 H, Lymph # (Auto) 1.3, [place] # (Auto) 1.6 H, Eos # (Auto) 0.1, Baso # (Auto) 0.1, Sodium 130 L, Potassium 5.1, Chloride 95 L, Carbon Dioxide 33 H, Anion Gap 7.1, BUN 25 H, Creatinine 0.40 L D, Estimated Creat Clear 30, Estimated GFR 153, Est GFR ( Amer) 185 D, Glucose 137 H, Magnesium 2.0 D I & O for Last 24 hours: Intake & Output 02/02/25 02/03/25 02/04/25 02/05/25 23:59 23:59 23:59 23:59 Intake Total 405 / 405 595 / 885 290 / 290 Output Total 400 / 400 850 / 850 0 / 0 Balance 5 / 5 -255 / 35 290 / 290 Weight 43.545 kg 46.76 kg 46.992 kg 44.452 kg Microbiology Reports for the Last 24 Hours: Microbiology 02/03/25 13:05 Urine,Clean Catch Urine Culture - Final Multiple organisms, suggests contamination. 02/03/25 01:00 Blood Blood Culture - Preliminary NO GROWTH AFTER 48 HOURS 02/03/25 00:45 Blood Blood Culture - Preliminary NO GROWTH AFTER 48 HOURS
[2025-02-05] MEDS: predniSONE 20MG TAB 40 MG PO (08:56)
[2025-02-05] MEDS: APIXABAN 5MG TABLET 5 MG PO ×2 (08:56→20:34)
[2025-02-05] MEDS: AZITHROMYCIN 250MG TABLET 250 MG PO (08:56)
[2025-02-05] MEDS: ASPIRIN EC 81MG TABLET 81 MG PO (08:56)
[2025-02-05] MEDS: guaiFENesin 600 MG TAB.ER.12H PO ×2 (08:56→20:34)
[2025-02-05 09:02] LABS: Calcium 8.9 mg/dl (8.4-10.2)
--- NOTE | 2025-02-05 10:41 | PC.NURSE ---
Pt weaned to room air per MD. Sats dropped between 83-85%. 2L NC reapplied to pt. sats now 95%
[2025-02-05 11:50] LABS: Lymphocytes % 9 % (10-50); Macrocytosis 1+; Monocytes % 2 % (2-9); Neutrophils % 89 % (42-76); Platelet Estimate Normal; Total Cells Counted 100
[2025-02-05] MEDS: CLOPIDOGREL 75MG TAB 75 MG PO (14:51)
--- NOTE | 2025-02-05 17:49 | PC.NURSE ---
Pt is A&Ox4. Hypertensive this afternoon, made aware of hypertension. Otherwise vital signs stable tolerating 2L NC. Pt continues to have congestive cough. Up to the bathroom with assistance. Family at bedside. Pt resting comfortably with no further needs voiced at this time. Call light within reach
--- NOTE | 2025-02-05 18:48 | EXP.PN ---
Subjective *Date: 02/16/25 *Time: 18:32 Exam Data for Last 24 hours Vital signs and Labs for Last 24 Hours: Temp Pulse Resp BP Pulse Ox O2 Del Method O2 Flow Rate 98.3 F 76 16 171/81 H 100 Nasal Cannula 2 02/05/25 16:00 02/05/25 16:00 02/05/25 16:00 02/05/25 17:03 02/05/25 16:00 02/05/25 17:00 02/05/25 17:00 FiO2 35 02/04/25 02:00 Laboratory Results - last 24 hr 02/05/25 05:28: WBC 15.0 H, RBC 3.99 L, Hgb 13.3, Hct 39.9, MCV 100.0 H, MCH 33.3 H, MCHC 33.3, RDW 12.9, Plt Count 342, MPV 8.6, Neut % (Auto) 79.4, Lymph % (Auto) 8.5 L, [place] % (Auto) 10.8 H, Eos % (Auto) 0.3, Baso % (Auto) 0.5, Neut # (Auto) 11.9 H, Lymph # (Auto) 1.3, [place] # (Auto) 1.6 H, Eos # (Auto) 0.1, Baso # (Auto) 0.1, Total Counted 100, Neutrophils % (Manual) 89 H, Lymphocytes % (Manual) 9 L, Monocytes % (Manual) 2, Platelet Estimate Normal, Macrocytosis 1+, Sodium 130 L, Potassium 5.1, Chloride 95 L, Carbon Dioxide 33 H, Anion Gap 7.1, BUN 25 H, Creatinine 0.40 L D, Estimated Creat Clear 30, Estimated GFR 153, Est GFR ( Amer) 185 D, Glucose 137 H, Calcium 8.9, Magnesium 2.0 D I & O for Last 24 hours: Intake & Output 02/02/25 02/03/25 02/04/25 02/05/25 23:59 23:59 23:59 23:59 Intake Total 405 / 405 595 / 885 610 / 610 Output Total 400 / 400 850 / 850 600 / 600 Balance 5 / 5 -255 / 35 10 / 10 Weight 43.545 kg 46.76 kg 46.992 kg 44.452 kg Microbiology Reports for the Last 24 Hours: Microbiology 02/03/25 13:05 Urine,Clean Catch Urine Culture - Final Multiple organisms, suggests contamination. 02/03/25 01:00 Blood Blood Culture - Preliminary NO GROWTH AFTER 48 HOURS 02/03/25 00:45 Blood Blood Culture - Preliminary NO GROWTH AFTER 48 HOURS Constitutional Constitutional: no acute distress and cachectic *Routine HEENT Exam Head: Present normocephalic Eye: Present EOMI and PERRL ENT: Present mucous membranes moist *Routine Neck Exam Neck: Present supple; Absent lymphadenopathy *Routine Respiratory Exam Respiratory: Present CTA bilaterally *Routine Cardiovascular Exam Cardiovascular: Present RRR *Routine Abdominal Exam Abdominal: Present soft and normoactive bowel sounds; Absent tenderness *Routine Extremities Exam Extremities: Absent cyanosis, clubbing or edema *Routine Skin Exam Skin: Present warm; Absent rash *Routine Neurological Exam Neurological: Present alert and oriented X3 Assessment and Plan *Assessment and plan (1) Acute respiratory failure with hypoxia and hypercarbia: Status: Resolved Category: Medical Code(s): J96.01 - Acute respiratory failure with hypoxia; J96.02 - Acute respiratory failure with hypercapnia (2) Acidosis, lactic: Status: Resolved Category: Medical Code(s): E87.20 - Acidosis, unspecified (3) Hyperkalemia: Status: Resolved Category: Medical Code(s): E87.5 - Hyperkalemia (4) Hyponatremia: Status: Resolved Category: Medical Code(s): E87.1 - Hypo-osmolality and hyponatremia (5) COPD exacerbation: Status: Resolved Category: Medical Code(s): J44.1 - Chronic obstructive pulmonary disease with (acute) exacerbation (6) Hyperglycemia: Status: Resolved Category: Medical Code(s): R73.9 - Hyperglycemia, unspecified (7) Leukocytosis: Status: Resolved Qualifiers: Leukocytosis type: unspecified Qualified Code(s): D72.829 - Elevated white blood cell count, unspecified Category: Medical Code(s): D72.829 - Elevated white blood cell count, unspecified Plan April Leary is a 84-year-old female who presented with shortness of breath, altered mentation and was admitted for hypercapnic respiratory failure secondary to COPD, UTI. #Acute hypercapnic respiratory failure #Acute COPD exacerbation ? Clinically improved with DuoNebs, Pulmicort, steroids, antibiotics. ? Pulmonology consulted, continue Trelegy 100 and prednisone 40 mg, azithromycin daily. ? Currently on room air. #Acute metabolic encephalopathy #UTI #Sepsis ? Continue ceftriaxone. #A-fib RVR ? In the setting of sepsis. Currently rate controlled. ? Continue metoprolol succinate 12.5 mg, Eliquis 5 mg twice daily. #History of carotid artery stenosis #NSTEMI type II ? Mildly elevated troponin to 0.06, down trended. EKG without acute ischemic changes. Likely demand ischemia in the setting of sepsis. Cardiology consulted, agreed with plan. ? Continue aspirin 81 mg, Plavix 75 mg, atorvastatin 40 mg. #Anxiety/depression ? Continue home citalopram 20 mg. #Severe protein calorie malnutrition ? Continue Ensure with meals. DNR [place] Total time spent on discharge: 32 minutes on chart review, counseling, documentation, and direct care with patient.
[2025-02-05] MEDS: MONTELUKAST SODIUM 10MG TAB 10 MG PO (20:34)
[2025-02-05] MEDS: ATORVASTATIN 40MG TABLET 40 MG PO (20:34)
[2025-02-05] MEDS: CEFTRIAXONE 1 GM 1 GM in 0.9 % SODIUM CHLORIDE 50 ML IV (20:35)
[2025-02-06] VITALS: BP 154/95; PULSE 100; PULSE 95; RESP 19; TEMP 36.4; O2SAT 100
[2025-02-06 04:00] VITALS: BP 173/97; PULSE 75; PULSE 82; RESP 24; TEMP 36.5; O2SAT 98; BMI 15.3
[2025-02-06] MEDS: METOPROLOL TARTRATE 25MG TABLET 25 MG PO ×2 (05:38→13:31)
[2025-02-06] MEDS: FLUTICASONE/UMECLIDIN/VILANTER 200/62.5/25MCG INHALER 1 PUFF IH (06:24)
[2025-02-06 06:29] LABS: Basophils % 0.2 % (0.1-2.0); Eosinophils % 0.2 % (0.1-12.0); Hematocrit 38.9 % (37.0-47.0); Hemoglobin 12.6 g/dL (12.2-16.2); Immature Granulocytes % 0.8 %; Lymphocytes # 1.2 K/mm3 (0.7-4.5); Lymphocytes % 9.3 % (10-50); Mean Corpuscular HGB Conc 32.4 g/dL (31.8-35.4); Mean Corpuscular Hemoglobin 31.8 pg (27.0-31.2); Mean Corpuscular Volume 98.2 fl (81-99); Mean Platelet Volume 8.3 fl (7.4-10.4); Monocytes # 1.4 K/mm3 (0.1-1.0); Monocytes % 11.1 % (1.7-9.3); Neutrophils # 10.1 K/mm3 (1.8-7.8); Neutrophils % 78.4 % (37.0-80.0); Nucleated Red Blood Cells # 0 10^3/uL; Nucleated Red Blood Cells % 0 %; Platelet Count 371 K/mm3 (142-424); Red Blood Count 3.96 M/mm3 (4.20-5.40); Red Cell Distribution Width 12.3 % (11.5-17.5); Red Cell Distribution Width-SD 44.9 fL; White Blood Count 12.8 K/mm3 (4.8-10.8)
[2025-02-06 06:31] LABS: Chloride 88 mmol/L (98-107); Potassium 4.2 mmoL/L (3.5-5.1); Sodium 129 mmol/L (136-145)
[2025-02-06 06:34] LABS: Blood Urea Nitrogen 15 mg/dl (7-17); Calcium 8.8 mg/dl (8.4-10.2); Creatinine Clearance Estimated 30 mL/min (50-200); Estimated Glomerular Filt Rate 153 ml/min (>60); GFR (African American) 185 ML/MIN (>60); Glucose 100 mg/dl (74-100)
[2025-02-06 06:41] LABS: Anion Gap 5.2 mEq/L (5-15); Carbon Dioxide 40 mmol/L (22.0-30.0)
[2025-02-06 06:46] LABS: Magnesium 1.9 mg/dl (1.6-2.3)
[2025-02-06 08:00] VITALS: BP 173/84; PULSE 70; PULSE 90; RESP 18; TEMP 36.5; O2SAT 100
[2025-02-06] MEDS: AZITHROMYCIN 250MG TABLET 250 MG PO (08:31)
[2025-02-06] MEDS: predniSONE 20MG TAB 40 MG PO (08:31)
[2025-02-06] MEDS: ASPIRIN EC 81MG TABLET 81 MG PO (08:31)
[2025-02-06] MEDS: CITALOPRAM 20MG TABLET 20 MG PO (08:31)
[2025-02-06] MEDS: APIXABAN 5MG TABLET 5 MG PO (08:31)
[2025-02-06] MEDS: guaiFENesin 600 MG TAB.ER.12H PO (08:31)
[2025-02-06] MEDS: CLOPIDOGREL 75MG TAB 75 MG PO (08:37)
--- NOTE | 2025-02-06 08:43 | P.PN_ITS ---
Subjective *Date: 02/06/25 *Time: 08:43 Medical Exam Vital signs and Labs for Last 24 Hours: Vital Signs Temp Pulse Pulse Resp BP Pulse Ox O2 Del Method 02/06/25 06:56 Nasal Cannula 02/06/25 05:00 Nasal Cannula 02/06/25 04:00 97.7 F 82 24 173/97 H 98 Nasal Cannula 02/06/25 04:00 75 02/06/25 03:00 Nasal Cannula 02/06/25 01:00 Nasal Cannula 02/06/25 00:00 95 H 02/06/25 00:00 97.6 F 100 H 19 154/95 H 100 Nasal Cannula 02/05/25 21:00 Nasal Cannula 02/05/25 20:00 Nasal Cannula 02/05/25 20:00 95 H 02/05/25 20:00 98.2 F 84 16 179/98 H 100 Room Air 02/05/25 18:56 Nasal Cannula 02/05/25 18:50 Nasal Cannula 02/05/25 17:03 171/81 H 02/05/25 17:00 Nasal Cannula 02/05/25 16:00 80 02/05/25 16:00 98.3 F 76 16 184/96 H 100 Nasal Cannula 02/05/25 15:00 Nasal Cannula 02/05/25 14:50 86 169/90 H 99 Nasal Cannula 02/05/25 13:00 Nasal Cannula 02/05/25 12:00 97.7 F 98 H 20 175/85 H 93 L Nasal Cannula 02/05/25 12:00 90 02/05/25 11:00 Nasal Cannula 02/05/25 10:41 95 Nasal Cannula 02/05/25 10:41 83 L Room Air 02/05/25 09:00 Nasal Cannula O2 Flow Rate 02/06/25 06:56 2 02/06/25 05:00 2 02/06/25 04:00 1 02/06/25 04:00 02/06/25 03:00 2 02/06/25 01:00 2 02/06/25 00:00 02/06/25 00:00 1 02/05/25 21:00 2 02/05/25 20:00 2 02/05/25 20:00 02/05/25 20:00 02/05/25 18:56 2 02/05/25 18:50 2 02/05/25 17:03 02/05/25 17:00 2 02/05/25 16:00 02/05/25 16:00 2 02/05/25 15:00 2 02/05/25 14:50 2 02/05/25 13:00 2 02/05/25 12:00 2 02/05/25 12:00 02/05/25 11:00 2 02/05/25 10:41 2 02/05/25 10:41 02/05/25 09:00 2 Intake and Output 02/05/25 02/06/25 02/06/25 23:59 07:59 15:59 Intake Total 270 / 930 50 / 50 Output Total 700 / 1100 250 / 250 Balance -430 / -170 -200 / -200 Intake: Intake, Oral Amount 270 / 830 Intake, Total IV Amount 50 / 50 Ceftriaxone 1 gm 1 gm In 0.9 % 50 / 50 Sodium Chloride 50 ml @ 100 mls /hr IV Q24H ON LICENSE OF [facility] Rx#:[id number] Output: Output, Urine Amount 700 / 1100 250 / 250 Other: Weight 43.318 kg Patient Weight 02/06/25 23:59 Weight 43.318 kg Laboratory Results - last 24 hr 02/05/25 05:28: Total Counted 100, Neutrophils % (Manual) 89 H, Lymphocytes % (Manual) 9 L, Monocytes % (Manual) 2, Platelet Estimate Normal, Macrocytosis 1+, Calcium 8.9 02/06/25 05:50: WBC 12.8 H, RBC 3.96 L, Hgb 12.6, Hct 38.9, MCV 98.2, MCH 31.8 H , MCHC 32.4, RDW 12.3, Plt Count 371, MPV 8.3, Neut % (Auto) 78.4, Lymph % (Auto) 9.3 L, [place] % (Auto) 11.1 H, Eos % (Auto) 0.2, Baso % (Auto) 0.2, Neut # (Auto) 10.1 H, Lymph # (Auto) 1.2, [place] # (Auto) 1.4 H, Eos # (Auto) 0.0, Baso # (Auto) 0.0, Sodium 129 L, Potassium 4.2, Chloride 88 L, Carbon Dioxide 40 H, Anion Gap 5.2, BUN 15 D, Creatinine 0.40 L, Estimated Creat Clear 30, Estimated GFR 153, Est GFR ( Amer) 185, Glucose 100, Calcium 8.8, Magnesium 1.9 I & O for Labs for Last 24 Hours: Intake & Output 02/03/25 02/04/25 02/05/25 02/06/25 23:59 23:59 23:59 23:59 Intake Total 405 / 405 595 / 885 880 / 930 50 / 50 Output Total 400 / 400 850 / 850 1100 / 1100 250 / 250 Balance -255 / 35 -220 / -170 -200 / -200 Weight 46.76 kg 46.992 kg 44.452 kg 43.318 kg Microbiology Reports for the Last 24 Hours: Microbiology 02/03/25 13:05 Urine,Clean Catch Urine Culture - Final Multiple organisms, suggests contamination. The patient's infection will respond to the chosen ABx?: Yes (URINE CX CONTAMINATED, BLOOD CX NO GROWTH, AFEBRILE OVER 24 HR) Is the patient receiving the right drug, dose, and route?: Yes Could a more targeted ABx be ordered?: No How long ABx needed (days)?: 7
--- NOTE | 2025-02-06 10:27 | EXP.DC.SUM ---
General Admission date:: 02/03/25 HPI HPI HPI: This is an 84-year-old female who has a past medical history significant for breast cancer and heart tension who presents with a chief complaint of shortness of breath. Due to patient's symptoms, patient presented to the emergency room for evaluation. While in emergency room, chest x-ray per my read shows chronic changes-is pending final read by radiologist. Patient had an elevated white blood cell count, elevated lactic acid, and her pCO2 was 71. Patient was placed on the BiPAP and hospital medicine was consulted for further management. During my evaluation of the patient, patient was resting comfortably on the BiPAP. The majority of information was obtained from family member at the bedside. Family at the bedside states patient has had a 2-4-day history of shortness of air that has progressively gotten worse. She mentions that patient has a 50-year pack and 1/2-day smoking history. Review of ER documentation shows family voiced patient's prior use of Trelegy-family member did not discuss this with me. Family member did state that she has noticed patient complaining of being feverish when she normally states that she is cold by nature. Patient herself endorses shortness of air with some wheezing. It is also worth mentioning that patient is normally not dependent on supplemental oxygen. Recently, she was evaluated by her primary care physician who prescribed her an inhaler which did not improve her symptomology. Patient is currently denying any chest pain, lightheadedness, dizziness, PND, orthopnea, nausea, vomiting, or diarrhea. Additional pertinent vitals obtained include a pH of 7.17, PCO2 of 71.3, white blood cell count of 19.1, neutrophils 85.9%, venous lactic acid of 4.7, sodium 129, potassium of 5.5, chloride of 92, blood glucose of 207, and AST of 59. Hospital Course Hospital Course Hospital Course: Arpil Leary is a 84-year-old female who presented with shortness of breath, altered mentation and was admitted for hypercapnic respiratory failure secondary to COPD, UTI. #Acute hypercapnic respiratory failure #Acute COPD exacerbation ? Clinically improved with DuoNebs, Pulmicort, steroids, antibiotics. Weaned to 2 L nasal cannula, continue to wean as tolerated. ? Pulmonology consulted, started Trelegy 100. Discharged with prednisone 40 mg for 1 more day, levofloxacin 750 mg for 3 more days. #Acute metabolic encephalopathy #UTI #Sepsis ? Improved with ceftriaxone, transitioned to levofloxacin for 3 more days. #History of carotid artery stenosis #NSTEMI type II ? Mildly elevated troponin to 0.06, down trended. EKG without acute ischemic changes. Likely demand ischemia in the setting of sepsis. Cardiology consulted, agreed with plan. ? Continue aspirin 81 mg, Plavix 75 mg, atorvastatin 40 mg. #A-fib RVR ? In the setting of sepsis. Currently rate controlled. ? Discharged with metoprolol succinate 100 mg, Eliquis 5 mg twice daily. #Anxiety/depression ? Continue home citalopram 20 mg. #Severe protein calorie malnutrition ? Continue Ensure with meals. Total time spent on discharge: 32 minutes on chart review, counseling, documentation, and direct care with patient. Exam Data for Last 24 hours Vital signs and Labs for Last 24 Hours: Temp Pulse Resp BP Pulse Ox O2 Del Method O2 Flow Rate 97.7 F 90 18 173/84 H 100 Nasal Cannula 2 02/06/25 08:00 02/06/25 08:00 02/06/25 08:00 02/06/25 08:00 02/06/25 08:00 02/06/25 09:00 02/06/25 09:00 FiO2 35 02/04/25 02:00 Laboratory Results - last 24 hr 02/05/25 05:28: Total Counted 100, Neutrophils % (Manual) 89 H, Lymphocytes % (Manual) 9 L, Monocytes % (Manual) 2, Platelet Estimate Normal, Macrocytosis 1+ 02/06/25 05:50: WBC 12.8 H, RBC 3.96 L, Hgb 12.6, Hct 38.9, MCV 98.2, MCH 31.8 H, MCHC 32.4, RDW 12.3, Plt Count 371, MPV 8.3, Neut % (Auto) 78.4, Lymph % (Auto) 9.3 L, Ritchie % (Auto) 11.1 H, Eos % (Auto) 0.2, Baso % (Auto) 0.2, Neut # (Auto) 10.1 H, Lymph # (Auto) 1.2, Ritchie # (Auto) 1.4 H, Eos # (Auto) 0.0, Baso # (Auto) 0.0, Sodium 129 L, Potassium 4.2, Chloride 88 L, Carbon Dioxide 40 H, Anion Gap 5.2, BUN 15 D, Creatinine 0.40 L, Estimated Creat Clear 30, Estimated GFR 153, Est GFR ( Amer) 185, Glucose 100, Calcium 8.8, Magnesium 1.9 I & O for Last 24 hours: Intake & Output 02/03/25 02/04/25 02/05/25 02/06/25 23:59 23:59 23:59 23:59 Intake Total 405 / 405 595 / 885 880 / 930 50 / 50 Output Total 400 / 400 850 / 850 1100 / 1100 250 / 250 Balance -255 / 35 -220 / -170 -200 / -200 Weight 46.76 kg 46.992 kg 44.452 kg 43.318 kg Microbiology Reports for the Last 24 Hours: Microbiology 02/03/25 13:05 Urine,Clean Catch Urine Culture - Final Multiple organisms, suggests contamination. Constitutional Constitutional: no acute distress and cachectic *Routine HEENT Exam Head: Present normocephalic Eye: Present EOMI and PERRL ENT: Present mucous membranes moist *Routine Neck Exam Neck: Present supple; Absent lymphadenopathy *Routine Respiratory Exam Respiratory: Present CTA bilaterally *Routine Cardiovascular Exam Cardiovascular: Present RRR *Routine Abdominal Exam Abdominal: Present soft and normoactive bowel sounds; Absent tenderness *Routine Extremities Exam Extremities: Absent cyanosis, clubbing or edema *Routine Skin Exam Skin: Present warm; Absent rash *Routine Neurological Exam Neurological: Present alert and oriented X3 Results Data Completed and Pending Labs on day of discharge: Labs from last 24 hours 02/06/25 02/05/25 05:50 05:28 WBC 12.8 H RBC 3.96 L Hgb 12.6 Hct 38.9 MCV 98.2 MCH 31.8 H MCHC 32.4 RDW 12.3 Plt Count 371 MPV 8.3 Neut % (Auto) 78.4 Lymph % (Auto) 9.3 L Ritchie % (Auto) 11.1 H Eos % (Auto) 0.2 Baso % (Auto) 0.2 Neut # (Auto) 10.1 H Lymph # (Auto) 1.2 Ritchie # (Auto) 1.4 H Eos # (Auto) 0.0 Baso # (Auto) 0.0 Total Counted 100 Neutrophils % (Manual) 89 H Lymphocytes % (Manual) 9 L Monocytes % (Manual) 2 Platelet Estimate Normal Macrocytosis 1+ Sodium 129 L Potassium 4.2 Chloride 88 L Carbon Dioxide 40 H Anion Gap 5.2 BUN 15 D Creatinine 0.40 L Estimated Creat Clear 30 Estimated GFR 153 Est GFR ( Amer) 185 Glucose 100 Calcium 8.8 Magnesium 1.9 Preliminary micro results at discharge 02/03/25 01:00 Blood Culture - Preliminary Blood NO GROWTH AFTER 48 HOURS 02/03/25 00:45 Blood Culture - Preliminary Blood NO GROWTH AFTER 48 HOURS DS: Diagnosis Discharge Diagnosis (1) Acute respiratory failure with hypoxia and hypercarbia: Status: Acute Code(s): J96.01 - Acute respiratory failure with hypoxia; J96.02 - Acute respiratory failure with hypercapnia (2) Acidosis, lactic: Status: Acute Code(s): E87.20 - Acidosis, unspecified (3) Hyperkalemia: Status: Acute Code(s): E87.5 - Hyperkalemia (4) Hyponatremia: Status: Acute Code(s): E87.1 - Hypo-osmolality and hyponatremia (5) COPD exacerbation: Status: Acute Code(s): J44.1 - Chronic obstructive pulmonary disease with (acute) exacerbation (6) Hyperglycemia: Status: Acute Code(s): R73.9 - Hyperglycemia, unspecified (7) Leukocytosis: Status: Acute Code(s): D72.829 - Elevated white blood cell count, unspecified Qualifiers: Leukocytosis type: unspecified Qualified Code(s): D72.829 - Elevated white blood cell count, unspecified Meds Home Medications and Allergies Home Medications ?Medication ?Instructions ?Recorded ?Confirmed ?Type hydroxyzine HCl 25 mg tablet 25 mg PO Q8H PRN anxiety 90 days 07/04/23 02/03/25 Rx #270 tabs fluticasone fur. 100 mcg-umeclid 1 inh inhalation DAILY 30 days #60 10/03/23 02/03/25 Rx 62.5 mcg-vilant 25 mcg ea inhalat.powder (Trelegy Ellipta) aspirin 81 mg tablet,delayed 81 mg PO DAILY #90 tabs 06/29/24 02/03/25 Rx release (Adult Low Dose Aspirin) albuterol sulfate 90 mcg/actuation 2 puff inhalation Q4-6H PRN 02/02/25 02/03/25 Rx aerosol inhaler shortness of breath or wheezing #8.5 grams atorvastatin 40 mg tablet 40 mg PO HS 02/03/25 02/03/25 History citalopram 20 mg tablet 20 mg PO DAILY 02/03/25 02/03/25 History clopidogrel 75 mg tablet 75 mg PO DAILY 02/03/25 02/03/25 History apixaban 5 mg tablet (Eliquis) 5 mg PO BID 30 days #60 tabs 02/06/25 Rx fluticasone fur. 200 mcg-umeclid 1 inh inhalation DAILY 30 days #60 02/06/25 Rx 62.5 mcg-vilant 25 mcg ea inhalat.powder (Trelegy Ellipta) levofloxacin 750 mg tablet 750 mg PO Q48H 3 days #2 tabs 02/06/25 Rx metoprolol succinate 100 mg 100 mg PO DAILY 30 days #30 tabs 02/06/25 Rx tablet,extended release 24 hr prednisone 20 mg tablet 40 mg (2 x 20 mg) PO DAILY 1 day 02/06/25 Rx #2 tabs New Prescriptions to Start Prescriptions: apixaban [Eliquis] Markus,Hussein [id number] [Trelegy Ellipta] Markus,Hussein levofloxacin Markus,Hussein metoprolol succinate Markus,Hussein prednisone Markus,Hussein Allergies Allergy/AdvReac Type Severity Reaction Status Date / Time acetaminophen (From Lortab) Allergy Intermediate Hives Verified 11/19/24 13:29 hydrocodone (From Lortab) Allergy Intermediate Hives Verified 11/19/24 13:29 Discharge Plan Disposition Patient Disposition: Home, Self-Care Condition: Fair Discharge Order Discharge Orders: Discharge Order (Routine); Ordered 02/06/25 Ordered By: Hussein Aparicio Follow up Plan Follow up with: Iesha Monteiro APRN [Nurse Practitioner, Cardiology] - 1 week Referral Note: please call for appointment Brenda Diaz MD [Physician, Pulmonology] - 2 weeks Referral Note: please call for appointment Prescriptions/Medication Reconciliation: New prednisone 20 mg Tablet 40 mg PO DAILY 1 Days Qty: 2 0RF Eliquis 5 mg Tablet 5 mg PO BID 30 Days Qty: 60 0RF Trelegy Ellipta 200-62.5-25 mcg Blister With Device 1 inh inhalation DAILY 30 Days Qty: 60 0RF metoprolol succinate 100 mg tablet extended release 24 hr 100 mg PO DAILY 30 Days Qty: 30 0RF levofloxacin 750 mg tablet 750 mg PO Q48H 3 Days Qty: 2 0RF Continued hydroxyzine HCl 25 mg tablet 25 mg PO Q8H PRN (Reason: anxiety) 90 Days Qty: 270 1RF Trelegy Ellipta 100-62.5-25 mcg blister with device 1 inh inhalation DAILY 30 Days Qty: 60 2RF aspirin [Adult Low Dose Aspirin] 81 mg tablet,delayed release (DR/EC) 81 mg PO DAILY Qty: 90 3RF albuterol sulfate 90 mcg/actuation HFA aerosol inhaler 2 puff inhalation Q4-6H PRN (Reason: shortness of breath or wheezing) Qty: 8.5 2RF clopidogrel 75 mg tablet 75 mg PO DAILY Rx Instructions: Take 1 tablet by mouth once daily citalopram 20 mg tablet 20 mg PO DAILY Rx Instructions: Take 1 tablet by mouth once daily atorvastatin 40 mg tablet 40 mg PO HS Discontinued Airsupra 90-80 mcg/actuation HFA aerosol inhaler 2 inh inhalation 6XD PRN (Reason: Asthma) Qty: 5.9 0RF atenolol 100 mg tablet 50 mg PO TID Rx Instructions: TAKE 1/2 (ONE-HALF) TABLET BY MOUTH THREE TIMES DAILY FOR HIGH BLOOD PRESSURE Problem Reconciliation Problems Reviewed?: Yes Patient Discharge Instructions Patient Instructions: DI for Chronic Obstructive Pulmonary Disease, DI for Atrial Fibrillation, DI for Respiratory Failure, How to Manage Shortness of Breath, Stop Light COPD Print Language: Italian Providers Primary Care Provider: Jennifer Faulkner Admit Provider: Hussein Aparicio Attending Provider: Hussein Aparicio
[2025-02-06 12:00] VITALS: PULSE 90
[2025-02-06 13:32] VITALS: BP 155/93; PULSE 93; O2SAT 94
[2025-02-07 08:16] LABS: Legionella pneumophila Urinary Negative (Negative)
== END 2025-02-06 13:52 | disposition home or self-care (01) | DRG 871 ==
LOC: ER 02-03 00:50 → ICU 02-03 00:54 → 2ND 02-04 11:45
PROVIDERS: Internal Medicine Pulmonary Disease; Nurse Practitioner Family; Admitting Provider Student in an Organized Health Care Education/Training Program; Emergency Provider Emergency Medicine; PCP Nurse Practitioner Family; Visit Provider Student in an Organized Health Care Education/Training Program
DX: A41.9 Sepsis, unspecified organism (principal); E43 Unspecified severe protein-calorie malnutrition; J96.01 Acute respiratory failure with hypoxia; G93.41 Metabolic encephalopathy; I21.A1 Myocardial infarction type 2; J96.02 Acute respiratory failure with hypercapnia; E87.20 Acidosis, unspecified; E87.1 Hypo-osmolality and hyponatremia; J44.1 Chronic obstructive pulmonary disease with (acute) exacerbation; N39.0 Urinary tract infection, site not specified; Z68.41 Body mass index [BMI] 40.0-44.9, adult; E87.5 Hyperkalemia; R73.9 Hyperglycemia, unspecified; T38.0X5A Adverse effect of glucocorticoids and synthetic analogues, initial encounter; Z66 Do not resuscitate; F17.210 Nicotine dependence, cigarettes, uncomplicated; I48.91 Unspecified atrial fibrillation; F41.9 Anxiety disorder, unspecified; F32.A Depression, unspecified; Z79.02 Long term (current) use of antithrombotics/antiplatelets; Z79.899 Other long term (current) drug therapy; Z79.82 Long term (current) use of aspirin; Z11.52 Encounter for screening for COVID-19; Z85.3 Personal history of malignant neoplasm of breast
CPT/HCPCS: 36415; 51798; 71045; 71275; 80048; 80053; 81001; 82803; 83036; 83605; 83735; 84145; 84484; 84540; 85007; 85025; 85378; 87040; 87086; 87449; 87631; 87636; 93005; 93306; 94640; 94660; 94761; 97110; 97162; 97166; 97530; J0696; J1650; J2919; J7120; Q9967

== ENCOUNTER 2025-05-23 15:06 | Outpatient (CLI) | payer MEDICARE, OTHER, SELFPAY ==
[2025-05-23 17:57] LABS: Albumin Level 4.0 g/dl (3.5-5.0); Chloride 93 mmol/L (98-107); Sodium 134 mmol/L (136-145)
[2025-05-23 17:58] LABS: Potassium 4.0 mmoL/L (3.5-5.1)
[2025-05-23 18:00] LABS: Alanine Aminotransferase 12 U/L (12-78); Albumin/Globulin Ratio 1.5 (1.1-1.8); Alkaline Phosphatase 112 U/L (38-126); Anion Gap 15.0 mEq/L (5-15); Aspartate Amino Transferase 24 U/L (14-36); Bilirubin,Total 0.2 mg/dl (0.2-1.3); Blood Urea Nitrogen 7 mg/dl (7-17); Carbon Dioxide 30 mmol/L (22.0-30.0); Creatinine,Serum 0.40 mg/dl (0.52-1.04); Estimated Glomerular Filt Rate 153 ml/min (>60); GFR (African American) 185 ML/MIN (>60); Globulin 2.6 g/dL (1.3-3.2); Total Protein,Serum 6.6 g/dl (6.3-8.2)
[2025-05-23 18:01] LABS: Calcium 8.9 mg/dl (8.4-10.2); Glucose 125 mg/dl (74-100)
[2025-05-23 18:12] LABS: Hematocrit 43.5 % (37.0-47.0); Hemoglobin 14.5 g/dL (12.2-16.2); Immature Granulocytes % 0.2 %; Mean Corpuscular HGB Conc 33.3 g/dL (31.8-35.4); Mean Corpuscular Hemoglobin 32.4 pg (27.0-31.2); Mean Corpuscular Volume 97.1 fl (81-99); Nucleated Red Blood Cells % 0 %; Platelet Count 544 K/mm3 (142-424); Red Blood Count 4.48 M/mm3 (4.20-5.40); Red Cell Distribution Width-SD 45.3 fL; White Blood Count 12.0 K/mm3 (4.8-10.8)
[2025-05-23 18:37] LABS: Thyroid Stimulating Hormone 2.24 uIU/mL (0.465-4.68)
[2025-05-23 19:50] LABS: Vitamin B12 550 pg/mL (239-931)
--- OUTSIDE RECORDS SUMMARY | 2025-05-24 13:50 | XMS_ITS ---
Author Organization Unknown TREATMENT PLAN [facility] Start Date Provider Encounter for Check-up [id number] JOSH Sanon
--- OUTSIDE RECORDS SUMMARY | 2025-05-24 13:50 | XMS_ITS | Encounter Summary ---
Author Organization Healthcare Address [address] [place] [place] [address] Care Team Providers Care Assault Amphibious Vehicle Officer Name Role Phone Jennifer Faulkner APRN Primary Care Provider [phone]- [phone] Encounter Details Date Type Department Care Team (Late st Contact Info) Description 11/13/2023 Orders Only External Location [address] [place] [address] Jennifer Faulkner APRN [address] [id number] Social History Tobacco Use Types Packs/Day Years Used Date Smoking Tobacco: Never Smokeless Tobacco: Never Alcohol Use Standard Drinks/Week Comments Never 0 (1 standard drink = 0.6 oz pur e alcohol) Humiliation, Afraid, Rape, and Kick questionnair e Answer Date Recorded Within the last year, have y ou been afraid of your partner or ex-partner? No 08/19/2023 Within the last year, have y ou been humiliated or emotionally abused in other ways by your partner or ex-partner? No Within the last year, have y ou been kicked, hit, slapped, or otherwise physically hurt by your partner or ex-partner? No 08/19/2023 Within the last year, have y ou been raped or forced to have any kind of sexual activity by your partner or ex-partner? No 08/19/2023 Overall Financial Resource Strain (CARDIA) Elaina toth Date Recorded How hard is it for you to pa y for the very basics like food, housing, medical care, and heating? Not hard at all 08/19/2023 Hunger Vital Sign Answer Date Recorded Within the past 12 months, y ou worried that your food would run out before you got the money to buy more. Never true 08/19/20 23 Within the past 12 months, t he food you bought just didn't last and you didn't have money to get more. Never true 08/19/2023 PRAPARE - Transportation Answer Date Re corded In the past 12 months, has l ack of transportation kept you from medical appointments or from getting medications? No 08/01 In the past 12 months, has l ack of transportation kept you from meetings, work, or from getting things needed for daily living? No 08/19/2023 Housing Stability Vital Sign Answer Haroon e Recorded In the last 12 months, was t here a time when you were not able to pay the mortgage or rent on time? No 08/19/2023 In the last 12 months, how many places have you lived? 1 08/19/2023 In the last 12 months, was t here a time when you did not have a steady place to sleep or slept in a fpc (including now)? No 08/19/2023 Utilities Answer Date Recorded In the past 12 months has th e electric, gas, oil, or water company threatened to shut off services in your home? No 08/19/2023 Comments Unknown Sex and Gender Information Value Date Recorded Sex Assigned at Not on file Legal Sex Female 6:30 PM EDT Gender Identity Not on file Sexual Orientation Not on file documented as of this encounter Plan of Treatment Not on file documented as of this encounter Procedures Procedure Name Priority Date/Time Associated Diagnosis Comments US OUTSIDE IMAGES 11/13/2023 1:47 PM EDT documented in this encounter Results * US OUTSIDE IMAGES (11/13/2023 1:47 PM EDT) Anatomical Region Laterality Modality Ultrasound 11/13/2023 1:47 PM EDT us Jennifer Faulkner DIETITIAN TEACHER IMG US PROCEDURES Final Re sult documented in this encounter Visit Diagnoses Not on filedocumented in this encounter Additional Health Concerns Assessment Noted Time A Body Mass Index follow-up plan has been documented for the patient 08/20/2023 12:19 PM EST documented as of this encounter Care Teams Assault Amphibious Vehicle Officer Relationship Specialty Start Date End Date Jennifer Faulkner APRN [address] [place] [address] PCP - General 09/03/23 documented as of this encounter
--- OUTSIDE RECORDS SUMMARY | 2025-05-24 13:50 | XMS_ITS | Encounter Summary ---
Author Organization Healthcare Address [address] [place] [address] Care Team Providers Care Transmission Inspector Name Role Phone Pcp, No Primary Care Provider UnavailKarie Gaston LPN Unavailable Unavailable Jennifer Faulkner APRN Primary Care Provider [phone]- [phone] Encounter Details Date Type Department Care Team (Late st Contact Info) Description 08/16/2023 Orders Only External Location [address] [place] [address] Provider, External Social History Tobacco Use Types Packs/Day Years Used Date Smoking Tobacco: Never Assessed Humiliation, Afraid, Rape, and Kick questionnair e [...] No 08/19/2023 Overall Financial Resource Strain (CARDIA) Answe r Date Recorded How hard is it for [...] place to sleep or slept in a snf (including now)? No 08/19/2023 Utilities Answer Date Recorded In the past 12 months has th e [employer], gas, oil, or water company threatened to shut off services in your home? No 08/19/2023 Comments Unknown Sex and Gender Information Value Date Recorded Sex Assigned at Not on file Legal Sex Female 6:30 PM EDT Gender Identity Not on file Sexual Orientation Not on file documented as of this encounter Functional Status * Calculated C-SSRS Risk Score (Lifetime/Recent) Answer Date of Assessment Author No Risk Indicated 08/19/2023 8:00 PM Sasha Kothari RN * Question Answer Date of Assessment Author 1. Wish to be (Past 1 Month) No 023 8:00 PM Sasha Kothari RN 2. Non-Specific Active Suici anila Thoughts (Past 1 Month) No 08/19/2023 8:00 PM Collins Kothari RN 6. Suicidal Behavior (Lifetime) No 3 8:00 PM Sasha Kothari RN documented as of this encounter Plan of Treatment Not on file documented as of this encounter Procedures Procedure Name Priority Date/Time Associated Diagnosis Comments XR OUTSIDE IMAGES 08/16/2023 4:55 PM EST documented in this encounter Results * XR OUTSIDE IMAGES (08/16/2023 4:55 PM EST) Anatomical Region Laterality Modality Radiographic Jessica ging 08/16/2023 4:55 PM EST us External Provider IMG XR PROCEDURES Final Result documented in this encounter Visit Diagnoses Not on filedocumented in this encounter Additional Health Concerns Assessment Noted Time A Body Mass Index follow-up plan has been documented for the patient 08/20/2023 12:19 PM EST documented as of this encounter Care Teams Transmission Inspector Relationship Specialty Start Date End Date Pcp, No [address] [place] [address] PCP - General 09/01/20 09/02/23 Jennifer Faulkner, BANDER OPERATOR [address] [place] [address] PCP - General 09/03/23 Karie Dick LPN [employer] [place] [address] TCM Nurse 08/21/23 09/19/23 documented as of this encounter
--- OUTSIDE RECORDS SUMMARY | 2025-05-24 13:50 | XMS_ITS | Encounter Summary ---
Author Organization Healthcare Address [address] [place] [address] Care Team Providers Care Desk Operator Name Role Phone Jennifer Faulkner APRN Primary Care Provider [phone]- [phone] Encounter Details Date Type Department Care Team (Late st Contact Info) Description 11/13/2023 Orders Only External Location [address] [place] [address] Jennifer Faulkner APRN [address] [id number] Social History Tobacco Use Types Packs/Day Years [...] place to sleep or slept in a jail (including now)? No 08/19/2023 Utilities Answer Date [...] Associated Diagnosis Comments US OUTSIDE IMAGES 11/13/2023 1:14 PM EDT documented in this encounter Results * US OUTSIDE IMAGES (11/13/2023 1:14 PM EDT) Anatomical Region Laterality Modality Ultrasound 11/13/2023 1:14 PM EDT us Jennifer Faulkner ASSOCIATE MANAGER IMG US PROCEDURES Final Re sult documented in this encounter Visit Diagnoses Not on filedocumented in this encounter Additional Health Concerns Assessment Noted Time A Body Mass Index follow-up plan has been documented for the patient 08/20/2023 12:19 PM EST documented as of this encounter Care Teams Desk Operator Relationship Specialty Start Date End Date Jennifer Faulkner APRN [address] [place] [address] PCP - General 09/03/23 documented as of this encounter
--- OUTSIDE RECORDS SUMMARY | 2025-05-24 13:50 | XMS_ITS | Clinical Summary ---
Author Organization [facility] Address [address] [place] [address] Care Team Providers Care Enterprise Account Manager Name Role Phone Jennifer Faulkner APRN Primary Care Provider + [phone] Allergies Active Allergy Reactions Criticality Noted Date Comments Hydrocodone-Acetaminophen Unknown - Low Severity 10/16/2022 Medications atenolol (TENORMIN) 50 MG tablet Take 3 tablets by mouth Daily. 09/23/2022 Active atorvastatin (LIPITOR) 40 MG tablet Take 1 tablet by mouth every night at bedtime. 10/01/2022 Active citalopram (CeleXA) 10 MG tablet Take 1 tablet by mouth Daily. 09/11/2022 Active clopidogrel (PLAVIX) 75 MG tablet Take 1 tablet by mouth Daily. 10/03/2022 Active cholecalciferol (VITAMIN D3) 25 MCG (1000 UT) tablet Take 1 tablet by mouth Daily. Active Xarelto 2.5 MG tablet Take 1 tablet by mouth Every 12 (Twelve) Hours. 60 tablet 11 10/16/2022 Active Active Problems Problem Noted Date Diagnosed Date PAD (peripheral artery disease) 10/16/2022 Primary hypertension 10/16/2022 Pure hypercholesterolemia 10/16/2022 Tobacco use 10/16/2022 Family History Medical History Relation Name Comments Heart attack Neg Hx Relation Name Status Comments Father Mother Social History Tobacco Use Types Packs/Day Years Used Date Smoking Tobacco: Every Day Cigarettes 1 50 Smokeless Tobacco: Never AUDIT-C Answer Date Recorded Q1: How often do you have a drink containing alcohol? Never 12/20/2022 Q2: How many drinks containi ng alcohol do you have on a typical day when you are drinking? Patient does not drink Q3: How often do you have si x or more drinks on one occasion? Never 12/20/2022 Abuse Screen Answer Date Recorded Unsafe at Home or Work/School Not on file Feels Threatened by Someone? Not on file Does Anyone Keep You from Co ntacting Others or Doint Things Outside the Home? Not on file 12/23/2023 Physical Sign of Abuse Present Not on file 0 12/23/2023 Housing Stability Answer Date Recorded Current Living Arrangements Not on file 12/01 Potentially Unsafe Housing Conditions Not on sita e 12/23/2023 Family and Community Support Answer Haroon e Recorded Help with Day-to-Day Activities Not on file 06/13/2023 Lonely or Isolated Not on file 06/13/2023 Employment Answer Date Recorded Do you want help finding or keeping work or a shante b? Not on file 06/13/2023 Disabilities Answer Date Recorded Concentrating, Remembering, or Making Decisions Difficulty Not on file 12/23/2023 Doing Errands Independently Difficulty Not on fi le 12/23/2023 Education Answer Date Recorded Help with school or training? Not on file Preferred Language Not on file 06/13/2023 Comments Unknown Sex and Gender Information Value Date Recorded Sex Assigned at Not on file Legal Sex Female 4:12 PM EST Gender Identity Not on file Sexual Orientation Not on file Last Filed Vital Signs Vital Sign Reading Time Taken Comments Blood Pressure 182/101 12/20/2022 4:45 PM EDT post ambulation Pulse 64 12/20/2022 4:00 PM EDT Temperature 36.7 C (98.1 F) 12/20/2022 7:30 AM EDT Respiratory Rate 20 12/20/2022 11:3 9 AM EDT Oxygen Saturation 77% 12/20/2022 4:4 5 PM EDT Inhaled Oxygen Concentration - - Weight 46.1 kg (101 lb 10.1 oz) 12/20/2022 7:30 AM EDT Height 167.6 cm (5' 6 ) 12/20/2022 7:30 AM EDT Body Mass Index 16.4 12/20/2022 7:30 AM EDT Plan of Treatment Health Maintenance Due Date Last Done Comments DXA SCAN 1942 TDAP/TD VACCINES (1 - Tdap) 1961 ZOSTER VACCINE (1 of 2) 1992 RSV Vaccine - Adults (1 - 1- dose 75+ series) 2017 ANNUAL WELLNESS VISIT 10/16/2022 LIPID PANEL 12/21/2023 12/20/2022 INFLUENZA VACCINE 04/01/2025 05/22/2020, 07/01/2016 COVID-19 Vaccine ( season) 2025 08/06/2021, 11/29/2020, 11/01/2020 Pneumococcal Vaccine 50+ Completed 019, 07/14/2017, 07/01/2016 Procedures Procedure Name Priority Date/Time Associated Diagnosis Comments LIPID PANEL STAT 12/20/2022 7:49 AM EDT from Last 3 Months or Most Recently Relevant to Health Maintenance Results * (ABNORMAL) Lipid Panel (12/20/2022 7:49 AM EDT) Total Cholesterol 132 0 - 200 mg/dL 12/20/2022 8:27 AM EDT [facility] Triglycerides 80 0 - 150 mg/dL 12/20/2022 8:27 AM EDT [facility] HDL Cholesterol 75(H) 40 - 60 mg/dL 12/20/2022 8:27 AM EDT [facility] LDL Cholesterol 41 0 - 100 mg/dL 12/20/2022 8:27 AM EDT [facility] VLDL Cholesterol 16 5 - 40 mg/dL 12/20/2022 8:27 AM EDT [facility] LDL/HDL Ratio 0.55 12/20/2022 8:27 AM EDT [facility] Blood Line / Unknown 12/20/2022 7: 49 AM EDT 12/20/2022 7:57 AM EDT [facility] - 12/20/2022 8:27 AM EDT Cholesterol Reference Ranges (U.S. Department of Health and Human Services ATP III Classifications) Desirable <200 mg/dL Borderline High 200-239 mg/dL High Risk >240 mg/dL Triglyceride Reference Ranges (U.S. Department of Health and Human Services ATP III Classifications) Normal <150 mg/dL Borderline High 150-199 mg/dL High 200-499 mg/dL Very High >500 mg/dL HDL Reference Ranges (U.S. Department of Health and Human Services ATP III Classifications) Low <40 mg/dl (major risk factor for CHD) High >60 mg/dl ('negative' risk factor for CHD) LDL Reference Ranges (U.S. Department of Health and Human Services ATP III Classifications) Optimal <100 mg/dL Near Optimal 100-129 mg/dL Borderline High 130-159 mg/dL High 160-189 mg/dL Very High >189 mg/dL us Courtney Arevalo APRN LAB BLOOD ORDERABLES Final Result [facility]
[address] [place] [address], from Last 3 Months or Most Recently Relevant to Health Maintenance Insurance MEDICARE A & B Member Subscriber Plan / Payer (Ef fective 2007-Present) Name:April Leary Member ID:[id number] Relation to Subscriber:Self Name:April Leary Subscriber ID:[id number] Payer ID:[id number] Group ID:Not on file Type:Not on file Address: [address] Care Teams Enterprise Account Manager Relationship Specialty Start Date End Date Jennifer Faulkner APRN PCP - General Internal Medicine 09/27/22
--- OUTSIDE RECORDS SUMMARY | 2025-05-24 13:50 | XMS_ITS | Encounter Summary ---
Author Organization Healthcare Address [address] [place] [address] Care Team Providers Care Clinical Psychology Professor Name Role Phone Pcp, No Primary Care Provider UnavailKarie Gaston LPN Unavailable Unavailable Jennifer Faulkner APRN Primary Care Provider +1- [phone] Encounter Details Date Type Department Care Team (Late st Contact Info) Description 08/16/2023 Orders Only External Location [address] [place] [address] Provider, External Social History Tobacco Use Types [...] the past 12 months has th e [employer], gas, oil, or water company threatened to [...] Associated Diagnosis Comments XR OUTSIDE IMAGES 08/16/2023 6:35 PM EST documented in this encounter Results * XR OUTSIDE IMAGES (08/16/2023 6:35 PM EST) Anatomical Region Laterality Modality Radiographic Jessica ging 08/16/2023 6:35 PM EST us External Provider IMG XR PROCEDURES Final Result documented in this encounter Visit Diagnoses Not on filedocumented in this encounter Additional Health Concerns Assessment Noted Time A Body Mass Index follow-up plan has been documented for the patient 08/20/2023 12:19 PM EST documented as of this encounter Care Teams Clinical Psychology Professor Relationship Specialty Start Date End Date Pcp, No [address] [place] [address] PCP - General 09/01/20 09/02/23 Jennifer Faulkner, MATERIAL CUTTER [address] [place] [address] PCP - General 09/03/23 Karie Dick LPN VALUE-[place]ED [place] [address] TCM Nurse 08/21/23 09/19/23 documented as of this encounter
--- OUTSIDE RECORDS SUMMARY | 2025-05-24 13:50 | XMS_ITS | Encounter Summary ---
Author Organization Healthcare Address [address] [place] [address] Care Team Providers Care Roller Setter Name Role Phone Pcp, No Primary Care Provider UnavailKarie Gaston LPN Unavailable Unavailable Jennifer Faulkner APRN Primary Care Provider +1- [phone] Encounter Details Date Type Department Care Team (Late st Contact Info) Description 08/16/2023 Orders Only External Location [address] [place] [address] Provider, External Social History Tobacco Use Types [...] place to sleep or slept in a longterm (including now)? No 08/19/2023 Utilities Answer Date Recorded In the past 12 months has th e [employer], gas, oil, or water company threatened to [...] Procedure Name Priority Date/Time Associated Diagnosis Comments CT OUTSIDE IMAGES 08/16/2023 6:55 PM EST documented in this encounter Results * CT OUTSIDE IMAGES (08/16/2023 6:55 PM EST) Anatomical Region Laterality Modality Computed Tomogra phy 08/16/2023 6:55 PM EST us External Provider IMG CT PROCEDURES Final Result documented in this encounter Visit Diagnoses Not on filedocumented in this encounter Additional Health Concerns Assessment Noted Time A Body Mass Index follow-up plan has been documented for the patient 08/20/2023 12:19 PM EST documented as of this encounter Care Teams Roller Setter Relationship Specialty Start Date End Date Pcp, No [address] [place] [address] PCP - General 09/01/20 09/02/23 Jennifer Faulkner APRN [address] [place] [address] PCP - General 09/03/23 Karie Dick LPN VALUE-[place]ED [place] [address] TCM Nurse 08/21/23 09/19/23 documented as of this encounter
--- OUTSIDE RECORDS SUMMARY | 2025-05-24 13:51 | XMS_ITS | Clinical Summary ---
Author Organization [facility] Address [address] [place] [address] Care Team Providers Care Network Control Operators Supervisor Name Role Phone Jennifer Faulkner APRN Primary Care Provider [phone]- [phone] Allergies Active Allergy Reactions Criticality Noted Date Comments Hydrocodone-Acetaminophen Other - please document in the comment field,Unknown - Patient states they do not know rxn details Low 05/22/2020 Medications atenolol (Tenormin) 100 MG tablet Take 0.5 tablets (50 mg) by mouth 3 (three) times a day. Active atorvastatin (Lipitor) 40 MG tablet Take 1 tablet (40 mg) by mouth 1 (one) time each day. Active citalopram (CeleXA) 20 MG tablet Take 1 tablet (20 mg) by mouth 1 (one) time each day. Active clopidogrel (Plavix) 75 MG tablet Take 1 tablet (75 mg) by mouth 1 (one) time each day. Active hydrOXYzine HCl (Atarax) 25 MG tablet Take 1 tablet (25 mg) by mouth every 8 (eight) hours if needed for itching. Active Multiple Vitamin (multivitamin) tablet Take 1 tablet by mouth 1 (one) time each day. Active acetaminophen (Tylenol) 500 MG tablet Take 1 tablet (500 mg) by mouth every 6 (six) hours if needed for pain. 100 tablet 3 Active methocarbamol (Robaxin) 500 MG tablet Take 1 tablet (500 mg) by mouth 4 (four) times a day if needed for muscle spasms. 84 tablet 3 Active Additional Information Patient not taking.Reported on 12/23/2023 naloxone (Kloxxado) 8 mg/0.1 mL nasal spray 1. Give 1 spray in nostril for no/slow breathing or cannot wake after opioid use 2. Call 911 3. Repeat in other nostril if symptoms continue 1 each 3 Active oxyCODONE (Roxicodone) 5 MG immediate release tablet Take 1 tablet (5 mg) by mouth every 4 (four) hours if needed for severe pain. 20 tablet 3 Active Additional Information Patient not taking.Reported on 12/23/2023 nicotine (Nicoderm CQ) 7 MG/24HR patch Place 1 patch on the skin 1 (one) time each day over 24 hours for 14 days. 14 patch 3 Active Active Problems Problem Noted Date Diagnosed Date At high risk for falls 09/03/2023 A-fib 08/18/2023 Overview (08/18/2023): Afib RVR on 08/18 Takes atenolol 50mg TID, restarted at 25mg TID Multiple closed fractures of ribs of left side 1 10/18/2022 Overview (08/18/2023): IS and pulm hygiene Pain control Resolved Problems Problem Noted Date Diagnosed Date Resolved Date Fall 08/18/2023 08/20/2023 Overview (08/18/2023): Ground level fall on 08/14 Tertiary 08/18 (admitted 08/17) Pneumothorax 08/17/2023 08/20/2023 Overview (08/18/2023): Left - 08/16: L CT placed at [facility] - 08/18: placed to H20 seal Family History Medical History Relation Name Comments No Known Problems Father No Known Problems Mother Relation Name Status Comments Father Mother Social History Tobacco Use Types Packs/Day Years Used Date Smoking Tobacco: Every Day Cigarettes 1 50 Smokeless Tobacco: Never Alcohol Use Standard Drinks/Week [...] and heating? Not hard at all 08/19/2023 PHQ-2 Answer Date Recorded Patient Health Questionnaire-2 Score 2 12/23/2023 Hunger Vital Sign Answer Date Recorded Within the past 12 months, y ou worried that your food would run out before you got the money to buy more. Never true 08/19/20 Within the past 12 months, t he [...] place to sleep or slept in a retirement (including now)? No 08/19/2023 Utilities Answer Date [...] Sign Reading Time Taken Comments Blood Pressure 164/71 12/23/2023 3:18 PM EDT Pulse 65 12/23/2023 3:18 PM EDT Temperature 36.2 C (97.1 F) 12/23/2023 3:16 PM EDT Respiratory Rate 17 08/20/2023 11:26 AM EST Oxygen Saturation 87% 08/20/2023 11:26 AM EST Inhaled Oxygen Concentration - - Weight 44.8 kg (98 lb 12.3 oz) 12/23/2023 3:16 P M EDT Height 167.6 cm (5' 6 ) 12/23/2023 3:16 PM EDT Body Mass Index 15.94 12/23/2023 3:16 PM EDT Plan of Treatment Health Maintenance Due Date Last Done Comments [facility]-Bone Density Scan 1940 [facility]Medicare Annual Wellness (AWV) 1942 [facility]-/Child/Adol SDOH Screenings 1942 [facility]- SDOH Screenings 1960 [facility]-Adult SDOH Screenings 1960 [facility]-DTaP,Tdap,and Td Vaccines (1 - Tdap) 1961 [facility]Y-Zoster Vaccines (1 of 2) 1992 [facility]Y-RSV Vaccine: 60+ Years or (1 - 1-dose 75+ series) 2017 [facility]-Depression Screening 12/22/2024 12/23/2023 [id number] Vaccine (4 - season) 2025 08/06/2021, 11/29/2020, 11/01/2020 [facility]Y-Influenza Vaccine (#1) 05/02/202510/03, 07/01/2016 [facility]-Pneumococcal Vaccine: 50+ Years Completed 04/12/2019, 07/14/2017, 07/01/2016 HPV Vaccines Aged Out No longer eligi ble based on patient's age to complete this topic [facility]Y-HIB Vaccines Aged Out No longer e ligible based on patient's age to complete this topic [facility]-Hepatitis A Vaccines Aged Out No longer eligible based on patient's age to complete this topic UKY-IPV Vaccines Aged Out No longer e ligible based on patient's age to complete this topic UKY-Rotavirus Vaccines Aged Out No lo nger eligible based on patient's age to complete this topic Insurance MEDICARE Member Subscriber Plan / Payer (Ef fective 2007-Present) Name:April Leary Member ID:[id number] Relation to Subscriber:Self Name:April Leary Subscriber ID:[id number] Payer ID:MEDICARE Group ID:Not on file Type:Medicare Address: [address] [facility] Advance Directives * Full Code (Latest Code Status on File) Date Activated Date Inactivated Comments 08/17/2023 1:42 AM 08/20/2023 3:20 PM Question Answer Comments Patient has decision-making capacity? Yes Care Teams Network Control Operators Supervisor Relationship Specialty Start Date End Date Jennifer Faulkner APRN [address] [place] [address] PCP - General 09/03/23
== END 2025-05-23 23:59 | disposition home or self-care (01) ==
LOC: LAB.DROPOF 05-24 13:48
PROVIDERS: PCP Nurse Practitioner Family; Visit Provider Nurse Practitioner Family
DX: F32.A Depression, unspecified (principal); I10 Essential (primary) hypertension; N39.0 Urinary tract infection, site not specified; I48.91 Unspecified atrial fibrillation
CPT/HCPCS: 80053; 82607; 84443; 85025; 87086

== ENCOUNTER 2025-05-31 14:53 | Outpatient (CLI) | payer MEDICARE, OTHER, SELFPAY ==
--- OUTSIDE RECORDS SUMMARY | 2025-05-31 14:56 | XMS_ITS | Clinical Summary ---
Author Organization [facility] Address [address] [place] [address] Care Team Providers Care Brain Wave Technician Name Role Phone Jennifer Faulkner APRN Primary Care Provider + [phone] Allergies Active Allergy Reactions Criticality Noted Date [...] - 200 mg/dL 12/20/2022 8:27 AM EDT [facility] Triglycerides 80 0 - 150 mg/dL 12/20/2022 8:27 AM EDT [facility] HDL Cholesterol 75(H) 40 - 60 mg/dL 12/20/2022 8:27 AM EDT [facility] LDL Cholesterol 41 0 - 100 mg/dL 12/20/2022 8:27 AM EDT [facility] VLDL Cholesterol 16 5 - 40 mg/dL 12/20/2022 8:27 AM EDT [facility] LDL/HDL Ratio 0.55 12/20/2022 8:27 AM EDT [facility] Blood Line / Unknown 12/20/2022 7: 49 AM EDT 12/20/2022 7:57 AM EDT [facility] - 12/20/2022 8:27 AM EDT Cholesterol [...] Arevalo APRN LAB BLOOD ORDERABLES Final Result [facility]
[address] [place] [address], from Last 3 Months or Most Recently Relevant to Health Maintenance Insurance MEDICARE A & B Member Subscriber Plan / Payer (Ef fective 2007-Present) Name:April Leary Member ID:[id number] Relation to Subscriber:Self Name:April Leary Subscriber ID:[id number] Payer ID:[id number] Group ID:Not on file Type:Not on file Address: [address] Care Teams Brain Wave Technician Relationship Specialty Start Date End Date Jennifer Faulkner APRN PCP - General Internal Medicine 09/27/22
--- OUTSIDE RECORDS SUMMARY | 2025-05-31 14:56 | XMS_ITS | Encounter Summary ---
Author Organization Healthcare Address [address] [place] [address] Care Team Providers Care Compounding And Finishing Supervisor Name Role Phone Pcp, No Primary Care Provider UnavailKarie Gaston LPN Unavailable Unavailable Jennifer Faulkner APRN Primary Care Provider +1- [phone] Encounter Details Date Type Department Care Team (Late st Contact Info) Description 08/16/2023 Orders Only External Location [address] [place] [address] Provider, External Social History Tobacco Use Types [...] place to sleep or slept in a mcfp (including now)? No 08/19/2023 Utilities Answer Date Recorded In the past 12 months has th e [employer], gas, oil, or water company threatened to [...] documented as of this encounter Care Teams Compounding And Finishing Supervisor Relationship Specialty Start Date End Date Pcp, No [address] [place] [address] PCP - General 09/01/20 09/02/23 Jennifer Faulkner, DISABILITIES SERVICES OFFICER [address] [place] [address] PCP - General 09/03/23 Karie Dick LPN VALUE-[place] [place] [address] TCM Nurse 08/21/23 09/19/23 documented as of this encounter
--- OUTSIDE RECORDS SUMMARY | 2025-05-31 14:56 | XMS_ITS | Encounter Summary ---
Author Organization Healthcare Address [address] [place] [address] Care Team Providers Care Implementation Advisor Name Role Phone Pcp, No Primary Care Provider UnavailKarie Gaston LPN Unavailable Unavailable Jennifer Faulkner APRN Primary Care Provider +1- [phone] Encounter Details Date Type Department Care Team (Late st Contact Info) Description 08/16/2023 Orders Only External Location [address] [place] [address] Provider, External Social History Tobacco Use Types [...] place to sleep or slept in a fdc (including now)? No 08/19/2023 Utilities Answer Date Recorded In the past 12 months has th e [employer], gas, oil, or water company threatened to [...] documented as of this encounter Care Teams Implementation Advisor Relationship Specialty Start Date End Date Pcp, No [address] [place] [address] PCP - General 09/01/20 09/02/23 Jennifer Faulkner, YARD WORKER [address] [place] [address] PCP - General 09/03/23 Karie Dick LPN VALUE[employer] [address] TCM Nurse 08/21/23 09/19/23 documented as of this encounter
--- OUTSIDE RECORDS SUMMARY | 2025-05-31 14:56 | XMS_ITS | Encounter Summary ---
Author Organization Healthcare Address [address] [place] [address] Care Team Providers Care Supervisor Sound Technician Name Role Phone Pcp, No Primary Care Provider UnavailKarie Gaston LPN Unavailable Unavailable Jennifer Faulkner APRN Primary Care Provider +1- [phone] Encounter Details Date Type Department Care Team (Late st Contact Info) Description 08/16/2023 Orders Only External Location [address] [place] [address] Provider, External Social History Tobacco Use Types [...] place to sleep or slept in a detention (including now)? No 08/19/2023 Utilities Answer Date Recorded In the past 12 months has th e [employer], gas, oil, or water company threatened to [...] documented as of this encounter Care Teams Supervisor Sound Technician Relationship Specialty Start Date End Date Pcp, No [address] [place] [address] PCP - General 09/01/20 09/02/23 Jennifer Faulkner APRN [address] [place] [address] PCP - General 09/03/23 Karie Dick LPN VALUE-BASED [place] [address] TCM Nurse 08/21/23 09/19/23 documented as of this encounter
--- OUTSIDE RECORDS SUMMARY | 2025-05-31 14:56 | XMS_ITS | Clinical Summary ---
Author Organization [facility] Address [address] [place] [address] Care Team Providers Care Ward Service Supervisor Name Role Phone Jennifer Faulkner APRN Primary Care Provider +1- [phone] Allergies Active Allergy Reactions Criticality Noted Date [...] place to sleep or slept in a chcf (including now)? No 08/19/2023 Utilities Answer Date [...] Last Done Comments [facility]-Bone Density Scan 1942 [facility]-Medicare Annual Wellness (AWV) 1942 [facility]-/Child/Adol SDOH Screenings 1942 [facility]- SDOH Screenings 1960 [facility]-Adult SDOH Screenings 1960 [facility]-DTaP,Tdap,and Td Vaccines (1 - Tdap) 1961 [facility]-Zoster Vaccines (1 of 2) 1992 [facility]-RSV Vaccine: 60+ Years or (1 - 1-dose 75+ series) 2017 [facility]-Depression Screening 12/22/2024 12/23/2023 [id number] Vaccine (4 - season) 2025 08/06/2021, 11/29/2020, [...] Payer (Ef fective 2007-Present) Name:April Leary Member ID:[id number] Relation to Subscriber:Self Name:April Leary Subscriber ID:[id number] Payer ID:MEDICARE Group ID:Not on file Type:Medicare Address: [address] [facility] Advance Directives * Full Code (Latest Code Status on File) Date Activated Date Inactivated Comments 08/17/2023 1:42 AM 08/20/2023 3:20 PM Question Answer Comments Patient has decision-making capacity? Yes Care Teams Ward Service Supervisor Relationship Specialty Start Date End Date Jennifer Faulkner APRN [address] [place] [address] PCP - General 09/03/23
--- OUTSIDE RECORDS SUMMARY | 2025-05-31 14:56 | XMS_ITS | Encounter Summary ---
Author Organization Healthcare Address [address] [place] [address] Care Team Providers Care Marketing Designer Name Role Phone Jennifer Faulkner APRN Primary Care Provider +1- [phone] Encounter Details Date Type Department Care Team (Late st Contact Info) Description 11/13/2023 Orders Only External Location [address] [place] [address] Jennifer Faulkner APRN [address] [id number] Social History Tobacco Use Types Packs/Day Years [...] 11/13/2023 1:14 PM EDT us Jennifer Faulkner WIND UP OPERATOR IMG US PROCEDURES Final Re sult documented in this encounter Visit Diagnoses Not on filedocumented in this encounter Additional Health Concerns Assessment Noted Time A Body Mass Index follow-up plan has been documented for the patient 08/20/2023 12:19 PM EST documented as of this encounter Care Teams Marketing Designer Relationship Specialty Start Date End Date Jennifer Faulkner APRN [address] [place] [address] PCP - General 09/03/23 documented as of this encounter
--- OUTSIDE RECORDS SUMMARY | 2025-05-31 14:56 | XMS_ITS | Encounter Summary ---
Author Organization Healthcare Address [address] [place] [place] [address] Care Team Providers Care Luster Applicator Name Role Phone Jennifer Faulkner APRN Primary Care Provider +1- [phone] Encounter Details Date Type Department Care Team (Late st Contact Info) Description 11/13/2023 Orders Only External Location [address] [place] [address] Jennifer Faulkner APRN [address] [id number] Social History Tobacco Use Types Packs/Day Years [...] place to sleep or slept in a fci (including now)? No 08/19/2023 Utilities Answer Date [...] 11/13/2023 1:47 PM EDT us Jennifer Faulkner CONTRACT PARALEGAL IMG US PROCEDURES Final Re sult documented in this encounter Visit Diagnoses Not on filedocumented in this encounter Additional Health Concerns Assessment Noted Time A Body Mass Index follow-up plan has been documented for the patient 08/20/2023 12:19 PM EST documented as of this encounter Care Teams Luster Applicator Relationship Specialty Start Date End Date Jennifer Faulkner APRN [address] [place] [address] PCP - General 09/03/23 documented as of this encounter
[2025-05-31 15:40] VITALS: PULSE 66; PULSE 68
[2025-05-31] MEDS: ALBUTEROL 0.083% 2.5 MG/3 ML NEB IH (15:40)
== END 2025-05-31 23:59 | disposition home or self-care (01) ==
LOC: RT 14:54
PROVIDERS: PCP Nurse Practitioner Family; Visit Provider Internal Medicine Pulmonary Disease
DX: J44.9 Chronic obstructive pulmonary disease, unspecified (principal); R94.2 Abnormal results of pulmonary function studies
CPT/HCPCS: 94060; 94618; 94640; 94726; 94729

== ENCOUNTER 2025-06-06 10:28 | Outpatient (CLI) | payer MEDICARE, OTHER, SELFPAY ==
--- NOTE | 2025-06-06 10:30 | CT_ITS ---
FINAL REPORT TECHNIQUE: Pre-and postcontrast axial imaging of the abdomen and pelvis was obtained.This study was performed with techniques to keep radiation doses as low as reasonably achievable, (ALARA). Individualized dose reduction technique using automated exposure control or adjustment of mA and/or kV according to the patient's size were employed. CLINICAL HISTORY: adrenal mass left COMPARISON: 02/06/2024 and 12/03/2018 FINDINGS: There are new reticulonodular and nodular opacities in the right lower lobe favored to represent pneumonia. The liver is homogeneous. No focal lesion. The gallbladder is absent. The spleen and right adrenal gland are unremarkable. The left adrenal mass measuring 3.4 cm demonstrates greater than 60% washout on 15 minute delayed imaging most consistent with adenoma. This is stable in size since 2019. Pancreas is without acute abnormality. The kidneys demonstrate a nonobstructing stone in the left kidney. No hydronephrosis. No renal mass. GI tract shows a small hiatal hernia. There is no evidence of small-bowel obstruction. The appendix is not seen but there are no secondary signs of appendicitis. There is a large amount of stool in the colon. Short segment wall thickening of the proximal sigmoid colon could be related to peristalsis but neoplasm not excluded. The uterus is absent. Postoperative changes in the abdominal aorta. No abdominal or pelvic lymphadenopathy. No free fluid. No acute osseous abnormality. IMPRESSION: New opacities right lower lobe favored to represent pneumonia. Left adrenal mass stable to 2019 with washout characteristics of adenoma. Short segment wall thickening proximal sigmoid colon, neoplasm not excluded. Recommend correlation with any recent colonoscopy. Recommend colonoscopy if one not already obtained. Constipation. Reviewed, Interpreted and Dictated by Dimple Dunaway MD Transcribed by Maira Curtis Authenticated and [facility]
--- OUTSIDE RECORDS SUMMARY | 2025-06-06 10:34 | XMS_ITS | Encounter Summary ---
Author Organization Healthcare Address [address] [place] [address] Care Team Providers Care Cable Coverer Name Role Phone Pcp, No Primary Care Provider UnavailKarie Gaston LPN Unavailable Unavailable Jennifer Faulkner APRN Primary Care Provider [phone]- [phone] Encounter Details Date Type Department Care Team (Late st Contact Info) Description 08/16/2023 Orders Only External Location [address] [place] [address] Provider, External Social History Tobacco Use Types [...] the past 12 months has th e [employer], gas, oil, or water company threatened to [...] documented as of this encounter Care Teams Cable Coverer Relationship Specialty Start Date End Date Pcp, No [address] [place] [address] PCP - General 09/01/20 09/02/23 Jennifer Faulkner, CNA PCT [address] [place] [address] PCP - General 09/03/23 Karie Dick LPN VALUE-BASED [place] [address] TCM Nurse 08/21/23 09/19/23 documented as of this encounter
--- OUTSIDE RECORDS SUMMARY | 2025-06-06 10:34 | XMS_ITS | Encounter Summary ---
Author Organization Healthcare Address [address] [place] [address] Care Team Providers Care Structural Drafter Name Role Phone Jennifer Faulkner APRN Primary Care Provider +1- [phone] Encounter Details Date Type Department Care Team (Late st Contact Info) Description 11/13/2023 Orders Only External Location [address] [place] [address] Jennifer Faulkner APRN [address] [id number] Social History Tobacco Use Types Packs/Day Years [...] place to sleep or slept in a penitentiary (including now)? No 08/19/2023 Utilities Answer Date [...] 11/13/2023 1:14 PM EDT us Jennifer Faulkner PIE CHEF IMG US PROCEDURES Final Re sult documented in this encounter Visit Diagnoses Not on filedocumented in this encounter Additional Health Concerns Assessment Noted Time A Body Mass Index follow-up plan has been documented for the patient 08/20/2023 12:19 PM EST documented as of this encounter Care Teams Structural Drafter Relationship Specialty Start Date End Date Jennifer Faulkner APRN [address] [place] [address] PCP - General 09/03/23 documented as of this encounter
--- OUTSIDE RECORDS SUMMARY | 2025-06-06 10:34 | XMS_ITS | Encounter Summary ---
Author Organization Healthcare Address [address] [place] [address] Care Team Providers Care Electric Power Line Repairer Name Role Phone Jennifer Faulkner APRN Primary Care Provider [phone]- [phone] Encounter Details Date Type Department Care Team (Late st Contact Info) Description 11/13/2023 Orders Only External Location [address] [place] [address] Jennifer Faulkner APRN [address] [id number] Social History Tobacco Use Types Packs/Day Years [...] place to sleep or slept in a nursing home (including now)? No 08/19/2023 Utilities Answer Date [...] 11/13/2023 1:47 PM EDT us Jennifer Faulkner FARM MACHINERY MECHANIC IMG US PROCEDURES Final Re sult documented in this encounter Visit Diagnoses Not on filedocumented in this encounter Additional Health Concerns Assessment Noted Time A Body Mass Index follow-up plan has been documented for the patient 08/20/2023 12:19 PM EST documented as of this encounter Care Teams Electric Power Line Repairer Relationship Specialty Start Date End Date Jennifer Faulkner APRN [address] [place] [address] PCP - General 09/03/23 documented as of this encounter
--- OUTSIDE RECORDS SUMMARY | 2025-06-06 10:34 | XMS_ITS | Encounter Summary ---
Author Organization Healthcare Address [address] [place] [address] Care Team Providers Care Health Nurse Name Role Phone Pcp, No Primary Care Provider UnavailKarie Gaston LPN Unavailable Unavailable Jennifer Faulknre APRN Primary Care Provider +1- [phone] Encounter Details Date Type Department Care Team (Late st Contact Info) Description 08/16/2023 Orders Only External Location [address] [place] [address] Provider, External Social History Tobacco Use Types [...] place to sleep or slept in a long-term (including now)? No 08/19/2023 Utilities Answer Date Recorded In the past 12 months has th e [employer], gas, oil, or water company threatened to [...] documented as of this encounter Care Teams Health Nurse Relationship Specialty Start Date End Date Pcp, No [address] [place] [address] PCP - General 09/01/20 09/02/23 Jennifer Faulkner APRN [address] [place] [address] PCP - General 09/03/23 Karie Dick LPN VALUE[employer] [address] TCM Nurse 08/21/23 09/19/23 documented as of this encounter
--- OUTSIDE RECORDS SUMMARY | 2025-06-06 10:34 | XMS_ITS | Encounter Summary ---
Author Organization Healthcare Address [address] [place] [address] Care Team Providers Care Tool Inspector Name Role Phone Pcp, No Primary Care Provider UnavailKarie Gaston LPN Unavailable Unavailable Jennifer Faulkner APRN Primary Care Provider +1- [phone] Encounter Details Date Type Department Care Team (Late st Contact Info) Description 08/16/2023 Orders Only External Location [address] [place] [address] Provider, External Social History Tobacco Use Types [...] place to sleep or slept in a senior living (including now)? No 08/19/2023 Utilities Answer Date Recorded In the past 12 months has th e [employer], gas, oil, or water company threatened to [...] documented as of this encounter Care Teams Tool Inspector Relationship Specialty Start Date End Date Pcp, No [address] [place] [address] PCP - General 09/01/20 09/02/23 Jennifer Faulkner, SNUFF GRINDER AND SCREENER [address] [place] [address] PCP - General 09/03/23 Karie Dick LPN [employer] [address] TCM Nurse 08/21/23 09/19/23 documented as of this encounter
--- OUTSIDE RECORDS SUMMARY | 2025-06-06 10:34 | XMS_ITS | Clinical Summary ---
Author Organization [facility] Address [address] [place] [address] Care Team Providers Care Director Digital Advertising Name Role Phone Jennifer Faulkner APRN Primary Care Provider +1- [phone] Allergies Active Allergy Reactions Criticality Noted Date [...] place to sleep or slept in a prison (including now)? No 08/19/2023 Utilities Answer Date [...] Last Done Comments [facility]-Bone Density Scan 1942 [facility]-Medicare Annual Wellness (AWV) 1942 [facility]-/Child/Adol SDOH Screenings 1942 [facility]- SDOH Screenings 1960 [facility]-Adult SDOH Screenings 1960 [facility]-DTaP,Tdap,and Td Vaccines (1 - Tdap) 1961 [facility]-Zoster Vaccines (1 of 2) 1992 [facility]-RSV Vaccine: 60+ Years or (1 - 1-dose 75+ series) 2017 [facility]-Depression Screening 12/22/2024 12/23/2023 [id number] Vaccine (4 - season) 2025 08/06/2021, 11/29/2020, [...] Payer (Ef fective 2007-Present) Name:April Leary Member ID:[id number] Relation to Subscriber:Self Name:April Leary Subscriber ID:[id number] Payer ID:[id number] Group ID:Not on file Type:Medicare Address: [address] [facility] Advance Directives * Full Code (Latest Code Status on File) Date Activated Date Inactivated Comments 08/17/2023 1:42 AM 08/20/2023 3:20 PM Question Answer Comments Patient has decision-making capacity? Yes Care Teams Director Digital Advertising Relationship Specialty Start Date End Date Jennifer Faulkner APRN [address] [place] [address] PCP - General 09/03/23
--- OUTSIDE RECORDS SUMMARY | 2025-06-06 10:34 | XMS_ITS | Clinical Summary ---
Author Organization [facility] Address [address] [place] [address] Care Team Providers Care History Card Clerk Name Role Phone Jennifer Faulkner APRN Primary Care Provider + [phone] Allergies Active Allergy Reactions Criticality Noted Date [...] - 200 mg/dL 12/20/2022 8:27 AM EDT [facility] Triglycerides 80 0 - 150 mg/dL 12/20/2022 8:27 AM EDT [facility] HDL Cholesterol 75(H) 40 - 60 mg/dL 12/20/2022 8:27 AM EDT [facility] LDL Cholesterol 41 0 - 100 mg/dL 12/20/2022 8:27 AM EDT [facility] VLDL Cholesterol 16 5 - 40 mg/dL 12/20/2022 8:27 AM EDT [facility] LDL/HDL Ratio 0.55 12/20/2022 8:27 AM EDT [facility] Blood Line / Unknown 12/20/2022 7: 49 AM EDT 12/20/2022 7:57 AM EDT [facility] - 12/20/2022 8:27 AM EDT [...] Arevalo APRN LAB BLOOD ORDERABLES Final Result [facility]
[address] [place] [address], from Last 3 Months or Most Recently Relevant to Health Maintenance Insurance MEDICARE A & B Member Subscriber Plan / Payer (Ef fective 2007-Present) Name:April Leary Member ID:[id number] Relation to Subscriber:Self Name:April Leary Subscriber ID:[id number] Payer ID:[id number] Group ID:Not on file Type:Not on file Address: [address] Care Teams History Card Clerk Relationship Specialty Start Date End Date Jennifer Faulkner APRN PCP - General Internal Medicine 09/27/22
[2025-06-06] MEDS: SODIUM CHLORIDE 0.9% 10ML SYR (RAD ONLY) 10 ML IV (11:06)
[2025-06-06] MEDS: BARIUM SULFATE(READI-CAT2);450ML BOTTLE 450 ML PO (11:06)
[2025-06-06] MEDS: IOPAMIDOL-370 (76%);100ML BOTTLE 75 ML IV (11:06)
[2025-06-06 17:57] LABS: Hematocrit 45.1 % (37.0-47.0); Hemoglobin 15.3 g/dL (12.2-16.2); Immature Granulocytes % 0.3 %; Mean Corpuscular HGB Conc 33.9 g/dL (31.8-35.4); Mean Corpuscular Hemoglobin 33.2 pg (27.0-31.2); Mean Corpuscular Volume 97.8 fl (81-99); Nucleated Red Blood Cells % 0 %; Platelet Count 399 K/mm3 (142-424); Red Blood Count 4.61 M/mm3 (4.20-5.40); Red Cell Distribution Width-SD 47.4 fL; White Blood Count 9.5 K/mm3 (4.8-10.8)
== END 2025-06-06 23:59 | disposition home or self-care (01) ==
LOC: RAD 10:30
PROVIDERS: PCP Nurse Practitioner Family; Visit Provider Nurse Practitioner Family
DX: E27.8 Other specified disorders of adrenal gland (principal); K59.00 Constipation, unspecified; D72.829 Elevated white blood cell count, unspecified; R91.8 Other nonspecific abnormal finding of lung field; R93.3 Abnormal findings on diagnostic imaging of other parts of digestive tract
CPT/HCPCS: 74178; 85025; Q9967